=== PATIENT | male | born 1950 | race Caucasian/White ===

== ENCOUNTER → 2017-05-26 | Day surgery (SDC) | payer MEDICARE ==
[~2017-05-26] MED LIST: AMIO200T PO; AMIO200T2 PO; AMLO5TAB4 PO; ASPI325T8 PO; ATOR10TA PO; CLOP75TA57 PO; FENO54TA PO; FERR325T72 PO; GLIP10TA13 PO; GLIP5TAB10 PO; HYDR-2678 PO; HYDROmorphone 2 MG/ML VIAL IV PRN; INSU100I13 SQ; INSU100I17 SQ; INSU100I27 SQ; IV RINGERS,LACTATED 1000ML 1,000 ML IV SCH; LIDOCAINE 1% 1 ML SYRINGE. ID PRN; LIDOCAINE 2% PF Vial for OR 5 ML VIAL. ONE; LISI-334 PO; METF-620 PO; MORPHINE SULFATE 2 MG/ML DISP.SYRIN. IV PRN; Metoprolol Tartrate PO; ONDANSETRON PF 4 MG/2 ML VIAL. IV PRN; OXYC-323 PO; PANT40TA3 PO; PROCHLORPERAZINE 10 MG/2 ML VIAL. IV PRN; PROPOFOL 0 ML IV ONE; PROPOFOL 20 ML IV ONE; Sennosides/Docusate Sodium PO; TRAM50TA PO; fentaNYL PF VIAL 100 MCG/2 ML VIAL IV PRN
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
[2017-05-26 10:21] VITALS: BP 167/90
--- NOTE | 2017-05-27 13:14 | PATHOLOGY ---
PATHOLOGY REPORT * * * * * * * * FINAL DIAGNOSIS: Colon biopsy, sigmoid polyp: - Tubular adenoma. COMMENT: There is no high-grade dysplasia or evidence of malignancy. (JPM:pit; 05/27/2017) REPORT ELECTRONICALLY SIGNED BY: Robert Pascual M.D. DATE/TIME: 05/27/2017 13:13 * * * * * * * * GROSS PATHOLOGY: Received in formalin labeled "Lewis Justice, sigmoid polyp," is a segment of manzano soft tissue measuring 0.4 cm in maximum dimension. The specimen is submitted entirely in cassette A1. (JPM; 05/26/17) INITIAL CPT CODE(S): A; 00679 Professional services performed by [facility] [place] [address] Technical services performed by [facility] at [address] [place] [address], [facility] [address], [place] [address]. SPECIMEN(S) RECEIVED: A.Sigmoid polyp CLINICAL HISTORY: Screening PATIENT: LEWIS JUSTICE /AGE: 6 1950 (Age: 67) PATIENT #: [id number] ALT CASE #: SPECIMEN COLLECTION DATE: 05/26/2017 SPECIMEN RECEIVED DATE: 05/26/2017 [facility] - [address] [place] [address] - PHONE: [phone] * * * END OF REPORT * * *
== END | disposition home or self-care (01) ==
LOC: SURG 08:27
PROVIDERS: ATTEND Internal Medicine Gastroenterology
DX: Z12.11 Encounter for screening for malignant neoplasm of colon (principal); D12.5 Benign neoplasm of sigmoid colon; E78.00 Pure hypercholesterolemia, unspecified; I25.10 Atherosclerotic heart disease of native coronary artery without angina pectoris; I12.9 Hypertensive chronic kidney disease with stage 1 through stage 4 chronic kidney disease, or unspecified chronic kidney disease; E11.22 Type 2 diabetes mellitus with diabetic chronic kidney disease; N18.2 Chronic kidney disease, stage 2 (mild); D64.9 Anemia, unspecified; Z86.69 Personal history of other diseases of the nervous system and sense organs; Z90.49 Acquired absence of other specified parts of digestive tract; Z86.73 Personal history of transient ischemic attack (TIA), and cerebral infarction without residual deficits; Z88.0 Allergy status to penicillin
CPT/HCPCS: 45385; 82962; 88305; J2001; J2704

== ENCOUNTER 2018-05-24 16:11 | Inpatient (IN) | payer MEDICARE ==
[2018-05-24 17:51] LABS: ADD MAN DIFF? NO
[2018-05-24 17:53] LABS: BASO # 0.1 x10^3/uL (0.0-0.2); BASO % 1 % (0-3); EOS # 0.2 x10^3/uL (0.0-0.7); EOS % 2 % (0-3); HEMOGLOBIN 13.3 g/dL (13.0-17.5); LYMPH # 1.5 x10^3/uL (1.0-4.8); LYMPH % 14 % (24-48); MEAN CORPUSCULAR HEMOGLOBIN 29 pg (25-35); MEAN CORPUSCULAR HGB CONC 34 g/dL (31-37); MEAN CORPUSCULAR VOLUME 84 fL (79-100); MONO # 0.5 x10^3/uL (0.0-1.1); MONO % 5 % (0-9); NEUT # 8.1 x10^3uL (1.8-7.7); NEUT % 78 % (31-73); PLATELET COUNT 211 x10^3/uL (140-400); RED BLOOD COUNT 4.65 x10^6/uL (4.30-5.70); RED CELL DISTRIBUTION WIDTH 15.3 % (11.5-14.5); WHITE BLOOD COUNT 10.4 x10^3/uL (4.0-11.0)
[2018-05-24 18:03] LABS: ANION GAP 11 (6-14); BLOOD UREA NITROGEN 40 mg/dL (8-26); BUN/CREATININE RATIO 21 (6-20); CALCIUM 9.2 mg/dL (8.5-10.1); CARBON DIOXIDE 27 mmol/L (21-32); CHLORIDE 96 mmol/L (98-107); CREATININE 1.9 mg/dL (0.7-1.3); GFR 35.6; GLUCOSE 310 mg/dL (70-99); POTASSIUM 4.4 mmol/L (3.5-5.1); SODIUM 134 mmol/L (136-145)
[2018-05-24 18:09] LABS: ALBUMIN 3.8 g/dL (3.4-5.0); ALK PHOS 131 U/L (46-116); ALT (SGPT) 35 U/L (16-63); AST (SGOT) 30 U/L (15-37); TOTAL BILIRUBIN 0.4 mg/dL (0.2-1.0); TOTAL PROTEIN 7.6 g/dL (6.4-8.2)
[2018-05-24] MEDS: ONDANSETRON PF 4 MG/2 ML VIAL. IV (18:20)
[2018-05-24] MEDS ORDERED: fentaNYL PF VIAL 100 MCG/2 ML VIAL IV (19:45)
[2018-05-24] MEDS ORDERED: ONDANSETRON PF 4 MG/2 ML VIAL. IV (19:45)
[2018-05-24] MEDS ORDERED: ACETAMINOPHEN 325 MG TABLET. PO (19:45)
[2018-05-24] MEDS: IV NORMAL SALINE 1000ML BAG 1,000 ML IV (19:54)
[2018-05-25] MEDS: IV NORMAL SALINE 1000ML BAG 1,000 ML IV ×3 (03:32→12:10)
[2018-05-25 07:19] LABS: ADD MAN DIFF? NO
[2018-05-25 07:26] LABS: BASO # 0.1 x10^3/uL (0.0-0.2); BASO % 1 % (0-3); EOS # 0.2 x10^3/uL (0.0-0.7); EOS % 2 % (0-3); HEMATOCRIT 37.7 % (39.0-53.0); HEMOGLOBIN 13.1 g/dL (13.0-17.5); LYMPH # 1.6 x10^3/uL (1.0-4.8); LYMPH % 16 % (24-48); MEAN CORPUSCULAR HEMOGLOBIN 29 pg (25-35); MEAN CORPUSCULAR HGB CONC 35 g/dL (31-37); MEAN CORPUSCULAR VOLUME 84 fL (79-100); MONO # 0.6 x10^3/uL (0.0-1.1); MONO % 6 % (0-9); NEUT # 7.4 x10^3uL (1.8-7.7); NEUT % 76 % (31-73); PLATELET COUNT 167 x10^3/uL (140-400); RED BLOOD COUNT 4.49 x10^6/uL (4.30-5.70); RED CELL DISTRIBUTION WIDTH 15.1 % (11.5-14.5); WHITE BLOOD COUNT 9.8 x10^3/uL (4.0-11.0)
[2018-05-25 07:48] LABS: ANION GAP 13 (6-14); BLOOD UREA NITROGEN 37 mg/dL (8-26); CALCIUM 9.1 mg/dL (8.5-10.1); CARBON DIOXIDE 23 mmol/L (21-32); CHLORIDE 100 mmol/L (98-107); CREATININE 1.7 mg/dL (0.7-1.3); GFR 40.5; GLUCOSE 213 mg/dL (70-99); POTASSIUM 4.3 mmol/L (3.5-5.1); SODIUM 136 mmol/L (136-145)
[2018-05-25 08:04] LABS: POC GLUCOSE 224 mg/dL (70-99)
[2018-05-25] MEDS ORDERED: ACETAMINOPHEN 325 MG TABLET. PO (09:00)
[2018-05-25] MEDS ORDERED: ONDANSETRON PF 4 MG/2 ML VIAL. IV (09:00)
[2018-05-25] MEDS: MULTIVITAMIN I-VITE TABLET. PO ×3 (09:21→19:51)
[2018-05-25] MEDS: ASPIRIN 325 MG TABLET PO (09:21)
[2018-05-25] MEDS: CLOPIDOGREL BISULFATE 75 MG TABLET PO (09:22)
[2018-05-25] MEDS: FERROUS SULFATE 325 MG TABLET. PO ×3 (09:22→19:50)
[2018-05-25] MEDS: GABAPENTIN 300 MG CAPSULE. PO ×3 (09:22→21:29)
[2018-05-25] MEDS: PANTOPRAZOLE 40 MG TABLET.DR. PO (09:22)
[2018-05-25] MEDS: amLODIPine BESYLATE 5 MG TABLET PO (09:23)
[2018-05-25] MEDS: CARVEDILOL 6.25 MG TABLET. PO ×2 (09:23→17:38)
[2018-05-25] MEDS: LISINOPRIL 20 MG TABLET PO ×2 (09:23→21:29)
[2018-05-25] MEDS ORDERED: DEXTROSE 50% 25 GM / 50ML DISP.SYRIN. IV (09:45)
[2018-05-25] MEDS: INSULIN LISPRO 300 UNITS/3 ML INSULN.PEN. SQ ×3 (10:35→17:42)
[2018-05-25] MEDS: METOCLOPRAMIDE 5 MG TABLET. PO (11:30)
[2018-05-25 11:44] LABS: POC GLUCOSE 285 mg/dL (70-99)
[2018-05-25] MEDS: IV RINGERS,LACTATED 1000ML 1,000 ML IV (13:00)
[2018-05-25] MEDS ORDERED: PROPOFOL 20 ML IV (13:21)
[2018-05-25 17:02] LABS: POC GLUCOSE 233 mg/dL (70-99)
[2018-05-25 20:21] LABS: POC GLUCOSE 195 mg/dL (70-99)
[2018-05-25] MEDS: SERTRALINE 50 MG TABLET. PO (21:29)
[2018-05-25] MEDS: ATORVASTATIN CALCIUM 40 MG TABLET. PO (21:29)
[2018-05-25] MEDS: INSULIN GLARGINE 300 UNITS/3 ML INSULN.PEN. SQ (21:35)
[2018-05-26 04:39] LABS: ADD MAN DIFF? NO
[2018-05-26 04:55] LABS: BASO # 0.1 x10^3/uL (0.0-0.2); BASO % 1 % (0-3); EOS # 0.2 x10^3/uL (0.0-0.7); EOS % 3 % (0-3); HEMATOCRIT 34.9 % (39.0-53.0); HEMOGLOBIN 12.2 g/dL (13.0-17.5); LYMPH # 1.5 x10^3/uL (1.0-4.8); LYMPH % 21 % (24-48); MEAN CORPUSCULAR HEMOGLOBIN 29 pg (25-35); MEAN CORPUSCULAR HGB CONC 35 g/dL (31-37); MEAN CORPUSCULAR VOLUME 83 fL (79-100); MONO # 0.5 x10^3/uL (0.0-1.1); MONO % 7 % (0-9); NEUT # 4.8 x10^3uL (1.8-7.7); NEUT % 69 % (31-73); PLATELET COUNT 166 x10^3/uL (140-400); RED BLOOD COUNT 4.22 x10^6/uL (4.30-5.70); RED CELL DISTRIBUTION WIDTH 14.9 % (11.5-14.5)
[2018-05-26 05:12] LABS: ALBUMIN 3.1 g/dL (3.4-5.0); ALBUMIN/GLOBULIN RATIO 0.9 (1.0-1.7); ALK PHOS 118 U/L (46-116); ALT (SGPT) 31 U/L (16-63); ANION GAP 10 (6-14); AST (SGOT) 27 U/L (15-37); BLOOD UREA NITROGEN 22 mg/dL (8-26); BUN/CREATININE RATIO 17 (6-20); CALCIUM 8.6 mg/dL (8.5-10.1); CARBON DIOXIDE 27 mmol/L (21-32); CHLORIDE 102 mmol/L (98-107); CREATININE 1.3 mg/dL (0.7-1.3); GFR 55.2; GLUCOSE 238 mg/dL (70-99); MAGNESIUM 1.3 mg/dL (1.8-2.4); POTASSIUM 3.6 mmol/L (3.5-5.1); SODIUM 139 mmol/L (136-145); TOTAL BILIRUBIN 0.4 mg/dL (0.2-1.0); TOTAL PROTEIN 6.6 g/dL (6.4-8.2)
[2018-05-26] MEDS: PANTOPRAZOLE 40 MG TABLET.DR. PO (07:00)
[2018-05-26] MEDS: GABAPENTIN 300 MG CAPSULE. PO (07:30)
[2018-05-26] MEDS: CARVEDILOL 6.25 MG TABLET. PO (08:00)
[2018-05-26] MEDS: CLOPIDOGREL BISULFATE 75 MG TABLET PO (08:00)
[2018-05-26] MEDS: amLODIPine BESYLATE 5 MG TABLET PO (09:00)
[2018-05-26] MEDS: LISINOPRIL 20 MG TABLET PO (09:00)
[2018-05-26] MEDS: ASPIRIN 325 MG TABLET PO (09:00)
[2018-05-26 09:28] LABS: POC GLUCOSE 264 mg/dL (70-99)
[2018-05-26] MEDS: MAGNESIUM SULFATE 4GM 100 ML IV (10:09)
[2018-05-26] MEDS: INSULIN LISPRO 300 UNITS/3 ML INSULN.PEN. SQ ×2 (10:16→12:35)
[2018-05-26 12:29] LABS: POC GLUCOSE 235 mg/dL (70-99)
== END 2018-05-26 15:01 | disposition home or self-care (01) | DRG 391 ==
LOC: ER 16:11 → 5 SOUTH 18:59
PROC: 0DB68ZX Excision of Stomach, Via Natural or Artificial Opening Endoscopic, Diagnostic (ICD-10-PCS; principal; 2018-05-25 13:26)
DX: K29.70 Gastritis, unspecified, without bleeding (principal); N17.0 Acute kidney failure with tubular necrosis; E11.22 Type 2 diabetes mellitus with diabetic chronic kidney disease; K21.0 Gastro-esophageal reflux disease with esophagitis; E11.40 Type 2 diabetes mellitus with diabetic neuropathy, unspecified; E78.5 Hyperlipidemia, unspecified; F02.80 Dementia in other diseases classified elsewhere, unspecified severity, without behavioral disturbance, psychotic disturbance, mood disturbance, and anxiety; G30.9 Alzheimer's disease, unspecified; I12.9 Hypertensive chronic kidney disease with stage 1 through stage 4 chronic kidney disease, or unspecified chronic kidney disease; E83.42 Hypomagnesemia; D64.9 Anemia, unspecified; I25.10 Atherosclerotic heart disease of native coronary artery without angina pectoris; E86.0 Dehydration; I16.0 Hypertensive urgency; M19.90 Unspecified osteoarthritis, unspecified site; N18.2 Chronic kidney disease, stage 2 (mild); Z82.3 Family history of stroke; Z82.49 Family history of ischemic heart disease and other diseases of the circulatory system; Z91.14 Patient's other noncompliance with medication regimen; Z95.1 Presence of aortocoronary bypass graft; Z83.3 Family history of diabetes mellitus; I69.393 Ataxia following cerebral infarction; Z79.4 Long term (current) use of insulin; Z88.0 Allergy status to penicillin
CPT/HCPCS: 36415; 74022; 78264; 80048; 80053; 82962; 83735; 85025; 93005; 96374; 97110-GP; 97116-GP; 97162-GP; 97166-GO; 97530-GP; 99285-25; A9541; J1815; J2405; J2704; J3475; J7030; J7120

== ENCOUNTER 2018-07-12 12:50 | Inpatient (IN) | payer MEDICARE ==
[~2018-07-12] VITALS: Ht 180.3 cm; Wt 113.4 kg
[~2018-07-12 12:50] MED LIST changes: -AMIO200T2 PO; +AMIO200T4 PO; +ATOR40TA PO; +CARV6.25 PO; +CLOP75TA PO; +GABA-586 PO; +HYDR12.58 PO; -HYDROmorphone 2 MG/ML VIAL IV PRN; -IV RINGERS,LACTATED 1000ML 1,000 ML IV SCH; -LIDOCAINE 1% 1 ML SYRINGE. ID PRN; -LIDOCAINE 2% PF Vial for OR 5 ML VIAL. ONE; -METF-620 PO; +METF10007 PO; +METF500T16 PO; -MORPHINE SULFATE 2 MG/ML DISP.SYRIN. IV PRN; +MULT-690 PO; -ONDANSETRON PF 4 MG/2 ML VIAL. IV PRN; -PROCHLORPERAZINE 10 MG/2 ML VIAL. IV PRN; -PROPOFOL 0 ML IV ONE; -PROPOFOL 20 ML IV ONE; +SERT100T PO; -fentaNYL PF VIAL 100 MCG/2 ML VIAL IV PRN
[2018-07-12] MEDS ORDERED: IV NORMAL SALINE 1000ML BAG 1,000 ML IV SCH (13:47)
[2018-07-12 13:59] LABS: BASO % 1 % (0-3); EOS # 0.1 x10^3/uL (0.0-0.7); EOS % 2 % (0-3); HEMATOCRIT 37.3 % (39.0-53.0); HEMOGLOBIN 12.8 g/dL (13.0-17.5); LYMPH # 1.1 x10^3/uL (1.0-4.8); LYMPH % 12 % (24-48); MEAN CORPUSCULAR HEMOGLOBIN 28 pg (25-35); MEAN CORPUSCULAR HGB CONC 34 g/dL (31-37); MEAN CORPUSCULAR VOLUME 82 fL (79-100); MONO # 0.5 x10^3/uL (0.0-1.1); MONO % 6 % (0-9); NEUT # 7.4 x10^3uL (1.8-7.7); NEUT % 80 % (31-73); PLATELET COUNT 212 x10^3/uL (140-400); RED BLOOD COUNT 4.56 x10^6/uL (4.30-5.70); RED CELL DISTRIBUTION WIDTH 15.3 % (11.5-14.5); WHITE BLOOD COUNT 9.2 x10^3/uL (4.0-11.0)
[2018-07-12 14:07] LABS: PROTHROMBIN TIME PATIENT 13.8 SEC (11.7-14.0)
[2018-07-12 14:36] LABS: CALCIUM 9.9 mg/dL (8.5-10.1); CREATININE 1.4 mg/dL (0.7-1.3); GFR 50.7; POTASSIUM 4.1 mmol/L (3.5-5.1)
[2018-07-12 14:43] LABS: ALBUMIN 3.6 g/dL (3.4-5.0); ALBUMIN/GLOBULIN RATIO 0.9 (1.0-1.7); MAGNESIUM 1.5 mg/dL (1.8-2.4); TOTAL BILIRUBIN 0.5 mg/dL (0.2-1.0); TOTAL PROTEIN 7.6 g/dL (6.4-8.2)
--- NOTE | 2018-07-12 15:17 | RAD ---
EXAM: Right elbow, 3 views; right shoulder, 3 views; chest and right ribs, 5 views. HISTORY: Fall. COMPARISON: None. FINDINGS: Right elbow: 3 views of the right elbow are obtained. There is no acute fracture. There is enthesopathy along the olecranon at the triceps insertion. There is a corticated ossicle adjacent to the medial epicondyle, likely due to the sequela of remote injury. There is no elbow effusion to suggest occult fracture. There is a 6 mm benign osseous excrescence along the distal humeral diaphysis, possibly a cortical desmoid. Right shoulder: 3 views of the right shoulder obtained. There is no fracture, dislocation or subluxation. There is mild acromioclavicular spurring, including a small infiltrate detected distal clavicular spur. There is also minimal glenohumeral spurring. Chest and right ribs: 5 views of the chest and ribs are obtained. There is no infiltrate, pleural effusion or pneumothorax. The heart is normal in size. There is evidence of prior CABG. There are few calcified granulomas. No displaced fracture is seen. IMPRESSION: 1. No acute pulmonary or osseous finding. 2. Mild right glenohumeral and acromioclavicular osteoarthritis and degenerative or remote posttraumatic changes involving the right elbow. Electronically signed by: Eve Hutson MD (07/12/2018 3:13 PM) [place] [id number]
--- NOTE | 2018-07-12 15:41 | RAD ---
CT head and cervical spine without contrast History: Syncope, fall, dizziness, neck pain Technique: Noncontrast CT imaging was performed of the head and cervical spine. Multiplanar reconstruction images are submitted. Exposure: One or more of the following individualized dose reduction techniques were utilized for this examination: 1. Automated exposure control 2. Adjustment of the mA and/or kV according to patient size 3. Use of iterative reconstruction technique. Head CT Comparison: None Findings: No acute extra-axial or parenchymal hemorrhage is identified. There is focus of encephalomalacia with cortical involvement of the left occipital lobe. There is no significant intra-axial mass effect, midline shift, or extra-axial fluid collection. The estrada-white differentiation of the major vascular territories is preserved. The ventricles, sulci, and cisterns are within normal limits in size and configuration. The mastoid air cells and the visualized paranasal sinuses are aerated. There is no significant focal calvarial abnormality. Impression: 1. No acute intracranial abnormality is identified. 2. There is focus of encephalomalacia with cortical involvement of the left occipital lobe likely due to sequela of old infarct. Cervical spine CT Comparison: None Findings: Vertebral body stature is maintained. There are larger anterolateral osteophytes C3-4 through the remainder of the inferior cervical spine with some degree of pseudoarticulation or effusion. AP alignment is within normal limits. There is narrowing of the C2-3 intervertebral disc space on a developmental basis. There is multilevel cervical facet degenerative change. There is spondylosis greatest C3-4, C5-6, C6-7. There is likely central canal stenosis C5-6-6 about 9 mm. Uncovertebral degenerative change contributes to mild neural foramina compromise bilaterally at C5-6 and on the left at C3-C4. There is mild degenerative disc disease C4-5 to C6-7. There is mild cervical dextroscoliosis. Impression: 1. No acute cervical spine fracture is identified. 2. There is mild spinal stenosis C5-6. There is mild neural foramina compromise as stated. There are large anterolateral osteophytes throughout the cervical spine, greatest degree of pseudoarticulation and fusion. Electronically signed by: Akash Knutson MD (07/12/2018 3:37 PM) [facility]
--- NOTE | 2018-07-12 16:09 | PHYS DOC ---
Past Medical History Past Medical History: CAD, Diabetes-Type II, High Cholesterol, Hypertension, MT Additional Past Medical Histor: EARLY ONSET OF ALZHEIMERS Past Surgical History: Cholecystectomy, Coronary Bypass Surgery, Other Additional Past Surgical Histo: LEFT SHOULDER SURGERY, CABG X 3 Alcohol Use: None Drug Use: None Adult General Chief Complaint Chief Complaint: NAUSEA/VOMITING/DIARRHA HPI HPI Patient is a 68 year old was sent here from his doctor office for evaluation due to nausea, vomiting, dizziness since yesterday. He says he felt dizzy, passed out, landed onto a hardwood floor on his right side, injuring his right elbow and right chest. She denies any headache, no neck pain. Patient denies any back pain, no abdominal pain, no diarrhea. Review of Systems Review of Systems Constitutional: Denies fever or chills [] Eyes: Denies change in visual acuity, redness, or eye pain [] HENT: Denies nasal congestion or sore throat [] Respiratory: Denies cough or shortness of breath [] Cardiovascular: No additional information not addressed in HPI [] GI: Denies abdominal pain, Positive for nausea, vomiting, NO bloody stools or diarrhea [] : Denies dysuria or hematuria [] Musculoskeletal: Denies back pain or joint pain [] Integument: Denies rash or skin lesions [] Neurologic: Denies headache, focal weakness or sensory changes [] Endocrine: Denies polyuria or polydipsia [] All other systems were reviewed and found to be within normal limits, except as documented in this note. Current Medications Current Medications Current Medications Medications (Trade) Dose Ordered Sig/Jed Start Time Stop Time Status Last Admin Dose Admin Ondansetron HCl (Zofran) 4 mg PRN Q8HRS PRN 07/12/18 16:45 07/13/18 16:44 Sodium Chloride 1,000 ml @ 1,000 mls/hr Q1H 07/12/18 13:47 07/12/18 14:46 DC 07/12/18 14:09 1,000 MLS/HR Allergies Allergies Allergies Coded Allergies Type Severity Reaction Last Updated Verified Penicillins Allergy Severe hives, itching, swelling 05/25/18 Yes Physical Exam Physical Exam Constitutional: Well developed, well nourished, no acute distress, non-toxic appearance. [] HENT: Normocephalic, atraumatic, bilateral external ears normal, oropharynx moist, no oral exudates, nose normal. [] Eyes: PERRLA, EOMI, conjunctiva normal, no discharge. [] Neck: Normal range of motion, no tenderness, supple, no stridor. [] Cardiovascular:Heart rate regular rhythm, no murmur [] Lungs & Thorax: Bilateral breath sounds clear to auscultation, RIGHT SIDE RIB CAUSE ANALYST TO PALPATION, NO CREPITUS. Abdomen: Bowel sounds normal, soft, no tenderness, no masses, no pulsatile masses. [] Skin: Warm, dry, no erythema, no rash. [] Back: No tenderness, no CVA tenderness. [] Extremities: RIGHT SIDE ELBOW AND RIGHT SHOULDER ARE TENDER TO PALPATION, NO SWELLING, NO DEFORMITY NOTED, Neurologic: Alert and oriented X 3, normal motor function, normal sensory function, no focal deficits noted. [] Psychologic: Affect normal, judgement normal, mood normal. [] Current Patient Data Vital Signs Vital Signs Date Time Temp Pulse Resp B/P (MAP) Pulse Ox O2 Delivery O2 Flow Rate FiO2 07/12/18 13:31 97.8 66 18 127/66 (86) 96 Room Air 97.8 Lab Values Laboratory Tests Test 07/12/18 13:35 White Blood Count 9.2 x10^3/uL (4.0-11.0) Red Blood Count 4.56 x10^6/uL (4.30-5.70) Hemoglobin 12.8 g/dL (13.0-17.5) L Hematocrit 37.3 % (39.0-53.0) L Mean Corpuscular Volume 82 fL (79-100) Mean Corpuscular Hemoglobin 28 pg (25-35) Mean Corpuscular Hemoglobin Concent 34 g/dL (31-37) Red Cell Distribution Width 15.3 % (11.5-14.5) H Platelet Count 212 x10^3/uL (140-400) Neutrophils (%) (Auto) 80 % (31-73) H Lymphocytes (%) (Auto) 12 % (24-48) L Monocytes (%) (Auto) 6 % (0-9) Eosinophils (%) (Auto) 2 % (0-3) Basophils (%) (Auto) 1 % (0-3) Neutrophils # (Auto) 7.4 x10^3uL (1.8-7.7) Lymphocytes # (Auto) 1.1 x10^3/uL (1.0-4.8) Monocytes # (Auto) 0.5 x10^3/uL (0.0-1.1) Eosinophils # (Auto) 0.1 x10^3/uL (0.0-0.7) Basophils # (Auto) 0.0 x10^3/uL (0.0-0.2) Prothrombin Time 13.8 SEC (11.7-14.0) Prothrombin Time INR 1.1 (0.8-1.1) PTT 29 SEC (24-38) Sodium Level 138 mmol/L (136-145) Potassium Level 4.1 mmol/L (3.5-5.1) Chloride Level 99 mmol/L (98-107) Carbon Dioxide Level 27 mmol/L (21-32) Anion Gap 12 (6-14) Blood Urea Nitrogen 24 mg/dL (8-26) Creatinine 1.4 mg/dL (0.7-1.3) H Estimated GFR (Cockcroft-Gault) 50.7 BUN/Creatinine Ratio 17 (6-20) Glucose Level 189 mg/dL (70-99) H Calcium Level 9.9 mg/dL (8.5-10.1) Magnesium Level 1.5 mg/dL (1.8-2.4) L Total Bilirubin 0.5 mg/dL (0.2-1.0) Aspartate Amino Transferase (AST) 28 U/L (15-37) Alanine Aminotransferase (ALT) 37 U/L (16-63) Alkaline Phosphatase 95 U/L (46-116) Creatine Kinase 30 U/L (39-308) L Troponin I Quantitative < 0.017 ng/mL (0.000-0.055) KC-Cka-Y-Type Natriuretic Peptide 248 pg/mL (0-124) H Total Protein 7.6 g/dL (6.4-8.2) Albumin 3.6 g/dL (3.4-5.0) Albumin/Globulin Ratio 0.9 (1.0-1.7) L Lipase 239 U/L (73-393) Laboratory Tests 07/12/18 13:35 Laboratory Tests 07/12/18 13:35 EKG EKG [] Radiology/Procedures Radiology/Procedures [][facility] [address] [place] [address] IMAGING REPORT Signed PATIENT: DUSTY JUSTICE ACCOUNT: [id number] : 1950 LOCATION: ER AGE: 68 SEX: M EXAM STATUS: REG ER ORD. PHYSICIAN: YRIS BOYD DO REASON: HAD A SYNCOPE, FELL DOWN, DIZZY, NECK PAIN, PROCEDURE: CT HEAD AND CERVICAL SPINE WO CT head and cervical spine without contrast History: Syncope, fall, dizziness, neck pain Technique: Noncontrast CT imaging was performed of the head and cervical spine. Multiplanar reconstruction images are submitted. Exposure: One or more of the following individualized dose reduction techniques were utilized for this examination: 1. Automated exposure control 2. Adjustment of the mA and/or kV according to patient size 3. Use of iterative reconstruction technique. Head CT Comparison: None Findings: No acute extra-axial or parenchymal hemorrhage is identified. There is focus of encephalomalacia with cortical involvement of the left occipital lobe. There is no significant intra-axial mass effect, midline shift, or extra-axial fluid collection. The estrada-white differentiation of the major vascular territories is preserved. The ventricles, sulci, and cisterns are within normal limits in size and configuration. The mastoid air cells and the visualized paranasal sinuses are aerated. There is no significant focal calvarial abnormality. Impression: 1. No acute intracranial abnormality is identified. 2. There is focus of encephalomalacia with cortical involvement of the left occipital lobe likely due to sequela of old infarct. Cervical spine CT Comparison: None Findings: Vertebral body stature is maintained. There are larger anterolateral osteophytes C3-4 through the remainder of the inferior cervical spine with some degree of pseudoarticulation or effusion. AP alignment is within normal limits. There is narrowing of the C2-3 intervertebral disc space on a developmental basis. There is multilevel cervical facet degenerative change. There is spondylosis greatest C3-4, C5-6, C6-7. There is likely central canal stenosis C5-6-6 about 9 mm. Uncovertebral degenerative change contributes to mild neural foramina compromise bilaterally at C5-6 and on the left at C3-C4. There is mild degenerative disc disease C4-5 to C6-7. There is mild cervical dextroscoliosis. Impression: 1. No acute cervical spine fracture is identified. 2. There is mild spinal stenosis C5-6. There is mild neural foramina compromise as stated. There are large anterolateral osteophytes throughout the cervical spine, greatest degree of pseudoarticulation and fusion. Electronically signed by: Dick Varela MD (07/12/2018 3:37 PM) [id number] DICTATED and SIGNED BY: DICK VARELA MD DATE: 07/12/18 1529 [facility] [address] [place] [address] IMAGING REPORT Signed PATIENT: DUSTY JUSTICE ACCOUNT: [id number] : 1950 LOCATION: ER AGE: 68 SEX: M EXAM STATUS: REG ER ORD. PHYSICIAN: YRIS BOYD DO REASON: FELL, RIGHT ELBOW PAIN, RIGHT SIDE RIBS PAIN PROCEDURE: ELBOW RIGHT 3V EXAM: Right elbow, 3 views; right shoulder, 3 views; chest and right ribs, 5 views. HISTORY: Fall. COMPARISON: None. FINDINGS: Right elbow: 3 views of the right elbow are obtained. There is no acute fracture. There is enthesopathy along the olecranon at the triceps insertion. There is a corticated ossicle adjacent to the medial epicondyle, likely due to the sequela of remote injury. There is no elbow effusion to suggest occult fracture. There is a 6 mm benign osseous excrescence along the distal humeral diaphysis, possibly a cortical desmoid. Right shoulder: 3 views of the right shoulder obtained. There is no fracture, dislocation or subluxation. There is mild acromioclavicular spurring, including a small infiltrate detected distal clavicular spur. There is also minimal glenohumeral spurring. Chest and right ribs: 5 views of the chest and ribs are obtained. There is no infiltrate, pleural effusion or pneumothorax. The heart is normal in size. There is evidence of prior CABG. There are few calcified granulomas. No displaced fracture is seen. IMPRESSION: 1. No acute pulmonary or osseous finding. 2. Mild right glenohumeral and acromioclavicular osteoarthritis and degenerative or remote posttraumatic changes involving the right elbow. Electronically signed by: Eve Summers MD (07/12/2018 3:13 PM) [place] [address] DICTATED and SIGNED BY: EVE SUMMERS MD DATE: 07/12/18 6290 Course & Med Decision Making Course & Med Decision Making Pertinent Labs and Imaging studies reviewed. (See chart for details) [] Dragon Disclaimer Dragon Disclaimer This electronic medical record was generated, in whole or in part, using a voice recognition dictation system. Departure Departure Impression: Primary Impression: Syncope and collapse Additional Impressions: Nausea & vomiting Contusion of rib on right side Contusion of right elbow Disposition: ADMITTED INPATIENT Admitting Physician: Mary Kate Blackburn Condition: STABLE Referrals: MARY KATE BLACKBURN MD (PCP) Problem Qualifiers YRIS BOYD DO Jul 12, 2018 16:09
[2018-07-12] MEDS ORDERED: ONDANSETRON PF 4 MG/2 ML VIAL. IV PRN (16:45)
[2018-07-12 17:46] LABS: BILIRUBIN,URINE NEGATIVE (NEG); CLARITY,URINE CLEAR; COLOR,URINE YELLOW; NITRITE,URINE NEGATIVE (NEG); PH,URINE 5.5; PROTEIN,URINE NEGATIVE (NEG-TRACE)
[2018-07-12 18:00] VITALS: BP 165/56
[2018-07-12 18:00] LABS: BACTERIA,URINE MODERATE /HPF (0-FEW); HYALINE CASTS, URINE MODERATE /HPF; RBC,URINE 0 /HPF (0-2); SQUAMOUS EPITHELIAL CELL,UR FEW /LPF
[2018-07-12] MEDS ORDERED: PANT20TA2 PO (18:15)
[2018-07-12] MEDS ORDERED: INSU100C4 SQ (18:15)
[2018-07-12] MEDS ORDERED: INSU100V13 SQ (18:15)
[2018-07-12 19:00] VITALS: BP 173/82
[2018-07-12] MEDS ORDERED: INFLUENZA VAX SCREEN BY RX. MC ONE (19:00)
[2018-07-12] MEDS ORDERED: PROC5TAB14 PO (19:05)
[2018-07-12] MEDS ORDERED: ACETAMINOPHEN 325 MG TABLET. PO PRN (19:30)
[2018-07-12] MEDS ORDERED: DEXTROSE 50% 25 GM / 50ML DISP.SYRIN. IV PRN (19:30)
[2018-07-12] MEDS ORDERED: PROCHLORPERAZINE 5 MG TABLET. PO PRN (20:30)
[2018-07-12] MEDS: INSULIN GLARGINE 300 UNITS/3 ML INSULN.PEN. SQ SCH (21:41)
[2018-07-12] MEDS: ATORVASTATIN CALCIUM 40 MG TABLET. PO SCH (21:49)
[2018-07-12] MEDS: GABAPENTIN 300 MG CAPSULE. PO SCH (21:49)
[2018-07-12] MEDS: SERTRALINE 50 MG TABLET. PO SCH (21:50)
[2018-07-12 23:00] VITALS: BP 188/99
[2018-07-13] VITALS (8 sets, daily range): BP systolic 115–192; BP diastolic 63–99
[2018-07-13 05:31] LABS: BASO % 1 % (0-3); EOS # 0.2 x10^3/uL (0.0-0.7); EOS % 3 % (0-3); HEMATOCRIT 35.5 % (39.0-53.0); HEMOGLOBIN 12.3 g/dL (13.0-17.5); LYMPH # 1.4 x10^3/uL (1.0-4.8); LYMPH % 18 % (24-48); MEAN CORPUSCULAR HEMOGLOBIN 28 pg (25-35); MEAN CORPUSCULAR HGB CONC 35 g/dL (31-37); MEAN CORPUSCULAR VOLUME 82 fL (79-100); MONO # 0.4 x10^3/uL (0.0-1.1); MONO % 5 % (0-9); NEUT # 5.7 x10^3uL (1.8-7.7); NEUT % 73 % (31-73); PLATELET COUNT 191 x10^3/uL (140-400); RED BLOOD COUNT 4.35 x10^6/uL (4.30-5.70); RED CELL DISTRIBUTION WIDTH 15.6 % (11.5-14.5); WHITE BLOOD COUNT 7.8 x10^3/uL (4.0-11.0)
[2018-07-13 05:58] LABS: ALBUMIN 3.3 g/dL (3.4-5.0); ALBUMIN/GLOBULIN RATIO 0.9 (1.0-1.7); CALCIUM 9.6 mg/dL (8.5-10.1); CREATININE 1.2 mg/dL (0.7-1.3); GFR 60.6; POTASSIUM 3.9 mmol/L (3.5-5.1); TOTAL BILIRUBIN 0.5 mg/dL (0.2-1.0)
--- NOTE | 2018-07-13 06:25 | EKG ---
[facility] [address] [place] [address] Test Date: 2018-07-12 Test Time: 14:21:42 Pat Name: DUSTY JUSTICE Department: Room: 422 1 Gender: M Medical Collections Representative: : 1950 Requested By: YRIS BOYD Order Number: [id number] Reading MD: Peter Grissom MD Measurements Intervals [place] Rate: 60 P: 40 FL: 152 QRS: 4 QRSD: 134 T: 28 QT: 432 QTc: 436 Interpretive Statements SINUS RHYTHM ATRIAL PREMATURE COMPLEX(ES) RIGHT BUNDLE BRANCH BLOCK Electronically Signed On 07-13-2018 12:46:12 CDT by Peter Grissom MD
[2018-07-13] MEDS ORDERED: CARVEDILOL 6.25 MG TABLET. PO SCH (08:00)
[2018-07-13] MEDS: ASPIRIN 325 MG TABLET PO SCH (08:44)
[2018-07-13] MEDS: PANTOPRAZOLE 40 MG TABLET.DR. PO SCH (08:44)
[2018-07-13] MEDS: hydroCHLOROthiazide 12.5 MG CAPSULE PO SCH (08:44)
[2018-07-13] MEDS: CLOPIDOGREL BISULFATE 75 MG TABLET PO SCH (08:45)
[2018-07-13] MEDS: INSULIN LISPRO 300 UNITS/3 ML INSULN.PEN. SQ SCH ×5 (08:59→17:25)
[2018-07-13] MEDS: INSULIN GLARGINE 300 UNITS/3 ML INSULN.PEN. SQ SCH ×2 (09:00→21:13)
[2018-07-13] MEDS ORDERED: LISINOPRIL 20 MG TABLET PO SCH (09:00)
--- NOTE | 2018-07-13 10:08 | PDOC ---
Provider Note Provider Note Patient seen. History and Physical dictated. See dictation#[id number] MARY KATE RYAN MD Jul 13, 2018 10:08
--- NOTE | 2018-07-13 10:59 | HP ---
ADMIT DATE: 07/12/2018 HISTORY OF PRESENT ILLNESS: This 68-year-old male who has a history of diabetes mellitus type 2 with neuropathy and has multiple chronic medical problems including history of recurrent vomiting in the past, started vomiting the day before yesterday and passed out. He fell and hurt his right elbow and right side of the chest. Yesterday morning, he vomited 3 times and then when he came to the office, he had a large vomitus with continuous copious vomiting. Because of his dizziness, syncope, likely dehydration and not able to eat with persistent vomiting, the patient was sent to the Emergency Room. In the Emergency Room, the patient had a CT scan of head that did not show any acute abnormalities. There is a focus of encephalomalacia with cortical involvement of the left occipital lobe, likely due to sequelae of old infarct. Cervical spine CT showed no fracture, mild spinal stenosis C5-C6, with large anterolateral osteophytes throughout the cervical spine, greatest degree of pseudoarticulation and fusion. Right elbow and the shoulder showed mild right glenohumeral and acromioclavicular osteoarthritis and degenerative changes involving the right elbow. Because of his multiple medical problems, the patient was admitted for further evaluation and management. The patient also has vascular dementia that is getting worse for last 2 days per . SYSTEM REVIEW: The patient denies any vomiting this morning. He denies any headaches. His elbow pain and right-sided pain is improving. He denies any fever or chills, GI bleeding, heartburn. He does admit to some weakness and difficulty walking. Other systems reviewed and are negative. PAST MEDICAL HISTORY: The patient was last admitted here in 04/2018. At that time, he was treated for acute renal failure with underlying CKD; vasomotor nephritis due to secondary nausea, vomiting, dehydration. He had intractable nausea, vomiting with food/medication without abdominal pain. He has a history of coronary artery disease, CABG and also he had hypertensive urgency; hypertension; diabetes mellitus type 2, not controlled due to noncompliance; CKD 2 and neuropathy. He has a history of CVA, left cerebellar, left parietal and left frontal estevez. He has dementia; bilateral carotid artery disease; hypertension; myocardial infarction; hyperlipidemia; osteoarthritis; chronic renal insufficiency; CKD 2; diabetes mellitus type 2 with neuropathy, insulin-dependent; recurrent vomiting, as per family previous gastric emptying test was negative. PAST SURGICAL HISTORY: The patient has cholecystectomy, CABG, left CEA done in 03/2018. FAMILY HISTORY: Positive for cancer, diabetes, hypertension, and stroke. SOCIAL HISTORY: Lives at home. . No history of smoking, alcoholism or drug abuse. MEDICATIONS: I reviewed the medications. Please review the orders. ALLERGIES: The patient IS ALLERGIC TO PENICILLIN. PHYSICAL EXAMINATION: GENERAL: The patient is an elderly male who is alert, oriented, forgetful and not in acute distress. VITAL SIGNS: Temperature 97.9, pulse 80 per minute, respirations 18 per minute. Blood pressure 188/99 on admission, then it went up to 192/99, now it is 154/73 mmHg. The patient is not in acute distress. EYES: Pupils reacting to light. Conjunctivae pale. Sclerae muddy. HEENT: Unremarkable. NECK: Supple. JVP normal. No thyromegaly. Trachea midline. LUNGS: Clear with decreased breath sounds at bases. CARDIOVASCULAR: S1, S2 regular. ABDOMEN: Soft, obese, nontender, no guarding, no rigidity. Bowel sounds present. No guarding, no tenderness. EXTREMITIES: No edema, no cyanosis, no calf tenderness. The patient has peripheral neuropathy. CENTRAL NERVOUS SYSTEM: The patient is alert and oriented, but forgetful. He is able to move all extremities. No focal neurovascular deficit noted at this time other than cognitive deficits. LABORATORY DATA: WBC count 9.2, hemoglobin 12.8. Sodium 138; potassium 3.9; BUN was 24 and creatinine 1.4 on admission, now BUN is 19 and creatinine 1.2 today; glucose 152, 203 and 240. Troponin is less than 0.017. BNP is 248, albumin 3.3, lipase 120. Magnesium is 1.5. Sodium 138, potassium 4.1, bicarbonate 27. Urinalysis, moderate bacteriuria, wbc's 11-20, nitrite negative. IMPRESSION: 1. Syncope, likely vasovagal due to persistent vomiting. 2. Fall with trauma to the right elbow and right side. X-rays are negative so far. 3. Recurrent vomiting, multifactorial. 4. 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 Also worse due to noncompliance. 5. Vascular dementia. 6. Hypertensive crisis. 7. Dehydration. 8. Acute metabolic encephalopathy, improving. 9. Coronary artery disease. 10. History of coronary artery bypass graft. 11. Gait disorder. 12. Moderate protein-calorie malnutrition. 13. History of depression. 14. Hyperlipidemia. 15. History of recurrent non-injury falls in the past. 16. Bilateral carotid artery stenosis. 17. History of cerebrovascular accidents, [id number], left estevez radiata infarct in 2016. 18. History of carotid artery stenosis with ICA and ECA status post left CEA in end of March of 2018. 19. History of vertebral artery occlusion. 20. History of severe stenosis proximal basilar artery. 21. Bradycardia. 22. History of cerebrovascular accident, left cerebellar and left parietal with ataxia in 2017. PLAN: Continue to advance diet. The patient's vomiting is improving. Consult Dr. Schumacher for GI evaluation and management. We will consult Dr. Freeman for gait disorder and multiple falls. We will consult Dr. Robison for syncope. The patient and family does not want to see Dr. Melo for his vascular dementia. Prognosis of this patient is very poor due to his noncompliance and multiple medical problems. I will use hydralazine 10 mg IV q.6 hours p.r.n. for blood pressure systolic more than 160. I have initially decreased the dose of his insulin, but now today I will increase it gradually as his oral intake improves. Advance diet as tolerated. For details, please refer to the orders. MARY KATE RYAN MD DR: REENA/andrae JOB#: [id number] / [id number]
[2018-07-13] MEDS ORDERED: MAGNESIUM SULFATE 2GM 50 ML IV ONE ×2 (11:00→13:30)
--- NOTE | 2018-07-13 11:55 | PDOC2 ---
GI CONSULT Reason For Consult: Vomiting HPI: HPI: 68 y/o male known to Dr. Schumacher. H/o n/v, bothersome since left carotid endarterectomy in 03/2018. Had EGD on 05/25/18 w/ Grade A reflux, retained food, antral erythema (no H. pylori, and normal duodenum). GES the following day was normal w/ T1/2 41 min. Was discharged. reports that vomiting recurred before they arrived home that day and has continued - not daily, but typically every 2-3 days. Occurs randomly - before eating or after eating - sometimes bilious, sometimes food. On the days he does not get sick, he eats and drinks normally. Has an anti-emetic at home (?maybe Zofran) that he takes about twice daily. Has also continued PPI QD. Sometimes feels dizzy and falls (which prompted eval w/ PCP yesterday - apparently some LOC, then was sent to ER) but falling/dizziness do not always correlate to vomiting. No dysphagia, abd pain, hematemesis, hematochezia, melena, diarrhea, constipation. Has lost ~10 pounds. H/o IDDM - indicates glucose generally high at home, thinks last A1c about 10 (was >13 in 09/2017). S/p cholecystectomy. On Plavix and ASA, no NSAIDs. frustrated w/ ongoing issues - says he does better here at the hospital when his diet is limited but then goes home and attempts his normal diet and does worse. Cardiology and neurology consults pending. PMH: PMH: CAD s/p CABG, HTN, HLD, [place], DM, CKD, CVA, OA, dementia, bilateral CEA, cholecystectomy FH: Family History: CAD Social History: ALCOHOL: none Drugs: None ROS: GEN: Denies fevers, chills, sweats HEENT: Denies blurred vision, sore throat CV: Denies chest pain RESP: Denies shortness of air, cough GI: Per HPI : Denies hematuria, dysuria ENDO: +weight loss NEURO: +dizziness MSK: Denies weakness, joint pain/swelling SKIN: Denies jaundice, pruritus Vitals: Vitals: Vital Signs Date Time Temp Pulse Resp B/P (MAP) Pulse Ox O2 Delivery O2 Flow Rate FiO2 07/13/18 11:08 64 134/74 (94) 9/18/18 07:00 97.9 18 98 Room Air 97.9 Labs: Labs: Laboratory Tests Test 07/12/18 13:35 07/12/18 17:30 07/12/18 20:56 07/13/18 04:10 White Blood Count 9.2 x10^3/uL (4.0-11.0) 7.8 x10^3/uL (4.0-11.0) Red Blood Count 4.56 x10^6/uL (4.30-5.70) 4.35 x10^6/uL (4.30-5.70) Hemoglobin 12.8 g/dL (13.0-17.5) 12.3 g/dL (13.0-17.5) Hematocrit 37.3 % (39.0-53.0) 35.5 % (39.0-53.0) Mean Corpuscular Volume 82 fL (79-100) 82 fL (79-100) Mean Corpuscular Hemoglobin 28 pg (25-35) 28 pg (25-35) Mean Corpuscular Hemoglobin Concent 34 g/dL (31-37) 35 g/dL (31-37) Red Cell Distribution Width 15.3 % (11.5-14.5) 15.6 % (11.5-14.5) Platelet Count 212 x10^3/uL (140-400) 191 x10^3/uL (140-400) Neutrophils (%) (Auto) 80 % (31-73) 73 % (31-73) Lymphocytes (%) (Auto) 12 % (24-48) 18 % (24-48) Monocytes (%) (Auto) 6 % (0-9) 5 % (0-9) Eosinophils (%) (Auto) 2 % (0-3) 3 % (0-3) Basophils (%) (Auto) 1 % (0-3) 1 % (0-3) Neutrophils # (Auto) 7.4 x10^3uL (1.8-7.7) 5.7 x10^3uL (1.8-7.7) Lymphocytes # (Auto) 1.1 x10^3/uL (1.0-4.8) 1.4 x10^3/uL (1.0-4.8) Monocytes # (Auto) 0.5 x10^3/uL (0.0-1.1) 0.4 x10^3/uL (0.0-1.1) Eosinophils # (Auto) 0.1 x10^3/uL (0.0-0.7) 0.2 x10^3/uL (0.0-0.7) Basophils # (Auto) 0.0 x10^3/uL (0.0-0.2) 0.0 x10^3/uL (0.0-0.2) Prothrombin Time 13.8 SEC (11.7-14.0) Prothromb Time International Ratio 1.1 (0.8-1.1) Activated Partial Thromboplast Time 29 SEC (24-38) Sodium Level 138 mmol/L (136-145) 138 mmol/L (136-145) Potassium Level 4.1 mmol/L (3.5-5.1) 3.9 mmol/L (3.5-5.1) Chloride Level 99 mmol/L (98-107) 101 mmol/L (98-107) Carbon Dioxide Level 27 mmol/L (21-32) 27 mmol/L (21-32) Anion Gap 12 (6-14) 10 (6-14) Blood Urea Nitrogen 24 mg/dL (8-26) 19 mg/dL (8-26) Creatinine 1.4 mg/dL (0.7-1.3) 1.2 mg/dL (0.7-1.3) Estimated GFR (Cockcroft-Gault) 50.7 60.6 BUN/Creatinine Ratio 17 (6-20) 16 (6-20) Glucose Level 189 mg/dL (70-99) 203 mg/dL (70-99) Calcium Level 9.9 mg/dL (8.5-10.1) 9.6 mg/dL (8.5-10.1) Magnesium Level 1.5 mg/dL (1.8-2.4) Total Bilirubin 0.5 mg/dL (0.2-1.0) 0.5 mg/dL (0.2-1.0) Aspartate Amino Transf (AST/SGOT) 28 U/L (15-37) 25 U/L (15-37) Alanine Aminotransferase (ALT/SGPT) 37 U/L (16-63) 33 U/L (16-63) Alkaline Phosphatase 95 U/L (46-116) 92 U/L (46-116) Creatine Kinase 30 U/L (39-308) Troponin I Quantitative < 0.017 ng/mL (0.000-0.055) KR-Fgf-D-Type Natriuretic Peptide 248 pg/mL (0-124) Total Protein 7.6 g/dL (6.4-8.2) 7.0 g/dL (6.4-8.2) Albumin 3.6 g/dL (3.4-5.0) 3.3 g/dL (3.4-5.0) Albumin/Globulin Ratio 0.9 (1.0-1.7) 0.9 (1.0-1.7) Lipase 239 U/L (73-393) 120 U/L (73-393) Urine Collection Type Void Urine Color Yellow Urine Clarity Clear Urine pH 5.5 Urine Specific [place] 1.020 Urine Protein Negative mg/dL (NEG-TRACE) Urine Glucose (UA) 100 mg/dL (NEG) Urine Ketones (Stick) Negative mg/dL (NEG) Urine Blood Negative (NEG) Urine Nitrite Negative (NEG) Urine Bilirubin Negative (NEG) Urine Urobilinogen Dipstick 1.0 mg/dL (0.2 mg/dL) Urine Leukocyte Esterase Negative (NEG) Urine RBC 0 /HPF (0-2) Urine WBC 11-20 /HPF (0-4) Urine Squamous Epithelial Cells Few /LPF Urine Bacteria Moderate /HPF (0-FEW) Urine Hyaline Casts Moderate /HPF Urine Mucus Mod /LPF Glucose (Fingerstick) 152 mg/dL (70-99) Vitamin B12 Level 332 pg/mL (247-911) Thyroid Stimulating Hormone (TSH) 2.062 uIU/mL (0.358-3.74) Test 07/13/18 07:59 Glucose (Fingerstick) 240 mg/dL (70-99) Allergies: Coded Allergies: Penicillins (Verified Allergy, Severe, hives, itching, swelling, 05/25/18) Medications: Current Medications Medications (Trade) Dose Ordered Sig/Jed Route PRN Reason Start Time Stop Time Status Last Admin Dose Admin Sodium Chloride 1,000 ml @ 1,000 mls/hr Q1H IV 07/12/18 13:47 07/12/18 14:46 DC 07/12/18 14:09 Potassium Chloride/Sodium Chloride 1,000 ml @ 80 mls/hr [id number] IV 07/12/18 20:00 07/13/18 09:04 Insulin Human Lispro (HumaLOG) 0-7 UNITS TIDWMEALS SQ 07/13/18 08:00 07/13/18 08:59 Insulin Glargine (Lantus) 20 units BID SQ 07/12/18 21:00 07/13/18 09:48 DC 07/13/18 09:00 Aspirin (Lorna Aspirin) 325 mg DAILY PO 07/13/18 09:00 07/13/18 08:44 Atorvastatin Calcium (Lipitor) 40 mg QHS PO 07/12/18 21:00 07/12/18 21:49 Carvedilol (Coreg) 6.25 mg BIDWMEALS PO 07/13/18 08:00 07/13/18 08:44 Clopidogrel Bisulfate (Plavix) 75 mg DAILYWBKFT PO 07/13/18 08:00 07/13/18 08:45 Lisinopril (Prinivil) 20 mg DAILY PO 07/13/18 09:00 07/13/18 08:45 Gabapentin (Neurontin) 300 mg QHS PO 07/12/18 21:00 07/12/18 21:49 Hydrochlorothiazide (Microzide) 12.5 mg DAILY PO 07/13/18 09:00 07/13/18 08:44 Pantoprazole Sodium (Protonix) 40 mg DAILYAC PO 07/13/18 07:30 07/13/18 08:44 Sertraline HCl (Zoloft) 100 mg QHS PO 07/12/18 21:00 07/12/18 21:50 Imaging: Imaging: Head and C-spine CT Impression: 1. No acute cervical spine fracture is identified. 2. There is mild spinal stenosis C5-6. There is mild neural foramina compromise as stated. There are large anterolateral osteophytes throughout the cervical spine, greatest degree of pseudoarticulation and fusion. Ribs, shoulder, CXR IMPRESSION: 1. No acute pulmonary or osseous finding. 2. Mild right glenohumeral and acromioclavicular osteoarthritis and degenerative or remote posttraumatic changes involving the right elbow. PE: GEN: NAD HEENT: Atraumatic, PERRL LUNGS: CTAB HEART: RRR ABD: NABS, S/ND/NT EXTREMITY: No edema SKIN: No rashes, no jaundice NEURO/PSYCH: A & O 3 A/P: A/P: Syncope Recurrent n/v -intermittently since 03/2018 -recent workup include EGD and GES per HPI -on PPI and anti-emetic CAD, DM, h/o CVA S/p cholecystectomy -- Unclear etiology - uncontrolled DM could contribute. Would continue PPI, await cardiology and neurology workup. Will review other GI recs w/ Dr. Schumacher. YADIEL PARKINSON Jul 13, 2018 11:55
--- NOTE | 2018-07-13 12:38 | CONS ---
DATE OF CONSULTATION: 07/13/2018 ATTENDING PHYSICIAN: Akhil Blackburn M.D. REASON FOR CONSULTATION: The patient was seen at the request of Dr. Blackburn for rehab evaluation. HISTORY OF PRESENT ILLNESS: This is a 68-year-old right-handed male with known coronary artery disease, diabetes mellitus type 2, hypercholesterolemia, hypertension, previous myocardial infarction, early onset Alzheimer dementia, cholecystectomy, left shoulder surgery, coronary artery bypass graft x 3 and KNOWN ALLERGIC TO PENICILLIN. The patient was admitted through the Emergency Room on 07/12/2018. He was seen at Dr. Blackburn's office for evaluation of nausea, vomiting and dizziness which started the day before yesterday. He felt dizzy and passed out and landed onto the hardwood floor on his right side, injuring his right elbow, shoulder and right side of the chest wall and also right knee. The patient complains of pain in his right shoulder and elbow area. He denies any neck or lower back pain. The patient had x-rays done, which failed to reveal any acute abnormality, except some arthritic changes in the AC joint and CT scan of the brain revealed focus of encephalomalacia, with cortical involvement of the left occipital lobe, likely due to sequelae of old infarct. CT scan of cervical spine revealed mild cervical spinal stenosis at C5-C6, mild neural foramina compromise also noted and large anterolateral osteophytes throughout the cervical spine, greatest degree of pseudoarticulation and fusion. The patient denies any neck pain with radiation to the extremities. He denies any trouble with his bowel or bladder control. PHYSICAL EXAMINATION: Today revealed a middle-aged male. He is alert; oriented to time, place, person and circumstance and follows commands appropriately. He is pleasant during the examination. He had no significant pain on range of motion of right shoulder or right elbow. He had tenderness to palpation over the right lateral humeral epicondylar area, just below abraded skin. The patient had also abraded skin over right knee. He had overall 5/5 grade muscle strength and deep tendon reflexes are decreased in the upper extremities and absent at both knees and ankles. No significant crepitus on range of motion of his knees or right shoulder and no pain on range of motion of his cervical spine. He seemed to have equal perception of touch and pinprick sensation bilaterally; and overall, he had 5/5 grade muscle strength in his upper and lower extremities and he is independent with bed mobility, transfers and walking with or without walker, without any loss of balance. His pulse rate is 62 per minute and regular. ASSESSMENT: A middle-aged male with diabetes mellitus and peripheral neuropathy with recent dizziness and fall and sprain of right elbow with skin abrasions, right elbow and right knee. The patient with known coronary artery disease, status post coronary artery bypass graft; hypertension; myocardial infarction and previous cerebrovascular accident without any residuals. RECOMMENDATIONS: To use physical modality to his right elbow area. Home with outpatient followup when no evidence of any significant bradyarrhythmia causing his dizzy episodes. Dr. Blackburn, I appreciate asking me to participate in the care of this interesting patient. I will be glad to follow him with you as needed for the rehabilitation. PARTHA PETTY MD DR: LORENA/andrae JOB#: [id number] / [id number]
--- NOTE | 2018-07-13 12:43 | PDOC2 ---
NEFTALY HOOD CLINICAL PROGRAM CONSULTANT 07/13/18 1243: CARDIAC CONSULT DATE OF CONSULT Date of Consult DATE: 07/13/18 TIME: 12:11 REASON FOR CONSULT Reason for Consult: 07/13/2018 REFERRING PHYSICIAN Referring Physician: [id number] SOURCE Source: Chart review, Patient HISTORY OF PRESENT ILLNESS HISTORY OF PRESENT ILLNESS This is a pleasant 68 yo male admitted for complains of passing out. He has long standing hx of dizzy spells but no outpt event monitor has been initiated. No known hx of arrhythmias. 2 weeks ago he felt some vertigo and was standing and was shuffling his legs unsteady and eventually fell on the bed but no passing out. He has been having dizzy spells and no associated palpitations. Last Thursday he had 2 episode where he felt warm and got lightheaded but no vertigo. Then the other day he was at the kitchen while his family members was at the basement. It was morning and he has not taken any of his medications. He bend over and trying to reach the dog food when he felt lightheaded, nauseated and warm and fell backwards but no apparent significant injury. He passed out at that time and fell on the floor and aacdg to his family he was probably unconscious for about 1 minute as they rushed upstairs since they heard a thump. He actually vomited when he woke up. No bowel or bladder incontinence and no noted symptoms of seizures. No confused state, vertigo, visual or auditory disturbances at that time. All this episode his checked his BP and it was ok and checked his BG and it was actually on the high side. Denies any chest pain, SOA. He has been complant with his medications. PAST MEDICAL HISTORY Cardiovascular: CAD, HTN, Syncope, Hyperlipidemia, Other (carotid artery disease) Pulmonary: No pertinent hx CENTRAL NERVOUS SYSTEM: CVA, Dementia GI: GERD Heme/Onc: No pertinent hx Hepatobiliary: Cholelithiasis Psych: Depression Musculoskeletal: Osteoarthritis Rheumatologic: No pertinent hx Infectious disease: No pertinent hx ENT: No pertinent hx Renal/: Chronic renal insuff Endocrine: Diabetes (2 insulin dependent) Dermatology: No pertinent hx PAST SURGICAL HISTORY Past Surgical History: Cholecystectomy, CABG (x3 with left internal mammary to the LAD, radial artery graft to OM, SVG to RCA), Other ([facility]; recent 05/2018 bilateral CEA) FAMILY HISTORY Family History: Heart Disease (father and mother) SOCIAL HISTORY Smoke: Quit ALCOHOL: none Drugs: None Lives: with Family CURRENT MEDICATIONS CURRENT MEDICATIONS Current Medications Medications (Trade) Dose Ordered Sig/Jed Route PRN Reason Start Time Stop Time Status Last Admin Dose Admin Sodium Chloride 1,000 ml @ 1,000 mls/hr Q1H IV 07/12/18 13:47 07/12/18 14:46 DC 07/12/18 14:09 Potassium Chloride/Sodium Chloride 1,000 ml @ 80 mls/hr [id number] IV 07/12/18 20:00 07/13/18 09:04 Insulin Human Lispro (HumaLOG) 0-7 UNITS TIDWMEALS SQ 07/13/18 08:00 07/13/18 08:59 Insulin Glargine (Lantus) 20 units BID SQ 07/12/18 21:00 07/13/18 09:48 DC 07/13/18 09:00 Aspirin (Lorna Aspirin) 325 mg DAILY PO 07/13/18 09:00 07/13/18 08:44 Atorvastatin Calcium (Lipitor) 40 mg QHS PO 07/12/18 21:00 07/12/18 21:49 Carvedilol (Coreg) 6.25 mg BIDWMEALS PO 07/13/18 08:00 07/13/18 08:44 Clopidogrel Bisulfate (Plavix) 75 mg DAILYWBKFT PO 07/13/18 08:00 07/13/18 08:45 Lisinopril (Prinivil) 20 mg DAILY PO 07/13/18 09:00 07/13/18 08:45 Gabapentin (Neurontin) 300 mg QHS PO 07/12/18 21:00 07/12/18 21:49 Hydrochlorothiazide (Microzide) 12.5 mg DAILY PO 07/13/18 09:00 07/13/18 08:44 Pantoprazole Sodium (Protonix) 40 mg DAILYAC PO 07/13/18 07:30 07/13/18 08:44 Sertraline HCl (Zoloft) 100 mg QHS PO 07/12/18 21:00 07/12/18 21:50 ALLERGIES ALLERGIES: Coded Allergies: Penicillins (Verified Allergy, Severe, hives, itching, swelling, 05/25/18) ROS Review of System 14 point ROS evaluated with pertinent positives noted per HPI PHYSICAL EXAM General: Alert, Oriented X3, Cooperative, No acute distress HEENT: Atraumatic, Mucous membr. moist/pink Lungs: Clear to auscultation, Normal air movement Heart: Regular rate (SB 50s), Normal S1, Normal S2, Other (2/6 systolic murmur to LLS border) Abdomen: Soft, No tenderness Extremities: No cyanosis Skin: No breakdown, No significant lesion Neuro: Normal speech, Sensation intact Psych/Mental Status: Mental status NL, Mood NL MUSCULOSKELETAL: Osteoarthritic changes both hands VITALS VITALS Vital Signs Date Time Temp Pulse Resp B/P (MAP) Pulse Ox O2 Delivery O2 Flow Rate FiO2 07/13/18 11:08 64 134/74 (94) 07/13/18 07:00 97.9 18 98 Room Air 97.9 LABS Lab: Laboratory Tests Test 07/12/18 13:35 07/12/18 17:30 07/12/18 20:56 07/13/18 04:10 White Blood Count 9.2 x10^3/uL (4.0-11.0) 7.8 x10^3/uL (4.0-11.0) Red Blood Count 4.56 x10^6/uL (4.30-5.70) 4.35 x10^6/uL (4.30-5.70) Hemoglobin 12.8 g/dL (13.0-17.5) 12.3 g/dL (13.0-17.5) Hematocrit 37.3 % (39.0-53.0) 35.5 % (39.0-53.0) Mean Corpuscular Volume 82 fL (79-100) 82 fL (79-100) Mean Corpuscular Hemoglobin 28 pg (25-35) 28 pg (25-35) Mean Corpuscular Hemoglobin Concent 34 g/dL (31-37) 35 g/dL (31-37) Red Cell Distribution Width 15.3 % (11.5-14.5) 15.6 % (11.5-14.5) Platelet Count 212 x10^3/uL (140-400) 191 x10^3/uL (140-400) Neutrophils (%) (Auto) 80 % (31-73) 73 % (31-73) Lymphocytes (%) (Auto) 12 % (24-48) 18 % (24-48) Monocytes (%) (Auto) 6 % (0-9) 5 % (0-9) Eosinophils (%) (Auto) 2 % (0-3) 3 % (0-3) Basophils (%) (Auto) 1 % (0-3) 1 % (0-3) Neutrophils # (Auto) 7.4 x10^3uL (1.8-7.7) 5.7 x10^3uL (1.8-7.7) Lymphocytes # (Auto) 1.1 x10^3/uL (1.0-4.8) 1.4 x10^3/uL (1.0-4.8) Monocytes # (Auto) 0.5 x10^3/uL (0.0-1.1) 0.4 x10^3/uL (0.0-1.1) Eosinophils # (Auto) 0.1 x10^3/uL (0.0-0.7) 0.2 x10^3/uL (0.0-0.7) Basophils # (Auto) 0.0 x10^3/uL (0.0-0.2) 0.0 x10^3/uL (0.0-0.2) Prothrombin Time 13.8 SEC (11.7-14.0) Prothromb Time International Ratio 1.1 (0.8-1.1) Activated Partial Thromboplast Time 29 SEC (24-38) Sodium Level 138 mmol/L (136-145) 138 mmol/L (136-145) Potassium Level 4.1 mmol/L (3.5-5.1) 3.9 mmol/L (3.5-5.1) Chloride Level 99 mmol/L (98-107) 101 mmol/L (98-107) Carbon Dioxide Level 27 mmol/L (21-32) 27 mmol/L (21-32) Anion Gap 12 (6-14) 10 (6-14) Blood Urea Nitrogen 24 mg/dL (8-26) 19 mg/dL (8-26) Creatinine 1.4 mg/dL (0.7-1.3) 1.2 mg/dL (0.7-1.3) Estimated GFR (Cockcroft-Gault) 50.7 60.6 BUN/Creatinine Ratio 17 (6-20) 16 (6-20) Glucose Level 189 mg/dL (70-99) 203 mg/dL (70-99) Calcium Level 9.9 mg/dL (8.5-10.1) 9.6 mg/dL (8.5-10.1) Magnesium Level 1.5 mg/dL (1.8-2.4) Total Bilirubin 0.5 mg/dL (0.2-1.0) 0.5 mg/dL (0.2-1.0) Aspartate Amino Transf (AST/SGOT) 28 U/L (15-37) 25 U/L (15-37) Alanine Aminotransferase (ALT/SGPT) 37 U/L (16-63) 33 U/L (16-63) Alkaline Phosphatase 95 U/L (46-116) 92 U/L (46-116) Creatine Kinase 30 U/L (39-308) Troponin I Quantitative < 0.017 ng/mL (0.000-0.055) ZB-Iir-S-Type Natriuretic Peptide 248 pg/mL (0-124) Total Protein 7.6 g/dL (6.4-8.2) 7.0 g/dL (6.4-8.2) Albumin 3.6 g/dL (3.4-5.0) 3.3 g/dL (3.4-5.0) Albumin/Globulin Ratio 0.9 (1.0-1.7) 0.9 (1.0-1.7) Lipase 239 U/L (73-393) 120 U/L (73-393) Urine Collection Type Void Urine Color Yellow Urine Clarity Clear Urine pH 5.5 Urine Specific [place] 1.020 Urine Protein Negative mg/dL (NEG-TRACE) Urine Glucose (UA) 100 mg/dL (NEG) Urine Ketones (Stick) Negative mg/dL (NEG) Urine Blood Negative (NEG) Urine Nitrite Negative (NEG) Urine Bilirubin Negative (NEG) Urine Urobilinogen Dipstick 1.0 mg/dL (0.2 mg/dL) Urine Leukocyte Esterase Negative (NEG) Urine RBC 0 /HPF (0-2) Urine WBC 11-20 /HPF (0-4) Urine Squamous Epithelial Cells Few /LPF Urine Bacteria Moderate /HPF (0-FEW) Urine Hyaline Casts Moderate /HPF Urine Mucus Mod /LPF Glucose (Fingerstick) 152 mg/dL (70-99) Vitamin B12 Level 332 pg/mL (247-911) Thyroid Stimulating Hormone (TSH) 2.062 uIU/mL (0.358-3.74) Test 07/13/18 07:59 Glucose (Fingerstick) 240 mg/dL (70-99) ECHOCARDIOGRAM ECHOCARDIOGRAM <Conclusion> Technically difficult study. The left ventricle is normal size. The left ventricular systolic function is normal and the ejection fraction is within normal range. LV ejection fraction is 55-60%. There is no significant aortic valvular stenosis. Doppler and Color Flow revealed no significant aortic regurgitation. Doppler and Color Flow revealed trace mitral valve regurgitation. Doppler and Color Flow revealed mild tricuspid regurgitation. There is no evidence of significant pericardial effusion. DATE: 10/01/17 1204 STRESS TEST STRESS TEST Conclusion 1. No evidence of EKG changes with stress testing. 2. Normal perfusion at stress/rest. 3. Low risk study. 4. EF > 60%. DATE: 10/01/17 1538 HEART CATH HEART CATH Conclusion 1. Severe three-vessel coronary artery disease 2. Normal left ventricle systolic function with ejection fraction estimated at 60% 3. No significant mitral regurgitation or aortic stenosis Recommendations Cardiothoracic surgery consult for possible coronary artery bypass surgery DATE: 02/16/15 1126 ASSESSMENT/PLAN ASSESSMENT/PLAN 1. Syncope with nontraumatic fall: negative for orthostasis. suspect reflex syncope with component of vasovagal and potentially CSH exacerbated with dehydration 2. Persistent multiple presyncopal episodes 3. Asymptomatic SB: no pauses, lowest upper 40s. EKG SB with chronic RBBB 4. Dehydration: better after IVF. 5. CAD: past CABG, clinically stable. 6. DM2: no noted hypoglycemic reaction. Insulin dependent 7. Hx of CVA/carotid artery disease with recent bilateral CEA 8. CKD2 9. Hypomagnesemia: replaced Recommendations 1. TTE, TSH, Mg 2. Neurology following. Will consider for tilt table and if inconclusive then outpt event monitor. 3. Continue with secondary prevention measures. Will lower coreg dose and increase ACEi 4. Will need better BG control, defer to PCP. GABBIE JONES MD 07/13/18 1720: CARDIAC CONSULT ASSESSMENT/PLAN ASSESSMENT/PLAN Patient seen and examined. 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 Recurrent syncope of uncertain etiology Telemetry did not show any significant arrhythmias 2-D echo showed normal LV function without any significant structural abnormalities Carotid massage did not elicit carotid hypersensitivity syndrome CAD status clinically stable Plan for event monitor as an outpatient Thank you for your consultation NEFTALY HOOD APRN Jul 13, 2018 12:43 GABBIE JONES MD Jul 13, 2018 17:20
[2018-07-13] MEDS ORDERED: PERFLUTREN PROTEIN-A MICROSPHR 0.22 MG/ML 3 ML VIAL. IV ONE (15:37)
[2018-07-13] MEDS ORDERED: PERFLUTREN PROTEIN-A MICROSPHR 0.22 MG/ML 3 ML VIAL. IV PRN (15:45)
--- NOTE | 2018-07-13 16:19 | CARD ---
MR#: [id number] Date of Study: 07/13/2018 Ordering Physician: NEFTALY HOOD, Referring Physician: MARY KATE RYAN Tech: Claire Ocampo RDCS APPROVED REPORT EXAM: Two-dimensional and M-mode echocardiogram with Doppler and color Doppler. Other Information Quality : Technically LimitedHR: 55bpm Rhythm : NSR INDICATION Syncope Echo Enhancing Agent Indication: Endocardial border delineation Agent/Amount Used: Optison 2mL Surgery/Intervention CABG: RISK FACTORS Hypertension Obesity 2D DIMENSIONS IVSd1.1 (0.7-1.1cm)LVDd6.3 (3.9-5.9cm) LVOT Diameter2.1 (1.8-2.4cm)PWd1.1 (0.7-1.1cm) LVDs4.4 (2.5-4.0cm)FS (%) 29.4 % SV109.5 mlLVEF(%)55.3 (>50%) M-Mode DIMENSIONS Left Atrium(MM)3.91 (2.5-4.0cm)IVSd0.90 (0.7-1.1cm) Aortic Root3.17 (2.2-3.7cm)LVDd6.08 (4.0-5.6cm) PWd0.87 (0.7-1.1cm)IVSs1.25 cm FS (%) 27 %LVDs4.41 (2.0-3.8cm) ESV(Teich)88.1 mlPWs1.46 cm LVEF(%)52 (>50%) Aortic Valve AoV Peak Grzegorz.147.4cm/sAoV VTI32.4cm AO Peak GR.8.7mmHgLVOT Peak Grzegorz.89.8cm/s AO Mean GR.5mmHgAVA (VMAX)2.12cm2 FABIAN (VTI)2.30cm2 Mitral Valve MV E Mzgjwvlo72.0cm/sMV E Peak Gr.2mmHg MV DECEL [id number] A Bflrfqni80.7cm/s MV E Mean Gr.1mmHgE/A Ratio1.3 MV A [id number] Pulmonary Valve PV Peak Fugigsuw327.4cm/s Tricuspid Valve TR P. Wtcmetjm168xm/sRAP [id number] TR Peak Gr.32xfRvRNDW93npVq Pulmonary Vein S1 Kydkweel76.2cm/sD2 Ysyizljj59.4cm/s PVa [id number] LEFT VENTRICLE The Left Ventricle is mildly dilated. There is mild concentric left ventricular hypertrophy. The left ventricular systolic function is normal The Ejection Fraction is 55-60%. There is normal LV segmenta l wall motion. The left ventricular diastolic function and filling is normal for age. RIGHT VENTRICLE The right ventricle is not well visualized. Cannot assess right ventricular systolic function. ATRIA The left atrium size is normal. The right atrium is not well visualized. The interatrial septum is in tact with no evidence for an atrial septal defect or patent foramen ovale as noted on 2-D or Doppler imaging. AORTIC VALVE The left coronary cusp is calcified but Aortic valve opens well. Doppler and Color Flow revealed no s ignificant aortic regurgitation. There is no significant aortic valvular stenosis. MITRAL VALVE The mitral valve is normal in structure and function. There is no evidence of mitral valve prolapse. There is no mitral valve stenosis. Doppler and Color Flow revealed no mitral valve regurgitation note d. TRICUSPID VALVE The tricuspid valve is normal in structure and function. Doppler and Color Flow revealed mild tricusp id regurgitation. The PA pressure was estimated at 18 mmHg. There is no tricuspid valve prolapse or v egetation. There is no tricuspid valve stenosis. PULMONIC VALVE The pulmonary valve is normal in structure and function. Doppler and Color Flow revealed no pulmonic valvular regurgitation. There is no pulmonic valvular stenosis. GREAT VESSELS The aortic root is normal in size. The ascending aorta is Mildly dilated. PERICARDIAL EFFUSION There is no evidence of significant pericardial effusion. Critical Notification Critical Value: No <Conclusion> The left ventricular systolic function is normal The Ejection Fraction is 55-60%. There is normal LV segmental wall motion. Doppler and Color Flow revealed mild tricuspid regurgitation. The PA pressure was estimated at 18 mmHg. There is no evidence of significant pericardial effusion. Signed by : Lefty Robison, Electronically Approved : 07/13/2018 16:18:06
[2018-07-13] MEDS: CARVEDILOL 3.125 MG TABLET. PO SCH (17:22)
--- NOTE | 2018-07-13 17:36 | PDOC2 ---
NEUROLOGY CONSULT Date of Admission Date of Admission DATE: 07/13/18 TIME: 17:24 Reason for Consult Reason for Consult: Chronic intermittent dizziness, multifactorial, including vascular etiology. Syncopal spells. Falls. UTI. Nausea, vomiting and diarrhea. 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 Carotid A stenosis s/p endarterectomy. 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 Hyperglycemia. DM CAD [place] HTN CKD Degenerative spine and joint diseases. Obesity. RECOMMENDATIONS/PLAN: Continue Plavix 75 mg daily. Continue ASA 325 mg daily. Continue Lipitor 40 mg HS. FU with Vascular Surgery. Treat medical diseases. Discussed with his family at bedside. HISTORY OF THE PRESENT ILLNESS: This is a 68-y-old male patient with above medical diseases and chronic intermittent symptoms of dizziness and syncopal like episodes. He was admitted thsi time due to nausea, vomiting and diarrhea and he fell on the floor on his right side and injured his right shoulder and elbow to come to the ER of [facility]. Past Medical History Cardiovascular: CAD, HTN, [place], Hyperlipidemia CENTRAL NERVOUS SYSTEM: CVA, Dementia GI: Other (umbilical hernia) Heme/Onc: Anemia NOS Renal/: Chronic renal insuff (CKD 2) Endocrine: Diabetes Past Surgical History Cholecystectomy, CABG, Other (cardiac catheterization) Family History CAD Social History , quit smoking 16 years ago, rare alcohol, retired ALLERGY: Reviewed. MEDICATIONS: Refer to [facility] REVIEW OF SYSTEMS: Constitutional: obese. Head: No traumatic brain or head injury. Skin: No edema, or rash. Ear: No infection. Eyes: No vision loss, or diplopia. Nose: No bleeding or purulent discharges. Hearing: No hearing decrease. Neck: No injury. Cardiac: KS, CAD, HTN, HLD Pulmonary: No COPD.. GI: No GI Ulcer, GI bleeding Urinary/genital:UTI. Endocrine: Diabetes Mellitus. Skeletomuscular: No muscular atrophy, deformity. Neurological: see HP. Psychiatric: Denies drug use/abuse. Otherwise, not [id number] review of systems. PHYSICAL EXAMINATION: General appearance in subacute distress. HEENT: Normocephalic and nontraumatic. Eyes, nose, ears, and throat are unremarkable. Neck is supple. No lymphadenopathy. No Crepitus. Cardiovascular: S1, S2, regular rate and rhythm. Pulmonary: Clear to auscultation bilaterally. Abdomen: Bowel sounds are positive. Abdomen is soft, nontender, and nondistended. Extremities: No rash, lesions, or edema. No restriction of range of motion NEUROLOGICAL EXAMINATION: Alert. Oriented to time, place and person. PERRL. EOMI. CN: no focal findings. Muscle tone: within normal. Muscle strength: 5 DTR: 1-2 Plantar reflex: Neutral response bilaterally Gait: not examined in bed. Sensory exam: no abnormal findings. No obvious cerebellar signs elicited. F-T-N test fine. Current Medications Current Medications Current Medications Sodium Chloride 1,000 ml @ 1,000 mls/hr Q1H IV Last administered on 07/12/18at 14:09; Start 07/12/18 at 13:47; Stop 07/12/18 at 14:46; Status DC Ondansetron HCl (Zofran) 4 mg PRN Q8HRS PRN IV NAUSEA/VOMITING; Start 07/12/18 at 16:45; Stop 07/13/18 at 16:44; Status DC Info (Do NOT chart on this placeholder) 0.5 each 1X ONCE MC ; Start 07/12/18 at 19:00; Stop 07/12/18 at 19:01; Status UNV Influenza Virus Vaccine (Afluria Trivalent [id number] Syringe) 0.5 ml ONCE ONCE VAX IM ; Start 07/12/18 at 21:00; Stop 07/12/18 at 21:01; Status DC Potassium Chloride/Sodium Chloride 1,000 ml @ 80 mls/hr [id number] IV Last administered on 07/13/18at 09:04; Start 07/12/18 at 20:00 Insulin Human Lispro (HumaLOG) 0-7 UNITS TIDWMEALS SQ Last administered on 07/13at 12:22; Start 07/13/18 at 08:00 Dextrose (Dextrose 50%-Water Syringe) 12.5 gm PRN Q15MIN PRN IV SEE COMMENTS; Start 07/12/18 at 19:30 Acetaminophen (Tylenol) 650 mg PRN Q6HRS PRN PO MILD PAIN / TEMP; Start at 19:30 Insulin Glargine (Lantus) 20 units BID SQ Last administered on 07/13/18at 09:00 ; Start 07/12/18 at 21:00; Stop 07/13/18 at 09:48; Status DC Aspirin (Lorna Aspirin) 325 mg DAILY PO Last administered on 07/13/18 08:44; Start 07/13/18 at 09:00 Atorvastatin Calcium (Lipitor) 40 mg QHS PO Last administered on 07/12/18at 21: 49; Start 07/12/18 at 21:00 Carvedilol (Coreg) 6.25 mg BIDWMEALS PO Last administered on 07/13/18at 08:44; Start 07/13/18 at 08:00; Stop 07/13/18 at 13:22; Status DC Clopidogrel Bisulfate (Plavix) 75 mg DAILYWBKFT PO Last administered on 08:45; Start 07/13/18 at 08:00 Lisinopril (Prinivil) 20 mg DAILY PO Last administered on 07/13/18 08:45; Start 07/13/18 at 09:00; Stop 07/13/18 at 13:22; Status DC Prochlorperazine Maleate (Compazine) 10 mg PRN QID PRN PO NAUSEA/VOMITING 1ST CHOICE; Start 07/12/18 at 20:30 Gabapentin (Neurontin) 300 mg QHS PO Last administered on 07/12/18 21:49; Start 07/12/18 at 21:00 Hydrochlorothiazide (Microzide) 12.5 mg DAILY PO Last administered on 08:44; Start 07/13/18 at 09:00 Pantoprazole Sodium (Protonix) 40 mg DAILYAC PO Last administered on 07/13/18at 08:44; Start 07/13/18 at 07:30 Sertraline HCl (Zoloft) 100 mg QHS PO Last administered on 07/12/18at 21:50; Start 07/12/18 at 21:00 Insulin Glargine (Lantus) 60 units BID SQ ; Start 07/13/18 at 21:00 Insulin Human Lispro (HumaLOG) 10 units TIDWMEALS SQ Last administered on at 12:23; Start 07/13/18 at 12:00 Magnesium Sulfate 50 ml @ 25 mls/hr 1X ONCE IV Last administered on 07/13/18at 11:23; Start 07/13/18 at 11:00; Stop 07/13/18 at 12:59; Status DC Magnesium Sulfate 50 ml @ 25 mls/hr 1X ONCE IV ; Start 07/13/18 at 13:30; Stop 07/13/18 at 14:41; Status DC Carvedilol (Coreg) 3.125 mg BIDWMEALS PO ; Start 07/13/18 at 17:00 Lisinopril (Prinivil) 40 mg DAILY PO ; Start 07/14/18 at 09:00 Perflutren Protein Type A Microsphe (Optison) 0.66 mg STK-MED ONCE IV ; Start at 15:37; Stop 07/13/18 at 15:38; Status DC Perflutren Protein Type A Microsphe (Optison) 0.66 mg PRN 1X PRN IV SEE COMMENTS Last administered on 07/13/18at 15:42; Start 07/13/18 at 15:45; Stop at 15:44 Active Scripts Active Plavix (Clopidogrel Bisulfate) 75 Mg Tablet 75 Mg PO DAILYWBKFT Reported Prochlorperazine Maleate 10 Mg Tablet 1 Tab PO PRN QID PRN Protonix (Pantoprazole Sodium) 20 Mg Tablet.dr 40 Mg PO DAILY Novolog (Insulin Aspart) 100 Unit/1 Ml Cartridge 25 Unit SQ TID Levemir (Insulin Detemir) 100 Unit/1 Ml Vial 45 Unit SQ BID Zoloft (Sertraline Hcl) 100 Mg Tablet 1 Tab PO HS Hydrochlorothiazide Tablet (Hydrochlorothiazide) 12.5 Mg Tablet 1 Tab PO DAILY Gabapentin 300 Mg Capsule 300 Mg PO HS Coreg (Carvedilol) 6.25 Mg Tablet 1 Tab PO BID Lipitor (Atorvastatin Calcium) 40 Mg Tablet 1 Tab PO QHS Lisinopril 20 Mg Tablet 20 Mg PO DAILY Aspirin 325 Mg Tablet 1 Tab PO DAILY Allergies Allergies: Allergies Coded Allergies Type Severity Reaction Last Updated Verified Penicillins Allergy Severe hives, itching, swelling 05/25/18 Yes ROS Review of System The patient denies any associated fevers, chills, headache, ear pain, rhinorrhea , sore throat, stiff neck, productive cough, chest pain, shortness of breath, back or flank pain, abdominal pain, nausea, vomiting, diarrhea, constipation, dysuria, rash, numbness, weakness, tingling, incontinence, difficulty ambulating, or diaphoresis. Physical Exam Physical Exam General: Well developed, well nourished, no acute distress, well appearing HEENT: Pupils equally round and reactive to light, EOMI, no discharge, normal conjunctiva Neck: Supple, no nuchal rigidity, no JVD, trachea midline, no tenderness Cardiac: RRR, no murmurs, no gallops, no rubs Chest/Lungs: CTAB, no wheeze, no rhonchi, no crackles Abdomen: soft, non-distended, no guarding, no peritoneal signs, non-tender Back: No tenderness Extremities: no edema, pulses intact, non-tender,capillary refill <3 sec bilateral upper and lower extremities, Neuro: Alert and oriented x 4, no focal deficits, normal speech Vitals Vitals: Vital Signs Date Time Temp Pulse Resp B/P (MAP) Pulse Ox O2 Delivery O2 Flow Rate FiO2 07/13/18 15:00 98.1 53 18 156/72 (100) 98 Room Air 98.1 Labs Labs Laboratory Tests Test 07/12/18 13:35 07/12/18 17:30 07/12/18 20:56 07/13/18 04:10 White Blood Count 9.2 x10^3/uL (4.0-11.0) 7.8 x10^3/uL (4.0-11.0) Red Blood Count 4.56 x10^6/uL (4.30-5.70) 4.35 x10^6/uL (4.30-5.70) Hemoglobin 12.8 g/dL (13.0-17.5) 12.3 g/dL (13.0-17.5) Hematocrit 37.3 % (39.0-53.0) 35.5 % (39.0-53.0) Mean Corpuscular Volume 82 fL (79-100) 82 fL (79-100) Mean Corpuscular Hemoglobin 28 pg (25-35) 28 pg (25-35) Mean Corpuscular Hemoglobin Concent 34 g/dL (31-37) 35 g/dL (31-37) Red Cell Distribution Width 15.3 % (11.5-14.5) 15.6 % (11.5-14.5) Platelet Count 212 x10^3/uL (140-400) 191 x10^3/uL (140-400) Neutrophils (%) (Auto) 80 % (31-73) 73 % (31-73) Lymphocytes (%) (Auto) 12 % (24-48) 18 % (24-48) Monocytes (%) (Auto) 6 % (0-9) 5 % (0-9) Eosinophils (%) (Auto) 2 % (0-3) 3 % (0-3) Basophils (%) (Auto) 1 % (0-3) 1 % (0-3) Neutrophils # (Auto) 7.4 x10^3uL (1.8-7.7) 5.7 x10^3uL (1.8-7.7) Lymphocytes # (Auto) 1.1 x10^3/uL (1.0-4.8) 1.4 x10^3/uL (1.0-4.8) Monocytes # (Auto) 0.5 x10^3/uL (0.0-1.1) 0.4 x10^3/uL (0.0-1.1) Eosinophils # (Auto) 0.1 x10^3/uL (0.0-0.7) 0.2 x10^3/uL (0.0-0.7) Basophils # (Auto) 0.0 x10^3/uL (0.0-0.2) 0.0 x10^3/uL (0.0-0.2) Prothrombin Time 13.8 SEC (11.7-14.0) Prothromb Time International Ratio 1.1 (0.8-1.1) Activated Partial Thromboplast Time 29 SEC (24-38) Sodium Level 138 mmol/L (136-145) 138 mmol/L (136-145) Potassium Level 4.1 mmol/L (3.5-5.1) 3.9 mmol/L (3.5-5.1) Chloride Level 99 mmol/L (98-107) 101 mmol/L (98-107) Carbon Dioxide Level 27 mmol/L (21-32) 27 mmol/L (21-32) Anion Gap 12 (6-14) 10 (6-14) Blood Urea Nitrogen 24 mg/dL (8-26) 19 mg/dL (8-26) Creatinine 1.4 mg/dL (0.7-1.3) 1.2 mg/dL (0.7-1.3) Estimated GFR (Cockcroft-Gault) 50.7 60.6 BUN/Creatinine Ratio 17 (6-20) 16 (6-20) Glucose Level 189 mg/dL (70-99) 203 mg/dL (70-99) Calcium Level 9.9 mg/dL (8.5-10.1) 9.6 mg/dL (8.5-10.1) Magnesium Level 1.5 mg/dL (1.8-2.4) 1.5 mg/dL (1.8-2.4) Total Bilirubin 0.5 mg/dL (0.2-1.0) 0.5 mg/dL (0.2-1.0) Aspartate Amino Transf (AST/SGOT) 28 U/L (15-37) 25 U/L (15-37) Alanine Aminotransferase (ALT/SGPT) 37 U/L (16-63) 33 U/L (16-63) Alkaline Phosphatase 95 U/L (46-116) 92 U/L (46-116) Creatine Kinase 30 U/L (39-308) Troponin I Quantitative < 0.017 ng/mL (0.000-0.055) [id number]-Type Natriuretic Peptide 248 pg/mL (0-124) Total Protein 7.6 g/dL (6.4-8.2) 7.0 g/dL (6.4-8.2) Albumin 3.6 g/dL (3.4-5.0) 3.3 g/dL (3.4-5.0) Albumin/Globulin Ratio 0.9 (1.0-1.7) 0.9 (1.0-1.7) Lipase 239 U/L (73-393) 120 U/L (73-393) Urine Collection Type Void Urine Color Yellow Urine Clarity Clear Urine pH 5.5 Urine Specific [place] 1.020 Urine Protein Negative mg/dL (NEG-TRACE) Urine Glucose (UA) 100 mg/dL (NEG) Urine Ketones (Stick) Negative mg/dL (NEG) Urine Blood Negative (NEG) Urine Nitrite Negative (NEG) Urine Bilirubin Negative (NEG) Urine Urobilinogen Dipstick 1.0 mg/dL (0.2 mg/dL) Urine Leukocyte Esterase Negative (NEG) Urine RBC 0 /HPF (0-2) Urine WBC 11-20 /HPF (0-4) Urine Squamous Epithelial Cells Few /LPF Urine Bacteria Moderate /HPF (0-FEW) Urine Hyaline Casts Moderate /HPF Urine Mucus Mod /LPF Glucose (Fingerstick) 152 mg/dL (70-99) Vitamin B12 Level 332 pg/mL (247-911) Thyroid Stimulating Hormone (TSH) 2.062 uIU/mL (0.358-3.74) Test 07/13/18 07:59 07/13/18 12:09 07/13/18 13:15 07/13/18 16:59 Glucose (Fingerstick) 240 mg/dL (70-99) 187 mg/dL (70-99) 173 mg/dL (70-99) 153 mg/dL (70-99) Laboratory Tests Test 07/12/18 17:30 07/12/18 20:56 07/13/18 04:10 07/13/18 07:59 Urine Collection Type Void Urine Color Yellow Urine Clarity Clear Urine pH 5.5 Urine Specific [place] 1.020 Urine Protein Negative mg/dL (NEG-TRACE) Urine Glucose (UA) 100 mg/dL (NEG) Urine Ketones (Stick) Negative mg/dL (NEG) Urine Blood Negative (NEG) Urine Nitrite Negative (NEG) Urine Bilirubin Negative (NEG) Urine Urobilinogen Dipstick 1.0 mg/dL (0.2 mg/dL) Urine Leukocyte Esterase Negative (NEG) Urine RBC 0 /HPF (0-2) Urine WBC 11-20 /HPF (0-4) Urine Squamous Epithelial Cells Few /LPF Urine Bacteria Moderate /HPF (0-FEW) Urine Hyaline Casts Moderate /HPF Urine Mucus Mod /LPF Glucose (Fingerstick) 152 mg/dL (70-99) 240 mg/dL (70-99) White Blood Count 7.8 x10^3/uL (4.0-11.0) Red Blood Count 4.35 x10^6/uL (4.30-5.70) Hemoglobin 12.3 g/dL (13.0-17.5) Hematocrit 35.5 % (39.0-53.0) Mean Corpuscular Volume 82 fL (79-100) Mean Corpuscular Hemoglobin 28 pg (25-35) Mean Corpuscular Hemoglobin Concent 35 g/dL (31-37) Red Cell Distribution Width 15.6 % (11.5-14.5) Platelet Count 191 x10^3/uL (140-400) Neutrophils (%) (Auto) 73 % (31-73) Lymphocytes (%) (Auto) 18 % (24-48) Monocytes (%) (Auto) 5 % (0-9) Eosinophils (%) (Auto) 3 % (0-3) Basophils (%) (Auto) 1 % (0-3) Neutrophils # (Auto) 5.7 x10^3uL (1.8-7.7) Lymphocytes # (Auto) 1.4 x10^3/uL (1.0-4.8) Monocytes # (Auto) 0.4 x10^3/uL (0.0-1.1) Eosinophils # (Auto) 0.2 x10^3/uL (0.0-0.7) Basophils # (Auto) 0.0 x10^3/uL (0.0-0.2) Sodium Level 138 mmol/L (136-145) Potassium Level 3.9 mmol/L (3.5-5.1) Chloride Level 101 mmol/L (98-107) Carbon Dioxide Level 27 mmol/L (21-32) Anion Gap 10 (6-14) Blood Urea Nitrogen 19 mg/dL (8-26) Creatinine 1.2 mg/dL (0.7-1.3) Estimated GFR (Cockcroft-Gault) 60.6 BUN/Creatinine Ratio 16 (6-20) Glucose Level 203 mg/dL (70-99) Calcium Level 9.6 mg/dL (8.5-10.1) Magnesium Level 1.5 mg/dL (1.8-2.4) Total Bilirubin 0.5 mg/dL (0.2-1.0) Aspartate Amino Transf (AST/SGOT) 25 U/L (15-37) Alanine Aminotransferase (ALT/SGPT) 33 U/L (16-63) Alkaline Phosphatase 92 U/L (46-116) Total Protein 7.0 g/dL (6.4-8.2) Albumin 3.3 g/dL (3.4-5.0) Albumin/Globulin Ratio 0.9 (1.0-1.7) Lipase 120 U/L (73-393) Vitamin B12 Level 332 pg/mL (247-911) Thyroid Stimulating Hormone (TSH) 2.062 uIU/mL (0.358-3.74) Test 07/13/18 12:09 07/13/18 13:15 07/13/18 16:59 Glucose (Fingerstick) 187 mg/dL (70-99) 173 mg/dL (70-99) 153 mg/dL (70-99) TRUONG MORGAN MD Jul 13, 2018 17:36
[2018-07-13] MEDS: SERTRALINE 50 MG TABLET. PO SCH (20:28)
[2018-07-13] MEDS: ATORVASTATIN CALCIUM 40 MG TABLET. PO SCH (20:28)
[2018-07-13] MEDS: GABAPENTIN 300 MG CAPSULE. PO SCH (20:28)
[2018-07-13] MEDS ORDERED: INSULIN LISPRO 300 UNITS/3 ML INSULN.PEN. SQ ONE (21:00)
[2018-07-14] VITALS (7 sets, daily range): BP systolic 125–180; BP diastolic 55–91
[2018-07-14 06:54] LABS: BASO # 0.1 x10^3/uL (0.0-0.2); BASO % 1 % (0-3); EOS # 0.2 x10^3/uL (0.0-0.7); EOS % 3 % (0-3); HEMATOCRIT 35.4 % (39.0-53.0); HEMOGLOBIN 12.2 g/dL (13.0-17.5); LYMPH % 14 % (24-48); MEAN CORPUSCULAR HEMOGLOBIN 28 pg (25-35); MEAN CORPUSCULAR HGB CONC 35 g/dL (31-37); MEAN CORPUSCULAR VOLUME 82 fL (79-100); MONO # 0.3 x10^3/uL (0.0-1.1); MONO % 5 % (0-9); NEUT # 5.5 x10^3uL (1.8-7.7); NEUT % 77 % (31-73); PLATELET COUNT 190 x10^3/uL (140-400); RED BLOOD COUNT 4.31 x10^6/uL (4.30-5.70); RED CELL DISTRIBUTION WIDTH 15.7 % (11.5-14.5); WHITE BLOOD COUNT 7.1 x10^3/uL (4.0-11.0)
[2018-07-14 07:23] LABS: ALBUMIN 3.2 g/dL (3.4-5.0); ALBUMIN/GLOBULIN RATIO 0.9 (1.0-1.7); CALCIUM 9.3 mg/dL (8.5-10.1); CREATININE 1.1 mg/dL (0.7-1.3); MAGNESIUM 1.8 mg/dL (1.8-2.4); POTASSIUM 3.8 mmol/L (3.5-5.1); TOTAL BILIRUBIN 0.4 mg/dL (0.2-1.0); TOTAL PROTEIN 6.9 g/dL (6.4-8.2)
[2018-07-14] MEDS ORDERED: LISINOPRIL 20 MG TABLET PO SCH (09:00)
[2018-07-14] MEDS: CARVEDILOL 3.125 MG TABLET. PO SCH ×2 (09:18→17:50)
[2018-07-14] MEDS: CLOPIDOGREL BISULFATE 75 MG TABLET PO SCH (09:18)
[2018-07-14] MEDS: ASPIRIN 325 MG TABLET PO SCH (09:19)
[2018-07-14] MEDS: PANTOPRAZOLE 40 MG TABLET.DR. PO SCH (09:19)
[2018-07-14] MEDS: hydroCHLOROthiazide 12.5 MG CAPSULE PO SCH (09:19)
[2018-07-14] MEDS: INSULIN LISPRO 300 UNITS/3 ML INSULN.PEN. SQ SCH ×6 (09:26→17:00)
[2018-07-14] MEDS: INSULIN GLARGINE 300 UNITS/3 ML INSULN.PEN. SQ SCH (09:27)
--- NOTE | 2018-07-14 10:00 | PDOC ---
PROGRESS NOTES Subjective Subjective No new complaints. Objective Objective Vital Signs Date Time Temp Pulse Resp B/P (MAP) Pulse Ox O2 Delivery O2 Flow Rate FiO2 07/14/18 09:19 61 177/88 07/14/18 07:00 98.3 18 97 Room Air 98.3 Physical Exam Physical Exam He continues with tenderness to palpation over right lateral humeral epicondylar area and remains independent with his mobility and self care. Assessment Assessment Problems Medical Problems: (1) Contusion of rib on right side Status: Acute (2) Contusion of right elbow Status: Acute (3) Nausea & vomiting Status: Acute (4) Syncope and collapse Status: Acute Plan Plan of Care Agree with plans for home when medically stable. Comment Review of Relevant I have reviewed the following items daniel (where applicable) has been applied. Labs Laboratory Tests Test 07/12/18 13:35 07/12/18 17:30 07/12/18 20:56 07/13/18 04:10 White Blood Count 9.2 x10^3/uL (4.0-11.0) 7.8 x10^3/uL (4.0-11.0) Red Blood Count 4.56 x10^6/uL (4.30-5.70) 4.35 x10^6/uL (4.30-5.70) Hemoglobin 12.8 g/dL (13.0-17.5) 12.3 g/dL (13.0-17.5) Hematocrit 37.3 % (39.0-53.0) 35.5 % (39.0-53.0) Mean Corpuscular Volume 82 fL (79-100) 82 fL (79-100) Mean Corpuscular Hemoglobin 28 pg (25-35) 28 pg (25-35) Mean Corpuscular Hemoglobin Concent 34 g/dL (31-37) 35 g/dL (31-37) Red Cell Distribution Width 15.3 % (11.5-14.5) 15.6 % (11.5-14.5) Platelet Count 212 x10^3/uL (140-400) 191 x10^3/uL (140-400) Neutrophils (%) (Auto) 80 % (31-73) 73 % (31-73) Lymphocytes (%) (Auto) 12 % (24-48) 18 % (24-48) Monocytes (%) (Auto) 6 % (0-9) 5 % (0-9) Eosinophils (%) (Auto) 2 % (0-3) 3 % (0-3) Basophils (%) (Auto) 1 % (0-3) 1 % (0-3) Neutrophils # (Auto) 7.4 x10^3uL (1.8-7.7) 5.7 x10^3uL (1.8-7.7) Lymphocytes # (Auto) 1.1 x10^3/uL (1.0-4.8) 1.4 x10^3/uL (1.0-4.8) Monocytes # (Auto) 0.5 x10^3/uL (0.0-1.1) 0.4 x10^3/uL (0.0-1.1) Eosinophils # (Auto) 0.1 x10^3/uL (0.0-0.7) 0.2 x10^3/uL (0.0-0.7) Basophils # (Auto) 0.0 x10^3/uL (0.0-0.2) 0.0 x10^3/uL (0.0-0.2) Prothrombin Time 13.8 SEC (11.7-14.0) Prothromb Time International Ratio 1.1 (0.8-1.1) Activated Partial Thromboplast Time 29 SEC (24-38) Sodium Level 138 mmol/L (136-145) 138 mmol/L (136-145) Potassium Level 4.1 mmol/L (3.5-5.1) 3.9 mmol/L (3.5-5.1) Chloride Level 99 mmol/L (98-107) 101 mmol/L (98-107) Carbon Dioxide Level 27 mmol/L (21-32) 27 mmol/L (21-32) Anion Gap 12 (6-14) 10 (6-14) Blood Urea Nitrogen 24 mg/dL (8-26) 19 mg/dL (8-26) Creatinine 1.4 mg/dL (0.7-1.3) 1.2 mg/dL (0.7-1.3) Estimated GFR (Cockcroft-Gault) 50.7 60.6 BUN/Creatinine Ratio 17 (6-20) 16 (6-20) Glucose Level 189 mg/dL (70-99) 203 mg/dL (70-99) Calcium Level 9.9 mg/dL (8.5-10.1) 9.6 mg/dL (8.5-10.1) Magnesium Level 1.5 mg/dL (1.8-2.4) 1.5 mg/dL (1.8-2.4) Total Bilirubin 0.5 mg/dL (0.2-1.0) 0.5 mg/dL (0.2-1.0) Aspartate Amino Transf (AST/SGOT) 28 U/L (15-37) 25 U/L (15-37) Alanine Aminotransferase (ALT/SGPT) 37 U/L (16-63) 33 U/L (16-63) Alkaline Phosphatase 95 U/L (46-116) 92 U/L (46-116) Creatine Kinase 30 U/L (39-308) Troponin I Quantitative < 0.017 ng/mL (0.000-0.055) DO-Ndw-R-Type Natriuretic Peptide 248 pg/mL (0-124) Total Protein 7.6 g/dL (6.4-8.2) 7.0 g/dL (6.4-8.2) Albumin 3.6 g/dL (3.4-5.0) 3.3 g/dL (3.4-5.0) Albumin/Globulin Ratio 0.9 (1.0-1.7) 0.9 (1.0-1.7) Lipase 239 U/L (73-393) 120 U/L (73-393) Urine Collection Type Void Urine Color Yellow Urine Clarity Clear Urine pH 5.5 Urine Specific [place] 1.020 Urine Protein Negative mg/dL (NEG-TRACE) Urine Glucose (UA) 100 mg/dL (NEG) Urine Ketones (Stick) Negative mg/dL (NEG) Urine Blood Negative (NEG) Urine Nitrite Negative (NEG) Urine Bilirubin Negative (NEG) Urine Urobilinogen Dipstick 1.0 mg/dL (0.2 mg/dL) Urine Leukocyte Esterase Negative (NEG) Urine RBC 0 /HPF (0-2) Urine WBC 11-20 /HPF (0-4) Urine Squamous Epithelial Cells Few /LPF Urine Bacteria Moderate /HPF (0-FEW) Urine Hyaline Casts Moderate /HPF Urine Mucus Mod /LPF Glucose (Fingerstick) 152 mg/dL (70-99) Vitamin B12 Level 332 pg/mL (247-911) Thyroid Stimulating Hormone (TSH) 2.062 uIU/mL (0.358-3.74) Test 07/13/18 07:59 07/13/18 12:09 07/13/18 13:15 07/13/18 16:59 Glucose (Fingerstick) 240 mg/dL (70-99) 187 mg/dL (70-99) 173 mg/dL (70-99) 153 mg/dL (70-99) Test 07/13/18 20:29 07/14/18 06:30 07/14/18 07:49 Glucose (Fingerstick) 214 mg/dL (70-99) 168 mg/dL (70-99) White Blood Count 7.1 x10^3/uL (4.0-11.0) Red Blood Count 4.31 x10^6/uL (4.30-5.70) Hemoglobin 12.2 g/dL (13.0-17.5) Hematocrit 35.4 % (39.0-53.0) Mean Corpuscular Volume 82 fL (79-100) Mean Corpuscular Hemoglobin 28 pg (25-35) Mean Corpuscular Hemoglobin Concent 35 g/dL (31-37) Red Cell Distribution Width 15.7 % (11.5-14.5) Platelet Count 190 x10^3/uL (140-400) Neutrophils (%) (Auto) 77 % (31-73) Lymphocytes (%) (Auto) 14 % (24-48) Monocytes (%) (Auto) 5 % (0-9) Eosinophils (%) (Auto) 3 % (0-3) Basophils (%) (Auto) 1 % (0-3) Neutrophils # (Auto) 5.5 x10^3uL (1.8-7.7) Lymphocytes # (Auto) 1.0 x10^3/uL (1.0-4.8) Monocytes # (Auto) 0.3 x10^3/uL (0.0-1.1) Eosinophils # (Auto) 0.2 x10^3/uL (0.0-0.7) Basophils # (Auto) 0.1 x10^3/uL (0.0-0.2) Sodium Level 138 mmol/L (136-145) Potassium Level 3.8 mmol/L (3.5-5.1) Chloride Level 103 mmol/L (98-107) Carbon Dioxide Level 25 mmol/L (21-32) Anion Gap 10 (6-14) Blood Urea Nitrogen 13 mg/dL (8-26) Creatinine 1.1 mg/dL (0.7-1.3) Estimated GFR (Cockcroft-Gault) 67.0 BUN/Creatinine Ratio 12 (6-20) Glucose Level 190 mg/dL (70-99) Calcium Level 9.3 mg/dL (8.5-10.1) Magnesium Level 1.8 mg/dL (1.8-2.4) Total Bilirubin 0.4 mg/dL (0.2-1.0) Aspartate Amino Transf (AST/SGOT) 26 U/L (15-37) Alanine Aminotransferase (ALT/SGPT) 32 U/L (16-63) Alkaline Phosphatase 93 U/L (46-116) Total Protein 6.9 g/dL (6.4-8.2) Albumin 3.2 g/dL (3.4-5.0) Albumin/Globulin Ratio 0.9 (1.0-1.7) Laboratory Tests Test 07/13/18 12:09 07/13/18 13:15 07/13/18 16:59 07/13/18 20:29 Glucose (Fingerstick) 187 mg/dL (70-99) 173 mg/dL (70-99) 153 mg/dL (70-99) 214 mg/dL (70-99) Test 07/14/18 06:30 07/14/18 07:49 White Blood Count 7.1 x10^3/uL (4.0-11.0) Red Blood Count 4.31 x10^6/uL (4.30-5.70) Hemoglobin 12.2 g/dL (13.0-17.5) Hematocrit 35.4 % (39.0-53.0) Mean Corpuscular Volume 82 fL (79-100) Mean Corpuscular Hemoglobin 28 pg (25-35) Mean Corpuscular Hemoglobin Concent 35 g/dL (31-37) Red Cell Distribution Width 15.7 % (11.5-14.5) Platelet Count 190 x10^3/uL (140-400) Neutrophils (%) (Auto) 77 % (31-73) Lymphocytes (%) (Auto) 14 % (24-48) Monocytes (%) (Auto) 5 % (0-9) Eosinophils (%) (Auto) 3 % (0-3) Basophils (%) (Auto) 1 % (0-3) Neutrophils # (Auto) 5.5 x10^3uL (1.8-7.7) Lymphocytes # (Auto) 1.0 x10^3/uL (1.0-4.8) Monocytes # (Auto) 0.3 x10^3/uL (0.0-1.1) Eosinophils # (Auto) 0.2 x10^3/uL (0.0-0.7) Basophils # (Auto) 0.1 x10^3/uL (0.0-0.2) Sodium Level 138 mmol/L (136-145) Potassium Level 3.8 mmol/L (3.5-5.1) Chloride Level 103 mmol/L (98-107) Carbon Dioxide Level 25 mmol/L (21-32) Anion Gap 10 (6-14) Blood Urea Nitrogen 13 mg/dL (8-26) Creatinine 1.1 mg/dL (0.7-1.3) Estimated GFR (Cockcroft-Gault) 67.0 BUN/Creatinine Ratio 12 (6-20) Glucose Level 190 mg/dL (70-99) Calcium Level 9.3 mg/dL (8.5-10.1) Magnesium Level 1.8 mg/dL (1.8-2.4) Total Bilirubin 0.4 mg/dL (0.2-1.0) Aspartate Amino Transf (AST/SGOT) 26 U/L (15-37) Alanine Aminotransferase (ALT/SGPT) 32 U/L (16-63) Alkaline Phosphatase 93 U/L (46-116) Total Protein 6.9 g/dL (6.4-8.2) Albumin 3.2 g/dL (3.4-5.0) Albumin/Globulin Ratio 0.9 (1.0-1.7) Glucose (Fingerstick) 168 mg/dL (70-99) Medications Current Medications Sodium Chloride 1,000 ml @ 1,000 mls/hr Q1H IV Last administered on 07/12/18at 14:09; Start 07/12/18 at 13:47; Stop 07/12/18 at 14:46; Status DC Ondansetron HCl (Zofran) 4 mg PRN Q8HRS PRN IV NAUSEA/VOMITING; Start 07/12/18 at 16:45; Stop 07/13/18 at 16:44; Status DC Info (Do NOT chart on this placeholder) 0.5 each 1X ONCE MC ; Start 07/12/18 at 19:00; Stop 07/12/18 at 19:01; Status UNV Influenza Virus Vaccine (Afluria Trivalent 0418-9018 Syringe) 0.5 ml ONCE ONCE VAX IM Last administered on 07/13/18at 21:10; Start 07/12/18 at 21:00; Stop at 21:01; Status DC Potassium Chloride/Sodium Chloride 1,000 ml @ 80 mls/hr [id number] IV Last administered on 07/13/18at 20:29; Start 07/12/18 at 20:00 Insulin Human Lispro (HumaLOG) 0-7 UNITS TIDWMEALS SQ Last administered on 07/14at 09:26; Start 07/13/18 at 08:00 Dextrose (Dextrose 50%-Water Syringe) 12.5 gm PRN Q15MIN PRN IV SEE COMMENTS; Start 07/12/18 at 19:30 Acetaminophen (Tylenol) 650 mg PRN Q6HRS PRN PO MILD PAIN / TEMP Last administered on 07/13/18at 20:28; Start 07/12/18 at 19:30 Insulin Glargine (Lantus) 20 units BID SQ Last administered on 07/13/18at 09:00 ; Start 07/12/18 at 21:00; Stop 07/13/18 at 09:48; Status DC Aspirin (Lorna Aspirin) 325 mg DAILY PO Last administered on 07/14/18at 09:19; Start 07/13/18 at 09:00 Atorvastatin Calcium (Lipitor) 40 mg QHS PO Last administered on 07/13/18at 20: 28; Start 07/12/18 at 21:00 Carvedilol (Coreg) 6.25 mg BIDWMEALS PO Last administered on 07/13/18at 08:44; Start 07/13/18 at 08:00; Stop 07/13/18 at 13:22; Status DC Clopidogrel Bisulfate (Plavix) 75 mg DAILYWBKFT PO Last administered on at 09:18; Start 07/13/18 at 08:00 Lisinopril (Prinivil) 20 mg DAILY PO Last administered on 07/13/18at 08:45; Start 07/13/18 at 09:00; Stop 07/13/18 at 13:22; Status DC Prochlorperazine Maleate (Compazine) 10 mg PRN QID PRN PO NAUSEA/VOMITING 1ST CHOICE; Start 07/12/18 at 20:30 Gabapentin (Neurontin) 300 mg QHS PO Last administered on 07/13/18at 20:28; Start 07/12/18 at 21:00 Hydrochlorothiazide (Microzide) 12.5 mg DAILY PO Last administered on 09:19; Start 07/13/18 at 09:00 Pantoprazole Sodium (Protonix) 40 mg DAILYAC PO Last administered on 07/14/18 09:19; Start 07/13/18 at 07:30 Sertraline HCl (Zoloft) 100 mg QHS PO Last administered on 07/13/18at 20:28; Start 07/12/18 at 21:00 Insulin Glargine (Lantus) 60 units BID SQ Last administered on 07/14/18at 09:27 ; Start 07/13/18 at 21:00 Insulin Human Lispro (HumaLOG) 10 units TIDWMEALS SQ Last administered on at 09:26; Start 07/13/18 at 12:00 Magnesium Sulfate 50 ml @ 25 mls/hr 1X ONCE IV Last administered on 07/13/18at 11:23; Start 07/13/18 at 11:00; Stop 07/13/18 at 12:59; Status DC Magnesium Sulfate 50 ml @ 25 mls/hr 1X ONCE IV ; Start 07/13/18 at 13:30; Stop 07/13/18 at 14:41; Status DC Carvedilol (Coreg) 3.125 mg BIDWMEALS PO Last administered on 07/14/18at 09:18; Start 07/13/18 at 17:00 Lisinopril (Prinivil) 40 mg DAILY PO Last administered on 07/14/18at 09:19; Start 07/14/18 at 09:00 Perflutren Protein Type A Microsphe (Optison) 0.66 mg STK-MED ONCE IV ; Start at 15:37; Stop 07/13/18 at 15:38; Status DC Perflutren Protein Type A Microsphe (Optison) 0.66 mg PRN 1X PRN IV SEE COMMENTS Last administered on 07/13/18at 15:42; Start 07/13/18 at 15:45; Stop at 15:44 Insulin Human Lispro (HumaLOG) 2 units 1X ONCE SQ Last administered on at 21:13; Start 07/13/18 at 21:00; Stop 07/13/18 at 21:01; Status DC Active Scripts Active Plavix (Clopidogrel Bisulfate) 75 Mg Tablet 75 Mg PO DAILYWBKFT Reported Prochlorperazine Maleate 10 Mg Tablet 1 Tab PO PRN QID PRN Protonix (Pantoprazole Sodium) 20 Mg Tablet.dr 40 Mg PO DAILY Novolog (Insulin Aspart) 100 Unit/1 Ml Cartridge 25 Unit SQ TID Levemir (Insulin Detemir) 100 Unit/1 Ml Vial 45 Unit SQ BID Zoloft (Sertraline Hcl) 100 Mg Tablet 1 Tab PO HS Hydrochlorothiazide Tablet (Hydrochlorothiazide) 12.5 Mg Tablet 1 Tab PO DAILY Gabapentin 300 Mg Capsule 300 Mg PO HS Coreg (Carvedilol) 6.25 Mg Tablet 1 Tab PO BID Lipitor (Atorvastatin Calcium) 40 Mg Tablet 1 Tab PO QHS Lisinopril 20 Mg Tablet 20 Mg PO DAILY Aspirin 325 Mg Tablet 1 Tab PO DAILY Vitals/I & O Vital Sign - Last 24 Hours 07/13/18 07/13/18 07/13/18 07/13/18 11:00 11:07 11:08 11:08 Temp 98.1 98.1 Pulse 65 51 67 64 Resp 18 B/P (MAP) 146/89 (108) 132/72 (92) 115/63 (80) 134/74 (94) Pulse Ox 97 O2 Delivery Room Air 07/13/18 07/13/18 07/13/18 07/13/18 15:00 17:22 19:00 20:00 Temp 98.1 97.4 98.1 97.4 Pulse 53 53 52 Resp 18 18 B/P (MAP) 156/72 (100) 156/72 178/79 (112) Pulse Ox 98 94 O2 Delivery Room Air Room Air Room Air 07/13/18 07/14/18 07/14/18 07/14/18 23:00 03:00 07:00 09:18 Temp 98.4 98.0 98.3 98.4 98.0 98.3 Pulse 57 58 61 61 Resp 18 18 18 B/P (MAP) 145/70 (95) 130/61 (84) 177/88 (117) 177/88 Pulse Ox 95 93 97 O2 Delivery Room Air Room Air Room Air 07/14/18 09:19 Pulse 61 B/P (MAP) 177/88 PARTHA PETTY MD Jul 14, 2018 10:00
--- NOTE | 2018-07-14 10:15 | DISCH ---
DISCHARGE INSTRUCTIONS Condition on Discharge Condition on Discharge: Stable Activity After Discharge Activity Instructions for Disc: Activity as tolerated Exercise Instruction after Dis: Progress as tolerated Weight Bearing Status after Di: As tolerated Diet after Discharge Diet after Discharge: Cardiac, Diabetic No Calorie Level Additional Diet Restrictions: 1800 Magdi ADA Diet Texture: Regular Liquid Texture: Thin Liquid Swallowing Supervision: None needed Wound Incision Care Wound/Incision Care: May get incision wet Checks after Discharge Checks after discharge: Check blood sugar, ac/hs Contacting the [facility] after DC Call your doctor for: Concerns you may have Follow-Up Follow up with: Dr.Pratip Ryan on 07/19/18 Treatment/Equipment after DC Adaptive Equipment Issued: None MARY KATE RYAN MD Jul 14, 2018 10:15
--- NOTE | 2018-07-14 10:25 | PDOC3 ---
IM DISCHARGE SUMMARY Date of Admission Date of Admission Date of Admission: Jul 12, 2018 at 16:30 Date of Discharge Date of Discharge 07/14/18 Consults Consults Robert Melo MD Labs Labs Laboratory Tests Test 07/12/18 13:35 07/12/18 17:30 07/12/18 20:56 07/13/18 04:10 White Blood Count 9.2 x10^3/uL (4.0-11.0) 7.8 x10^3/uL (4.0-11.0) Red Blood Count 4.56 x10^6/uL (4.30-5.70) 4.35 x10^6/uL (4.30-5.70) Hemoglobin 12.8 g/dL (13.0-17.5) 12.3 g/dL (13.0-17.5) Hematocrit 37.3 % (39.0-53.0) 35.5 % (39.0-53.0) Mean Corpuscular Volume 82 fL (79-100) 82 fL (79-100) Mean Corpuscular Hemoglobin 28 pg (25-35) 28 pg (25-35) Mean Corpuscular Hemoglobin Concent 34 g/dL (31-37) 35 g/dL (31-37) Red Cell Distribution Width 15.3 % (11.5-14.5) 15.6 % (11.5-14.5) Platelet Count 212 x10^3/uL (140-400) 191 x10^3/uL (140-400) Neutrophils (%) (Auto) 80 % (31-73) 73 % (31-73) Lymphocytes (%) (Auto) 12 % (24-48) 18 % (24-48) Monocytes (%) (Auto) 6 % (0-9) 5 % (0-9) Eosinophils (%) (Auto) 2 % (0-3) 3 % (0-3) Basophils (%) (Auto) 1 % (0-3) 1 % (0-3) Neutrophils # (Auto) 7.4 x10^3uL (1.8-7.7) 5.7 x10^3uL (1.8-7.7) Lymphocytes # (Auto) 1.1 x10^3/uL (1.0-4.8) 1.4 x10^3/uL (1.0-4.8) Monocytes # (Auto) 0.5 x10^3/uL (0.0-1.1) 0.4 x10^3/uL (0.0-1.1) Eosinophils # (Auto) 0.1 x10^3/uL (0.0-0.7) 0.2 x10^3/uL (0.0-0.7) Basophils # (Auto) 0.0 x10^3/uL (0.0-0.2) 0.0 x10^3/uL (0.0-0.2) Prothrombin Time 13.8 SEC (11.7-14.0) Prothromb Time International Ratio 1.1 (0.8-1.1) Activated Partial Thromboplast Time 29 SEC (24-38) Sodium Level 138 mmol/L (136-145) 138 mmol/L (136-145) Potassium Level 4.1 mmol/L (3.5-5.1) 3.9 mmol/L (3.5-5.1) Chloride Level 99 mmol/L (98-107) 101 mmol/L (98-107) Carbon Dioxide Level 27 mmol/L (21-32) 27 mmol/L (21-32) Anion Gap 12 (6-14) 10 (6-14) Blood Urea Nitrogen 24 mg/dL (8-26) 19 mg/dL (8-26) Creatinine 1.4 mg/dL (0.7-1.3) 1.2 mg/dL (0.7-1.3) Estimated GFR (Cockcroft-Gault) 50.7 60.6 BUN/Creatinine Ratio 17 (6-20) 16 (6-20) Glucose Level 189 mg/dL (70-99) 203 mg/dL (70-99) Calcium Level 9.9 mg/dL (8.5-10.1) 9.6 mg/dL (8.5-10.1) Magnesium Level 1.5 mg/dL (1.8-2.4) 1.5 mg/dL (1.8-2.4) Total Bilirubin 0.5 mg/dL (0.2-1.0) 0.5 mg/dL (0.2-1.0) Aspartate Amino Transf (AST/SGOT) 28 U/L (15-37) 25 U/L (15-37) Alanine Aminotransferase (ALT/SGPT) 37 U/L (16-63) 33 U/L (16-63) Alkaline Phosphatase 95 U/L (46-116) 92 U/L (46-116) Creatine Kinase 30 U/L (39-308) Troponin I Quantitative < 0.017 ng/mL (0.000-0.055) PV-Hxa-B-Type Natriuretic Peptide 248 pg/mL (0-124) Total Protein 7.6 g/dL (6.4-8.2) 7.0 g/dL (6.4-8.2) Albumin 3.6 g/dL (3.4-5.0) 3.3 g/dL (3.4-5.0) Albumin/Globulin Ratio 0.9 (1.0-1.7) 0.9 (1.0-1.7) Lipase 239 U/L (73-393) 120 U/L (73-393) Urine Collection Type Void Urine Color Yellow Urine Clarity Clear Urine pH 5.5 Urine Specific [place] 1.020 Urine Protein Negative mg/dL (NEG-TRACE) Urine Glucose (UA) 100 mg/dL (NEG) Urine Ketones (Stick) Negative mg/dL (NEG) Urine Blood Negative (NEG) Urine Nitrite Negative (NEG) Urine Bilirubin Negative (NEG) Urine Urobilinogen Dipstick 1.0 mg/dL (0.2 mg/dL) Urine Leukocyte Esterase Negative (NEG) Urine RBC 0 /HPF (0-2) Urine WBC 11-20 /HPF (0-4) Urine Squamous Epithelial Cells Few /LPF Urine Bacteria Moderate /HPF (0-FEW) Urine Hyaline Casts Moderate /HPF Urine Mucus Mod /LPF Glucose (Fingerstick) 152 mg/dL (70-99) Vitamin B12 Level 332 pg/mL (247-911) Thyroid Stimulating Hormone (TSH) 2.062 uIU/mL (0.358-3.74) Test 07/13/18 07:59 07/13/18 12:09 07/13/18 13:15 07/13/18 16:59 Glucose (Fingerstick) 240 mg/dL (70-99) 187 mg/dL (70-99) 173 mg/dL (70-99) 153 mg/dL (70-99) Test 07/13/18 20:29 07/14/18 06:30 07/14/18 07:49 Glucose (Fingerstick) 214 mg/dL (70-99) 168 mg/dL (70-99) White Blood Count 7.1 x10^3/uL (4.0-11.0) Red Blood Count 4.31 x10^6/uL (4.30-5.70) Hemoglobin 12.2 g/dL (13.0-17.5) Hematocrit 35.4 % (39.0-53.0) Mean Corpuscular Volume 82 fL (79-100) Mean Corpuscular Hemoglobin 28 pg (25-35) Mean Corpuscular Hemoglobin Concent 35 g/dL (31-37) Red Cell Distribution Width 15.7 % (11.5-14.5) Platelet Count 190 x10^3/uL (140-400) Neutrophils (%) (Auto) 77 % (31-73) Lymphocytes (%) (Auto) 14 % (24-48) Monocytes (%) (Auto) 5 % (0-9) Eosinophils (%) (Auto) 3 % (0-3) Basophils (%) (Auto) 1 % (0-3) Neutrophils # (Auto) 5.5 x10^3uL (1.8-7.7) Lymphocytes # (Auto) 1.0 x10^3/uL (1.0-4.8) Monocytes # (Auto) 0.3 x10^3/uL (0.0-1.1) Eosinophils # (Auto) 0.2 x10^3/uL (0.0-0.7) Basophils # (Auto) 0.1 x10^3/uL (0.0-0.2) Sodium Level 138 mmol/L (136-145) Potassium Level 3.8 mmol/L (3.5-5.1) Chloride Level 103 mmol/L (98-107) Carbon Dioxide Level 25 mmol/L (21-32) Anion Gap 10 (6-14) Blood Urea Nitrogen 13 mg/dL (8-26) Creatinine 1.1 mg/dL (0.7-1.3) Estimated GFR (Cockcroft-Gault) 67.0 BUN/Creatinine Ratio 12 (6-20) Glucose Level 190 mg/dL (70-99) Calcium Level 9.3 mg/dL (8.5-10.1) Magnesium Level 1.8 mg/dL (1.8-2.4) Total Bilirubin 0.4 mg/dL (0.2-1.0) Aspartate Amino Transf (AST/SGOT) 26 U/L (15-37) Alanine Aminotransferase (ALT/SGPT) 32 U/L (16-63) Alkaline Phosphatase 93 U/L (46-116) Total Protein 6.9 g/dL (6.4-8.2) Albumin 3.2 g/dL (3.4-5.0) Albumin/Globulin Ratio 0.9 (1.0-1.7) Brief hospital course Brief hospital course This 68 year old male who presented with recurrent nausea vomiting weakness and dizziness. He was not able to eat. He was dehydrated. He was noted to be in acute renal failure. Patient had a syncopal episode after vomiting and he had hurt his right side. For more details regarding the past history, family history, social history, surgical history and other details, please refer to History and Physical. 1. Syncope, likely vasovagal due to persistent vomiting. 2. Fall with trauma to the right elbow and right side. X-rays are negative so far. 3. Recurrent vomiting, multifactorial. 4. 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 Also worse due to noncompliance. 5. Vascular dementia. 6. Hypertensive crisis. 7. Dehydration. 8. Acute metabolic encephalopathy, improving. 9. Coronary artery disease. 10. History of coronary artery bypass graft. 11. Gait disorder. 12. Moderate protein-calorie malnutrition. 13. History of depression. 14. Hyperlipidemia. 15. History of recurrent non-injury falls in the past. 16. Bilateral carotid artery stenosis. 17. History of cerebrovascular accidents, [id number], left estevez radiata infarct in 2016. 18. History of carotid artery stenosis with ICA and ECA status post left CEA in end of March 2018. 19. History of vertebral artery occlusion. 20. History of severe stenosis proximal basilar artery. 21. Bradycardia. 22. History of cerebrovascular accident, left cerebellar and left parietal with ataxia in 2017. PLAN: Continue to advance diet. The patient's vomiting is improving. Consult Dr. Schumacher for GI evaluation and management. We will consult Dr. Freeman for gait disorder and multiple falls. We will consult Dr. Robison for syncope. The patient and family does not want to see Dr. Melo for his vascular dementia. Prognosis of this patient is very poor due to his noncompliance and multiple medical problems. I will use hydralazine 10 mg IV q.6 hours p.r.n. for blood pressure systolic more than 160. I have initially decreased the dose of his insulin, but now today I will increase it gradually as his oral intake improves. Advance diet as tolerated. For details, please refer to the orders. Acute renal failure -resolved with IV fluids. Recurrent nausea and vomitingconsultation was obtained with Dr. Schumacher. He is feeling better now and tolerating diet. Continue oral Zofran as needed as outpatient. Syncope. Cardiac workup is negative so far. We will await to see if the senior java developer wants to put an event monitor. Hypertension- improving control. Weakness- Yesterday physical therapy could not do therapy because of orthostasis. Fall- x-rays and CT scans did not show any acute changes. 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 His condition is improved and he is eating better and walking better. We'll discharge home and follow-up in the office in 5 days. For other details please refer the discharge orders. Medications Medications reviewed and reconciled for discharge. Allergy Allergies Coded Allergies Type Severity Reaction Last Updated Verified Penicillins Allergy Severe hives, itching, swelling 05/25/18 Yes Follow up in 5 days. Comments Discharge Management - 35 minutes. For other details please refer to discharge instructions MARY KATE RYAN MD Jul 14, 2018 10:25
--- NOTE | 2018-07-14 10:34 | PDOC ---
Subjective: Subjective: Still some nausea but no vomiting. Feels the room is moving even when he's still. Objective: Objective: Has DC orders. Vital Signs: Vital Signs Date Time Temp Pulse Resp B/P (MAP) Pulse Ox O2 Delivery O2 Flow Rate FiO2 07/14/18 09:19 61 177/88 07/14/18 07:00 98.3 18 97 Room Air 98.3 Labs: Laboratory Tests Test 07/13/18 12:09 07/13/18 13:15 07/13/18 16:59 07/13/18 20:29 Glucose (Fingerstick) 187 mg/dL 173 mg/dL 153 mg/dL 214 mg/dL Test 07/14/18 06:30 07/14/18 07:49 White Blood Count 7.1 x10^3/uL Red Blood Count 4.31 x10^6/uL Hemoglobin 12.2 g/dL Hematocrit 35.4 % Mean Corpuscular Volume 82 fL Mean Corpuscular Hemoglobin 28 pg Mean Corpuscular Hemoglobin Concent 35 g/dL Red Cell Distribution Width 15.7 % Platelet Count 190 x10^3/uL Neutrophils (%) (Auto) 77 % Lymphocytes (%) (Auto) 14 % Monocytes (%) (Auto) 5 % Eosinophils (%) (Auto) 3 % Basophils (%) (Auto) 1 % Neutrophils # (Auto) 5.5 x10^3uL Lymphocytes # (Auto) 1.0 x10^3/uL Monocytes # (Auto) 0.3 x10^3/uL Eosinophils # (Auto) 0.2 x10^3/uL Basophils # (Auto) 0.1 x10^3/uL Sodium Level 138 mmol/L Potassium Level 3.8 mmol/L Chloride Level 103 mmol/L Carbon Dioxide Level 25 mmol/L Anion Gap 10 Blood Urea Nitrogen 13 mg/dL Creatinine 1.1 mg/dL Estimated GFR (Cockcroft-Gault) 67.0 BUN/Creatinine Ratio 12 Glucose Level 190 mg/dL Calcium Level 9.3 mg/dL Magnesium Level 1.8 mg/dL Total Bilirubin 0.4 mg/dL Aspartate Amino Transf (AST/SGOT) 26 U/L Alanine Aminotransferase (ALT/SGPT) 32 U/L Alkaline Phosphatase 93 U/L Total Protein 6.9 g/dL Albumin 3.2 g/dL Albumin/Globulin Ratio 0.9 Glucose (Fingerstick) 168 mg/dL Imaging: Echo <Conclusion> The left ventricular systolic function is normal The Ejection Fraction is 55-60%. There is normal LV segmental wall motion. Doppler and Color Flow revealed mild tricuspid regurgitation. The PA pressure was estimated at 18 mmHg. There is no evidence of significant pericardial effusion. PE: GEN: NAD LUNGS: CTAB HEART: RRR ABD: S/ND/NT NEURO/PSYCH: A & O 3 A/P: Syncope, falls, n/v -- ?vertigo - try meclizine Continue PPI. YADIEL PARKINSON Jul 14, 2018 10:34
[2018-07-14] MEDS ORDERED: MECLIZINE HCL 12.5 MG TABLET. PO PRN (10:45)
--- NOTE | 2018-07-14 11:17 | PDOC ---
NEFTALY HOOD SHUTTLE FINAL INSPECTOR 07/14/18 1117: CARDIO Progress Notes Date and Time Date of Service 07/14/2018 Time of Evaluation 1110 Subjective Subjective: No Chest Pain, No shortness of breath, No Palpitations, Other ( slept well overnight. ) Vitals Vitals Vital Signs Date Time Temp Pulse Resp B/P (MAP) Pulse Ox O2 Delivery O2 Flow Rate FiO2 07/14/18 09:19 61 177/88 07/14/18 08:00 Room Air 07/14/18 07:00 98.3 18 97 98.3 Weight Weight [ ] Laboratory Labs Laboratory Tests Test 07/13/18 12:09 07/13/18 13:15 07/13/18 16:59 07/13/18 20:29 Glucose (Fingerstick) 187 mg/dL (70-99) 173 mg/dL (70-99) 153 mg/dL (70-99) 214 mg/dL (70-99) Test 07/14/18 06:30 07/14/18 07:49 White Blood Count 7.1 x10^3/uL (4.0-11.0) Red Blood Count 4.31 x10^6/uL (4.30-5.70) Hemoglobin 12.2 g/dL (13.0-17.5) Hematocrit 35.4 % (39.0-53.0) Mean Corpuscular Volume 82 fL (79-100) Mean Corpuscular Hemoglobin 28 pg (25-35) Mean Corpuscular Hemoglobin Concent 35 g/dL (31-37) Red Cell Distribution Width 15.7 % (11.5-14.5) Platelet Count 190 x10^3/uL (140-400) Neutrophils (%) (Auto) 77 % (31-73) Lymphocytes (%) (Auto) 14 % (24-48) Monocytes (%) (Auto) 5 % (0-9) Eosinophils (%) (Auto) 3 % (0-3) Basophils (%) (Auto) 1 % (0-3) Neutrophils # (Auto) 5.5 x10^3uL (1.8-7.7) Lymphocytes # (Auto) 1.0 x10^3/uL (1.0-4.8) Monocytes # (Auto) 0.3 x10^3/uL (0.0-1.1) Eosinophils # (Auto) 0.2 x10^3/uL (0.0-0.7) Basophils # (Auto) 0.1 x10^3/uL (0.0-0.2) Sodium Level 138 mmol/L (136-145) Potassium Level 3.8 mmol/L (3.5-5.1) Chloride Level 103 mmol/L (98-107) Carbon Dioxide Level 25 mmol/L (21-32) Anion Gap 10 (6-14) Blood Urea Nitrogen 13 mg/dL (8-26) Creatinine 1.1 mg/dL (0.7-1.3) Estimated GFR (Cockcroft-Gault) 67.0 BUN/Creatinine Ratio 12 (6-20) Glucose Level 190 mg/dL (70-99) Calcium Level 9.3 mg/dL (8.5-10.1) Magnesium Level 1.8 mg/dL (1.8-2.4) Total Bilirubin 0.4 mg/dL (0.2-1.0) Aspartate Amino Transf (AST/SGOT) 26 U/L (15-37) Alanine Aminotransferase (ALT/SGPT) 32 U/L (16-63) Alkaline Phosphatase 93 U/L (46-116) Total Protein 6.9 g/dL (6.4-8.2) Albumin 3.2 g/dL (3.4-5.0) Albumin/Globulin Ratio 0.9 (1.0-1.7) Glucose (Fingerstick) 168 mg/dL (70-99) Physical Exam HEENT: Neck Supple W Full Motion Chest: Symmetric LUNGS: Clear to Auscultation Heart: S1S2, RRR (SR) Abdomen: Soft N/T Extremities: No Calf Tenderness Neurology: alert, oriented, follow commands Assessment Assessment 1. Syncope with nontraumatic fall: EF and WM nml. 2. Persistent multiple presyncopal episodes 3. Asymptomatic SB: None further after coreg was decreased 4. CAD: past CABG, clinically stable. 5. DM2: no noted hypoglycemic reaction. Insulin dependent 6. Hx of CVA/carotid artery disease with recent bilateral CEA 7. CKD2 8. HTN: mild labile episodes 9. Suspecting SH-OH syndrome with autonomic dysfunction: significant orthostasis with rehab yesterday afternoon with dizziness. Recommendations 1. Suspect reflex syncope with component of vasovagal exacerbated with dehydration. Also episodic orthostasis. Neg for CSH. Plan for outpt event monitor to rule out any underlying arrhythmias. 2. Continue with secondary prevention measures. Continue lower dose coreg, lisinopril, HCTZ. 3. Will do orthostatic measurements with and and without abdominal binder and compression stockings and will also note chronotropic response to exertion with rehab If definitely SH-OH syndrome is confirmed the. would need to be partially sitting up to maintain good BP reading and with slow positional changes. would suggest to limite laying supine as this will promote labile BP. Midodrine could not be utilize as this will promote further BP elevation. Clos supervision at home during ambulation. 4. Discussed with pt to maintain BG control and hydration adequacy. GABBIE JONES MD 07/14/18 9481: CARDIO Progress Notes Assessment Assessment Patient seen and examined. Agree with QUALITY IMPROVEMENT COORDINATOR (RN)'s assessment and plan. 2-D echo showed normal LV function without any significant structural abnormalities Plan for event monitor as an outpatient, to rule out any significant arrhythmias NEFTALY HOOD APRN Jul 14, 2018 11:17 GABBIE JONES MD Jul 14, 2018 16:29
--- NOTE | 2018-07-14 16:30 | PDOC ---
PROGRESS NOTES Assessment Assessment Chronic intermittent dizziness, multifactorial, including vascular etiology. Syncopal spells. Falls. UTI. Nausea, vomiting and diarrhea. 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 Carotid A stenosis s/p endarterectomy. 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 Moderate to severe stenosis in proximal basilar artery. Hyperglycemia. DM CAD NE HTN CKD Degenerative spine and joint diseases. Obesity. RECOMMENDATIONS/PLAN: Continue Plavix 75 mg daily. Continue ASA 325 mg daily. Continue Lipitor 40 mg HS. FU with Vascular Surgery. Treat medical diseases. Weight reduction. Exercise. Discussed with his again at bedside on 07/14/18. HISTORY OF THE PRESENT ILLNESS: This is a 68-y-old male patient with above medical diseases and chronic intermittent symptoms of dizziness and syncopal like episodes. He was admitted thsi time due to nausea, vomiting and diarrhea and he fell on the floor on his right side and injured his right shoulder and elbow to come to the ER of [facility]. Past Medical History Cardiovascular: CAD, HTN, NE, Hyperlipidemia CENTRAL NERVOUS SYSTEM: CVA, Dementia GI: Other (umbilical hernia) Heme/Onc: Anemia NOS Renal/: Chronic renal insuff (CKD 2) Endocrine: Diabetes Past Surgical History Cholecystectomy, CABG, Other (cardiac catheterization) Family History CAD Social History , quit smoking 16 years ago, rare alcohol, retired ALLERGY: Reviewed. MEDICATIONS: Refer to MAR REVIEW OF SYSTEMS: Constitutional: obese. Head: No traumatic brain or head injury. Skin: No edema, or rash. Ear: No infection. Eyes: No vision loss, or diplopia. Nose: No bleeding or purulent discharges. Hearing: No hearing decrease. Neck: No injury. Cardiac: NE, CAD, HTN, HLD Pulmonary: No COPD.. GI: No GI Ulcer, GI bleeding Urinary/genital:UTI. Endocrine: Diabetes Mellitus. Skeletomuscular: No muscular atrophy, deformity. Neurological: see HP. Psychiatric: Denies drug use/abuse. Otherwise, not [id number] review of systems. PHYSICAL EXAMINATION: General appearance in subacute distress. HEENT: Normocephalic and nontraumatic. Eyes, nose, ears, and throat are unremarkable. Neck is supple. No lymphadenopathy. No Crepitus. Cardiovascular: S1, S2, regular rate and rhythm. Pulmonary: Clear to auscultation bilaterally. Abdomen: Bowel sounds are positive. Abdomen is soft, nontender, and nondistended. Extremities: No rash, lesions, or edema. No restriction of range of motion NEUROLOGICAL EXAMINATION: Alert. Oriented to time, place and person. PERRL. EOMI. CN: no focal findings. Muscle tone: within normal. Muscle strength: 5 DTR: 1-2 Plantar reflex: Neutral response bilaterally Gait: not examined in bed. Sensory exam: no abnormal findings. No obvious cerebellar signs elicited. F-T-N test fine. Objective Objective Vital Signs Date Time Temp Pulse Resp B/P (MAP) Pulse Ox O2 Delivery O2 Flow Rate FiO2 07/14/18 11:10 62 125/55 (78) 07/14/18 11:00 98.1 18 93 Room Air 98.1 Vitals Signs Vitals VS - Last 72 Hours, by Label Date Time Temp Pulse Resp B/P (MAP) Pulse Ox O2 Delivery O2 Flow Rate FiO2 07/14/18 11:10 62 125/55 (78) 07/14/18 11:05 56 180/85 (116) 07/14/18 11:00 98.1 58 18 177/88 (117) 93 Room Air 98.1 07/14/18 09:19 61 177/88 07/14/18 09:18 61 177/88 07/14/18 08:00 Room Air 07/14/18 07:00 98.3 61 18 177/88 (117) 97 Room Air 98.3 07/14/18 03:00 98.0 58 18 130/61 (84) 93 Room Air 98.0 07/13/18 23:00 98.4 57 18 145/70 (95) 95 Room Air 98.4 07/13/18 20:00 Room Air 07/13/18 19:00 97.4 52 18 178/79 (112) 94 Room Air 97.4 07/13/18 17:22 53 156/72 07/13/18 15:00 98.1 53 18 156/72 (100) 98 Room Air 98.1 07/13/18 11:08 64 134/74 (94) 07/13/18 11:08 67 115/63 (80) 07/13/18 11:07 51 132/72 (92) 07/13/18 11:00 98.1 65 18 146/89 (108) 97 Room Air 98.1 07/13/18 08:45 60 154/73 07/13/18 08:44 60 154/73 07/13/18 08:00 Room Air 07/13/18 07:00 97.9 58 18 192/99 (130) 98 Room Air 97.9 Laboratory Laboratory Laboratory Tests Test 07/13/18 16:59 07/13/18 20:29 07/14/18 06:30 07/14/18 07:49 Glucose (Fingerstick) 153 mg/dL (70-99) 214 mg/dL (70-99) 168 mg/dL (70-99) White Blood Count 7.1 x10^3/uL (4.0-11.0) Red Blood Count 4.31 x10^6/uL (4.30-5.70) Hemoglobin 12.2 g/dL (13.0-17.5) Hematocrit 35.4 % (39.0-53.0) Mean Corpuscular Volume 82 fL (79-100) Mean Corpuscular Hemoglobin 28 pg (25-35) Mean Corpuscular Hemoglobin Concent 35 g/dL (31-37) Red Cell Distribution Width 15.7 % (11.5-14.5) Platelet Count 190 x10^3/uL (140-400) Neutrophils (%) (Auto) 77 % (31-73) Lymphocytes (%) (Auto) 14 % (24-48) Monocytes (%) (Auto) 5 % (0-9) Eosinophils (%) (Auto) 3 % (0-3) Basophils (%) (Auto) 1 % (0-3) Neutrophils # (Auto) 5.5 x10^3uL (1.8-7.7) Lymphocytes # (Auto) 1.0 x10^3/uL (1.0-4.8) Monocytes # (Auto) 0.3 x10^3/uL (0.0-1.1) Eosinophils # (Auto) 0.2 x10^3/uL (0.0-0.7) Basophils # (Auto) 0.1 x10^3/uL (0.0-0.2) Sodium Level 138 mmol/L (136-145) Potassium Level 3.8 mmol/L (3.5-5.1) Chloride Level 103 mmol/L (98-107) Carbon Dioxide Level 25 mmol/L (21-32) Anion Gap 10 (6-14) Blood Urea Nitrogen 13 mg/dL (8-26) Creatinine 1.1 mg/dL (0.7-1.3) Estimated GFR (Cockcroft-Gault) 67.0 BUN/Creatinine Ratio 12 (6-20) Glucose Level 190 mg/dL (70-99) Calcium Level 9.3 mg/dL (8.5-10.1) Magnesium Level 1.8 mg/dL (1.8-2.4) Total Bilirubin 0.4 mg/dL (0.2-1.0) Aspartate Amino Transf (AST/SGOT) 26 U/L (15-37) Alanine Aminotransferase (ALT/SGPT) 32 U/L (16-63) Alkaline Phosphatase 93 U/L (46-116) Total Protein 6.9 g/dL (6.4-8.2) Albumin 3.2 g/dL (3.4-5.0) Albumin/Globulin Ratio 0.9 (1.0-1.7) Test 07/14/18 11:51 Glucose (Fingerstick) 139 mg/dL (70-99) Medication Medications Current Medications Carvedilol (Coreg) 3.125 mg BIDWMEALS PO Last administered on 07/14/18at 09:18; Start 07/13/18 at 17:00 Insulin Glargine (Lantus) 60 units BID SQ Last administered on 07/14/18at 09:27 ; Start 07/13/18 at 21:00 Insulin Human Lispro (HumaLOG) 2 units 1X ONCE SQ Last administered on at 21:13; Start 07/13/18 at 21:00; Stop 07/13/18 at 21:01; Status DC Lisinopril (Prinivil) 40 mg DAILY PO Last administered on 07/14/18at 09:19; Start 07/14/18 at 09:00 Meclizine HCl (Antivert) 25 mg PRN TID PRN PO dizziness, nausea; Start at 10:45 Comment Review of Relevant I have reviewed the following items daniel (where applicable) has been applied. TRUONG MORGAN MD Jul 14, 2018 16:30
== END 2018-07-14 17:45 | disposition home or self-care (01) | DRG 682 ==
LOC: ER 12:50 → 4 NORTH 16:30
PROVIDERS: ADMIT Internal Medicine; ATTEND Internal Medicine
DX: N17.9 Acute kidney failure, unspecified (principal); G93.41 Metabolic encephalopathy; E44.0 Moderate protein-calorie malnutrition; I16.9 Hypertensive crisis, unspecified; N39.0 Urinary tract infection, site not specified; S50.01XA Contusion of right elbow, initial encounter; W18.30XA Fall on same level, unspecified, initial encounter; E86.0 Dehydration; R00.1 Bradycardia, unspecified; I65.23 Occlusion and stenosis of bilateral carotid arteries; F32.9 Major depressive disorder, single episode, unspecified; E11.65 Type 2 diabetes mellitus with hyperglycemia; E11.22 Type 2 diabetes mellitus with diabetic chronic kidney disease; E11.42 Type 2 diabetes mellitus with diabetic polyneuropathy; N18.2 Chronic kidney disease, stage 2 (mild); I12.9 Hypertensive chronic kidney disease with stage 1 through stage 4 chronic kidney disease, or unspecified chronic kidney disease; M48.02 Spinal stenosis, cervical region; F01.50 Vascular dementia, unspecified severity, without behavioral disturbance, psychotic disturbance, mood disturbance, and anxiety; I25.10 Atherosclerotic heart disease of native coronary artery without angina pectoris; E78.5 Hyperlipidemia, unspecified; M19.019 Primary osteoarthritis, unspecified shoulder; E66.9 Obesity, unspecified; E78.00 Pure hypercholesterolemia, unspecified; E83.42 Hypomagnesemia; G30.0 Alzheimer's disease with early onset; F02.80 Dementia in other diseases classified elsewhere, unspecified severity, without behavioral disturbance, psychotic disturbance, mood disturbance, and anxiety; I65.1 Occlusion and stenosis of basilar artery; G93.89 Other specified disorders of brain; I45.10 Unspecified right bundle-branch block; D64.9 Anemia, unspecified; M19.011 Primary osteoarthritis, right shoulder; R26.2 Difficulty in walking, not elsewhere classified; R26.0 Ataxic gait; S20.211A Contusion of right front wall of thorax, initial encounter; K21.9 Gastro-esophageal reflux disease without esophagitis; Z86.73 Personal history of transient ischemic attack (TIA), and cerebral infarction without residual deficits; Y93.89 Activity, other specified; Y92.89 Other specified places as the place of occurrence of the external cause; Y99.8 Other external cause status; I25.2 Old myocardial infarction; Z79.4 Long term (current) use of insulin; Z83.3 Family history of diabetes mellitus; Z95.1 Presence of aortocoronary bypass graft; Z91.19 Patient's noncompliance with other medical treatment and regimen; Z90.49 Acquired absence of other specified parts of digestive tract; Z82.49 Family history of ischemic heart disease and other diseases of the circulatory system; Z82.3 Family history of stroke; Z87.891 Personal history of nicotine dependence; Z79.82 Long term (current) use of aspirin; Z79.02 Long term (current) use of antithrombotics/antiplatelets; Z80.9 Family history of malignant neoplasm, unspecified; Z88.0 Allergy status to penicillin; Z68.34 Body mass index [BMI] 34.0-34.9, adult
CPT/HCPCS: 99285; C8929; 36415; 70450; 71101; 72125; 73030; 73080; 80053; 81001; 82550; 82607; 82962; 83690; 83735; 83880; 84443; 84484; 85025; 85610; 85730; 87086; 90471; 90756; 93005; 96374; J1815; J3475; J7030; Q9956; 97530; Q2035

== ENCOUNTER → 2018-09-10 | Outpatient (CLI) | payer MEDICARE ==
[2018-07-14 17:50] VITALS: BP 144/91
[~2018-09-10] MED LIST changes: +INSU100C4 SQ; +INSU100V13 SQ; +PANT20TA2 PO; +PROC5TAB14 PO
--- NOTE | 2018-09-13 09:06 | RAD ---
MR#: [id number] Date of Study: 09/10/2018 Ordering Physician: GABBIE JONES, Referring Physician: GABBIE JONES, Tech: Liz Patel, PAUL, RVT, RTR APPROVED REPORT Patient Location: OUT-PATIENT Indications Uncontrolled HTN Renal Artery Doppler Right Renal Artery Left Renal Arter y Proximal 130.0/46.4 cm/secProximal 113.6/36.4 cm/sec Mid 104.5/34.5 cm/secMid 73.6/22.7 cm/sec Distal 75.4/32.7 cm/secDistal 93.6/29.1 cm/sec Renal/Aorta Ratio 0.00Renal/Aorta Ratio 0.00 Prox. Resistive Index 0.64Prox. Resistive Index 0.68 Mid Resistive Index 0.67Mid Resistive Index 0.69 Distal Resistive Index 0.57Distal Resistive Index 0.69 Rt. Segmental A. 20.5/7.7 cm/secLt. Segmental A. Renal Measurements RightLeft Kidney Spvwdi46.36 cm 5.81 cmKidney Opmxsm96 cm 5.81 cm Right Additional FindingsLeft Additional Findings Aortic Doppler VelocityWaveform Proximal Aorta 99.1 cm/sec Findings Grayscale images of the bilateral kidneys reveal mild to moderate hypertrophy. The right kidney measu res 14.4 cm in length and the left kidney measures 12.9 cm. There is bilateral renal cortical hypertr ophy. Spectral waveforms in the aorta reveal normal velocities. There are normal renal to aortic ratios. In cidental finding is made of a infrarenal abdominal aortic aneurysm measuring approximately 4.3 to 4.4 cm in greatest diameter. The proximal, mid and distal renal arteries bilaterally demonstrate normal velocity patterns. The stefany ateral renal veins were not well visualized. Critical Notification Critical Value: No <Conclusion> 1. No significant renal artery stenosis. 2. Incidental finding of a abdominal aortic aneurysm (presumed infrarenal) measuring a proximally 4.4 cm in greatest diameter, recommend dedicated CT abdomen and pelvis to evaluate for exact size of ane urysm. Signed by : Peter Grissom, Electronically Approved : 09/13/2018 09:04:59
== END | disposition home or self-care (01) ==
LOC: US 11:23
PROVIDERS: ATTEND Internal Medicine Cardiovascular Disease
DX: I12.9 Hypertensive chronic kidney disease with stage 1 through stage 4 chronic kidney disease, or unspecified chronic kidney disease (principal); E11.22 Type 2 diabetes mellitus with diabetic chronic kidney disease; N18.2 Chronic kidney disease, stage 2 (mild)
CPT/HCPCS: 76770

== ENCOUNTER → 2018-09-24 | Outpatient (CLI) | payer MEDICARE ==
[2018-07-14 17:50] VITALS: BP 144/91
[~2018-09-24] MED LIST changes: -OXYC-323 PO; +OXYC1TAB15 PO
--- NOTE | 2018-09-24 14:22 | CARD ---
MR#: [id number] Date of Study: 09/24/2018 Ordering Physician: GABBIE ROBISON, Referring Physician: GABBIE ROBISON, Tech: APPROVED REPORT PROCEDURE: Successful implantation of [employer] Confirm loop recorder INDICATIONS: Syncope of uncertain etiology PROCEDURE DETAILS: An informed consent was obtained from patient. Patient was brought to the procedure suite and her le ft chest and shoulder were prepped and draped in the usual fashion. 20 mL of 2% lidocaine was infilt rated into the skin and subcutaneous tissues for local anesthesia. An incision was made in the left third intercostal space 1 inch from midsternal line and using the introducer provided with the kit a track was created in subcutaneous tissue. Subsequently,a [employer] Confirm loop recorder serial num [id number] was placed in the subcutaneous tissue. Hemostasis was secured. Patient tolerated the p rocedure well. There were no immediate complications. CONCLUSION: Successful implantation of [employer] Confirm loop recorder for syncope of uncertain etiology Signed by : Gabbie Robison, Electronically Approved : 09/24/2018 14:22:03
== END | disposition home or self-care (01) ==
LOC: LINQ 12:57
PROVIDERS: ATTEND Internal Medicine Cardiovascular Disease
DX: R55 Syncope and collapse (principal); Z88.0 Allergy status to penicillin; Z79.82 Long term (current) use of aspirin; Z79.899 Other long term (current) drug therapy
CPT/HCPCS: 33282; C1764

== ENCOUNTER → 2018-10-01 | Outpatient (CLI) | payer MEDICARE ==
[2018-07-14 17:50] VITALS: BP 144/91
[~2018-10-01] MED LIST changes: +CONTRAST GIVEN. MC PRN; -GABA-586 PO; +GABA300C18 PO; +IOHEXOL 300 MG/ML 100ML VIAL. IV ONE
[2018-10-01 09:25] LABS: CREATININE 1.3 mg/dL (0.7-1.3); GFR 55.2
--- NOTE | 2018-10-01 14:19 | RAD ---
CTA abdomen and pelvis without with contrast 10/01/2018 Clinical indications: Abdominal aortic aneurysm evaluation. COMPARISON: Ultrasound 09/10/2018. TECHNIQUE: Multiple CTA images of the abdomen and pelvis were obtained without and following the intravenous administration of 80 mL Omnipaque 300. MIPS were obtained of the abdomen and pelvis. *One or more of the following individualized dose reduction techniques were utilized for this examination: 1. Automated exposure control. 2. Adjustment of the mA and/or kV according to patient size. 3. Use of iterative reconstruction technique. FINDINGS: Vascular: Heart size is normal. Coronary artery calcifications are noted. Fusiform infrarenal abdominal aortic aneurysm measuring 4.5 x 4.1 cm. Moderate mixed aorta atheromatous plaque. Mixed plaque at the origin of celiac resulting in estimated 50% stenosis. Incidental note is made of an accessory left hepatic from the left gastric. Superior mesenteric artery origin stent. There is moderate soft plaque distal to the stent over a 2.5 cm segment resulting in 50% stenosis. Soft plaque at the origin of the main right renal artery resulting in short segment 70% stenosis. There is a prominent accessory right renal artery supplying the inferior pole which is widely patent. Soft plaque at the origin of the main left renal artery resulting in estimated 50% stenosis. Mixed plaque at the origin of the inferior mesenteric artery with distal patency. Normal caliber right common iliac artery with moderate mixed plaque and no significant high-grade narrowing. Scattered predominantly soft plaque of the right internal iliac artery without high-grade narrowing. Scattered mixed plaque of the right external iliac artery without high-grade narrowing. Moderate soft plaque at the origin of the right superficial femoral artery resulting in estimated 50% stenosis. Normal caliber left common iliac artery with moderate mixed plaque resulting in a short segment of less than 50% stenosis. Soft plaque at the origin of the left internal iliac artery resulting in 70% ostial stenosis with distal patency. Mild mixed plaque of the left external iliac artery and origin of the superficial femoral artery without high-grade narrowing. Nonvascular: Examination limited due to phase of contrast timing. Liver contour or unremarkable. Cholecystectomy. Spleen, adrenal glands, pancreas and kidneys are unremarkable. 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 No retroperitoneal lymphadenopathy. Small and large bowel loops are normal in caliber without obstruction. Mild distal colonic diverticulosis without diverticulitis. Appendix is normal in appearance. No abdominal free fluid. No pneumoperitoneum. Urinary bladder, prostate seminal vesicles are unremarkable. No iliac or inguinal lymphadenopathy. There are no destructive osseous lesions. IMPRESSION: Vascular: 1. Infrarenal abdominal aortic aneurysm measuring up to 4.5 cm. 2. Superior mesenteric origin stent with distal soft plaque resulting in 50% stenosis. 3. Soft plaque resulting in estimated 70% stenosis of the origin main right renal artery. Electronically signed by: Abdiel Méndez MD (10/01/2018 2:15 PM) [id number]
== END | disposition home or self-care (01) ==
LOC: CT 08:37
PROVIDERS: ATTEND Internal Medicine Cardiovascular Disease
DX: I71.4 Abdominal aortic aneurysm, without rupture (principal); I70.1 Atherosclerosis of renal artery; K57.30 Diverticulosis of large intestine without perforation or abscess without bleeding; I25.10 Atherosclerotic heart disease of native coronary artery without angina pectoris; Z90.49 Acquired absence of other specified parts of digestive tract
CPT/HCPCS: 36415; 74174; 82565; Q9967

== ENCOUNTER 2018-11-05 09:09 | Observation (INO) | payer MEDICARE ==
[~2018-11-05] VITALS: Ht 177.8 cm; Wt 117.0 kg
[2018-11-05] VITALS (20 sets, daily range): BP systolic 111–226; BP diastolic 61–106
[~2018-11-05 09:09] MED LIST changes: -CONTRAST GIVEN. MC PRN; +IODIXANOL 320 MG/ML 100 ML VIAL. ONE; -IOHEXOL 300 MG/ML 100ML VIAL. IV ONE; +LIDOCAINE 1% PF 30 ML VIAL. ONE
[2018-11-05 09:35] LABS: HEMATOCRIT 37.9 % (39.0-53.0); HEMOGLOBIN 13.5 g/dL (13.0-17.5); RED BLOOD COUNT 4.7 x10^6/uL (4.30-5.70); RED CELL DISTRIBUTION WIDTH 16.4 % (11.5-14.5); WHITE BLOOD COUNT 7.3 x10^3/uL (4.0-11.0)
[2018-11-05 09:45] LABS: CALCIUM 9.5 mg/dL (8.5-10.1); CREATININE 1.4 mg/dL (0.7-1.3); GFR 50.7; POTASSIUM 4.6 mmol/L (3.5-5.1)
[2018-11-05 09:46] LABS: PROTHROMBIN TIME PATIENT 13.6 SEC (11.7-14.0)
[2018-11-05] MEDS ORDERED: INSULIN LISPRO 100 UNIT/ML 3ML VIAL. SQ ONE (10:30)
[2018-11-05] MEDS ORDERED: MIDAZOLAM HCL/PF 2 MG/2 ML VIAL. ONE (10:35)
[2018-11-05] MEDS ORDERED: fentaNYL PF VIAL 100 MCG/2 ML VIAL ONE (10:35)
[2018-11-05] MEDS ORDERED: IODIXANOL 320 MG/ML 100 ML VIAL. IART ONE (11:00)
[2018-11-05] MEDS ORDERED: MIDAZOLAM HCL/PF 2 MG/2 ML VIAL. IV ONE ×2 (11:00→12:45)
[2018-11-05] MEDS ORDERED: fentaNYL PF VIAL 100 MCG/2 ML VIAL IV ONE ×2 (11:00→12:45)
[2018-11-05] MEDS ORDERED: LIDOCAINE 1% PF 30 ML VIAL. INJ ONE (11:00)
[2018-11-05] MEDS ORDERED: IODIXANOL 320 MG/ML 100 ML VIAL. ONE ×2 (11:07→11:57)
[2018-11-05] MEDS ORDERED: CONTRAST GIVEN. MC PRN (11:15)
[2018-11-05] MEDS ORDERED: HEPARIN for IV BOLUS 10,000 UNIT/10 ML VIAL. ONE (11:46)
[2018-11-05] MEDS ORDERED: HEPARIN for IV BOLUS 10,000 UNIT/10 ML VIAL. IV ONE (12:00)
[2018-11-05] MEDS: IV NORMAL SALINE 1000ML BAG 1,000 ML IV SCH ×2 (12:00→20:48)
[2018-11-05] MEDS ORDERED: CLOPIDOGREL BISULFATE 75 MG TABLET PO ONE (12:15)
[2018-11-05] MEDS: IV 1/2 NORMAL SALINE 1,000 ML IV SCH ×2 (12:44→22:44)
--- NOTE | 2018-11-05 12:44 | PDOC ---
MODERATE SEDATION ASSESSMENT RISKS/ALTERNATIVES Risks/Alternatives Risks and alternatives of this type of sedation and procedure discussed with: RISK/ALTERNATIVES: Patient H & P ON CHART H & P H & P on chart and reviewed for co-morbid conditions and appropriate labs. H&P ON CHART: Yes STATUS PREG STATUS ASSESSED: N/A MEDS/ALLERGIES REVIEWED Meds/Allergies Reviewed Medications and Allergies including time and route of recently administered narcotics and sedatives. MEDS/ALLERGIES REVIEWED: Yes ASA RATING ASA RATING: II AIRWAY ASSESSMENT Airway Assessment Airway patency, oral function limitations, presence of caps, crowns, dentures, partials, and ability to extend neck assessed. AIRWAY ASSESSMENT: Yes MALLAMPATI SCORE MALLAMPATI SCORE: II PRE-SEDATION ASSESSMENT PRE-SEDATION ASSESSMENT: Yes GABBIE JONES MD Nov 05, 2018 12:44
[2018-11-05] MEDS ORDERED: NITROGLYCERIN SUBLINGUAL 0.4 MG BOTTLE OF 25. SL PRN (12:45)
[2018-11-05] MEDS ORDERED: ACETAMINOPHEN 325 MG TABLET. PO PRN (12:45)
--- NOTE | 2018-11-05 12:59 | CARD ---
MR#: [id number] Date of Study: 11/05/2018 Ordering Physician: GABBIE ROBISON, Referring Physician: GABBIE ROBISON, Tech: APPROVED REPORT Procedure(s) performed: 1. Aortogram, bilateral selective renal angiography 2. Successful LAW OFFICE ASSISTANT/stents placement to right main renal artery, right accessory renal artery and also the left renal artery. 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 PROCEDURE NARRATIVE After explaining the risks, benefits and alternative options, informed consent was obtained from babs ent. Patient was brought to the cardiac Pilot Instructor and his right groin was prepped and draped in the us ual fashion. 20 mL of 2% lidocaine was infiltrated into the skin and subcutaneous tissues for local a nesthesia. Arterial access was obtained in the right common femoral artery and a 6 Ghanaian sheath was inserted. 6 Ghanaian pigtail catheter was positioned in the descending aorta and an aortogram was perfo rmed to identify the takeoff of renal arteries. Subsequently, a 6 Ghanaian JR4 catheter was used to sunshine ectively engage the right main and accessory renal arteries and left main renal artery and selective angiography was performed. The following findings were noted. FINDINGS 1. Infrarenal abdominal aortic aneurysm that was measured at 4.[address] angiography 2. The right kidney is supplied by one main renal artery and an accessory renal artery, both of whic h were large caliber vessels. Both these vessels showed 90% proximal segment stenoses. 3. The left kidney is supplied by one left main renal artery that showed 90% stenosis involving the ostial/proximal segment. INTERVENTION The right main renal artery was engaged with a 6 Ghanaian JR4 guide catheter and the stenosis in the pr oximal segment was crossed with a 0.014 inch [employer] water guidewire. This was predilated with a 4. 0 x 12 mm trek balloon following which this was successfully treated with a 5.0 x 15 mm Palmaz Blue c obalt-chromium stent. Subsequently, the left main renal artery was engaged with the same guide keyur ter, the lesion in the proximal segment crossed with the same guidewire, predilated with a 4.0 x 12 m m trek balloon and successfully treated with a 5.0 x 18 mm Palmaz Blue stent. Finally, the right acce ssory renal artery was engaged with the same guide catheter, the lesion in the proximal segment cross ed with the same guidewire, predilated with the 4.0 x 12 mm trek balloon and successfully treated wit h 5.0 x 15 mm Herculink elite cobalt-chromium stent. This was postdilated with a 5.0 x 12 mm noncompl iant [place] trek balloon. Final angiography of all the vessels showed resolution of the stenoses with goo d distal flow. Patient tolerated the procedure well. Hemostasis in the right groin was achieved using mynx closure device. There were no immediate complications. Conclusion 1. Significant stenoses involving the right main and accessory renal arteries both of which are larg e caliber vessels and also the left main renal artery. 2. Successful LAW OFFICE ASSISTANT/stents placement to the right main and accessory renal arteries and the left renal artery. Signed by : Gabbie Robison, Electronically Approved : 11/05/2018 12:57:31
[2018-11-05] MEDS ORDERED: PROCHLORPERAZINE 5 MG TABLET. PO PRN (18:00)
[2018-11-05] MEDS: LISINOPRIL 20 MG TABLET PO SCH (20:47)
[2018-11-05] MEDS: CARVEDILOL 6.25 MG TABLET. PO SCH (20:47)
[2018-11-05] MEDS: INSULIN GLARGINE 300 UNITS/3 ML INSULN.PEN. SQ SCH (20:57)
[2018-11-05] MEDS ORDERED: GABAPENTIN 300 MG CAPSULE. PO SCH (21:00)
[2018-11-05] MEDS ORDERED: ATORVASTATIN CALCIUM 40 MG TABLET. PO SCH (21:00)
[2018-11-05] MEDS ORDERED: SERTRALINE 50 MG TABLET. PO SCH (21:00)
[2018-11-05] MEDS ORDERED: LABETALOL 20 MG/4 ML DISP.SYRIN. IVP PRN (23:15)
--- NOTE | 2018-11-06 00:18 | NUR ---
EMAR cleanup. Fentanyl and Versed charted as "non administered" at this time to clean up the MAR to avoid confusion. These were meds ordered by mason tender restoration labor that were not charted on. I did not give these medications.
[2018-11-06 03:36] VITALS: BP 140/58
[2018-11-06 07:00] VITALS: BP 169/64
[2018-11-06 07:01] LABS: BASO # 0.1 x10^3/uL (0.0-0.2); BASO % 1 % (0-3); EOS # 0.3 x10^3/uL (0.0-0.7); EOS % 4 % (0-3); HEMATOCRIT 34.8 % (39.0-53.0); HEMOGLOBIN 12.2 g/dL (13.0-17.5); LYMPH % 13 % (24-48); MEAN CORPUSCULAR HEMOGLOBIN 28 pg (25-35); MEAN CORPUSCULAR HGB CONC 35 g/dL (31-37); MEAN CORPUSCULAR VOLUME 80 fL (79-100); MONO # 0.3 x10^3/uL (0.0-1.1); MONO % 4 % (0-9); NEUT % 77 % (31-73); PLATELET COUNT 171 x10^3/uL (140-400); RED BLOOD COUNT 4.37 x10^6/uL (4.30-5.70); RED CELL DISTRIBUTION WIDTH 16.2 % (11.5-14.5); WHITE BLOOD COUNT 7.8 x10^3/uL (4.0-11.0)
[2018-11-06 07:14] LABS: CALCIUM 8.9 mg/dL (8.5-10.1); CREATININE 1.2 mg/dL (0.7-1.3); GFR 60.6; POTASSIUM 3.8 mmol/L (3.5-5.1)
[2018-11-06] MEDS ORDERED: PANTOPRAZOLE 40 MG TABLET.DR. PO SCH (07:30)
[2018-11-06] MEDS ORDERED: CLOPIDOGREL BISULFATE 75 MG TABLET PO SCH (08:00)
[2018-11-06] MEDS: IV NORMAL SALINE 1000ML BAG 1,000 ML IV SCH (08:16)
[2018-11-06] MEDS: IV 1/2 NORMAL SALINE 1,000 ML IV SCH (08:17)
[2018-11-06] MEDS: LISINOPRIL 20 MG TABLET PO SCH (08:21)
[2018-11-06] MEDS: CARVEDILOL 6.25 MG TABLET. PO SCH (08:22)
[2018-11-06] MEDS: INSULIN GLARGINE 300 UNITS/3 ML INSULN.PEN. SQ SCH (08:26)
[2018-11-06] MEDS: INSULIN LISPRO 300 UNITS/3 ML INSULN.PEN. SQ SCH ×2 (08:26→12:38)
[2018-11-06] MEDS ORDERED: hydroCHLOROthiazide 12.5 MG CAPSULE PO SCH (09:00)
[2018-11-06] MEDS ORDERED: ASPIRIN 325 MG TABLET PO SCH (09:00)
[2018-11-06] MEDS ORDERED: LISINOPRIL 20 MG TABLET PO SCH (09:00)
[2018-11-06 11:14] VITALS: BP 105/58
--- NOTE | 2018-11-06 12:31 | PDOC3 ---
Discharge Summary Visit Information Date of Admission: Nov 05, 2018 Date of Discharge: Nov 06, 2018 Admitting Diagnosis: Renovascular hypertension and renal artery senosis Final Diagnosis Renal artery stenosis Hypertension Coronary artery disease Diabetes mellitus type 2 Chronic kidney disease Brief Hospital Course Allergies Allergies Coded Allergies Type Severity Reaction Last Updated Verified Penicillins Allergy Severe hives, itching, swelling 05/25/18 Yes Vital Signs Vital Signs Date Time Temp Pulse Resp B/P (MAP) Pulse Ox O2 Delivery O2 Flow Rate FiO2 11/06/18 11:14 98.2 63 18 105/58 (74) 97 Room Air 98.2 11/05/18 12:26 2.0 Lab Results Laboratory Tests Test 11/05/18 09:20 11/05/18 17:39 11/05/18 20:50 11/06/18 06:15 White Blood Count 7.3 x10^3/uL (4.0-11.0) 7.8 x10^3/uL (4.0-11.0) Red Blood Count 4.70 x10^6/uL (4.30-5.70) 4.37 x10^6/uL (4.30-5.70) Hemoglobin 13.5 g/dL (13.0-17.5) 12.2 g/dL (13.0-17.5) Hematocrit 37.9 % (39.0-53.0) 34.8 % (39.0-53.0) Mean Corpuscular Volume 81 fL (79-100) 80 fL (79-100) Mean Corpuscular Hemoglobin 29 pg (25-35) 28 pg (25-35) Mean Corpuscular Hemoglobin Concent 36 g/dL (31-37) 35 g/dL (31-37) Red Cell Distribution Width 16.4 % (11.5-14.5) 16.2 % (11.5-14.5) Platelet Count 201 x10^3/uL (140-400) 171 x10^3/uL (140-400) Prothrombin Time 13.6 SEC (11.7-14.0) Prothromb Time International Ratio 1.1 (0.8-1.1) Sodium Level 135 mmol/L (136-145) 134 mmol/L (136-145) Potassium Level 4.6 mmol/L (3.5-5.1) 3.8 mmol/L (3.5-5.1) Chloride Level 98 mmol/L (98-107) 100 mmol/L (98-107) Carbon Dioxide Level 27 mmol/L (21-32) 25 mmol/L (21-32) Anion Gap 10 (6-14) 9 (6-14) Blood Urea Nitrogen 26 mg/dL (8-26) 17 mg/dL (8-26) Creatinine 1.4 mg/dL (0.7-1.3) 1.2 mg/dL (0.7-1.3) Estimated GFR (Cockcroft-Gault) 50.7 60.6 Glucose Level 343 mg/dL (70-99) 223 mg/dL (70-99) Calcium Level 9.5 mg/dL (8.5-10.1) 8.9 mg/dL (8.5-10.1) Glucose (Fingerstick) 219 mg/dL (70-99) 204 mg/dL (70-99) Neutrophils (%) (Auto) 77 % (31-73) Lymphocytes (%) (Auto) 13 % (24-48) Monocytes (%) (Auto) 4 % (0-9) Eosinophils (%) (Auto) 4 % (0-3) Basophils (%) (Auto) 1 % (0-3) Neutrophils # (Auto) 6.0 x10^3uL (1.8-7.7) Lymphocytes # (Auto) 1.0 x10^3/uL (1.0-4.8) Monocytes # (Auto) 0.3 x10^3/uL (0.0-1.1) Eosinophils # (Auto) 0.3 x10^3/uL (0.0-0.7) Basophils # (Auto) 0.1 x10^3/uL (0.0-0.2) Test 11/06/18 07:39 11/06/18 12:08 Glucose (Fingerstick) 198 mg/dL (70-99) 148 mg/dL (70-99) Laboratory Tests Test 11/05/18 17:39 11/05/18 20:50 11/06/18 06:15 11/06/18 07:39 Glucose (Fingerstick) 219 mg/dL (70-99) 204 mg/dL (70-99) 198 mg/dL (70-99) White Blood Count 7.8 x10^3/uL (4.0-11.0) Red Blood Count 4.37 x10^6/uL (4.30-5.70) Hemoglobin 12.2 g/dL (13.0-17.5) Hematocrit 34.8 % (39.0-53.0) Mean Corpuscular Volume 80 fL (79-100) Mean Corpuscular Hemoglobin 28 pg (25-35) Mean Corpuscular Hemoglobin Concent 35 g/dL (31-37) Red Cell Distribution Width 16.2 % (11.5-14.5) Platelet Count 171 x10^3/uL (140-400) Neutrophils (%) (Auto) 77 % (31-73) Lymphocytes (%) (Auto) 13 % (24-48) Monocytes (%) (Auto) 4 % (0-9) Eosinophils (%) (Auto) 4 % (0-3) Basophils (%) (Auto) 1 % (0-3) Neutrophils # (Auto) 6.0 x10^3uL (1.8-7.7) Lymphocytes # (Auto) 1.0 x10^3/uL (1.0-4.8) Monocytes # (Auto) 0.3 x10^3/uL (0.0-1.1) Eosinophils # (Auto) 0.3 x10^3/uL (0.0-0.7) Basophils # (Auto) 0.1 x10^3/uL (0.0-0.2) Sodium Level 134 mmol/L (136-145) Potassium Level 3.8 mmol/L (3.5-5.1) Chloride Level 100 mmol/L (98-107) Carbon Dioxide Level 25 mmol/L (21-32) Anion Gap 9 (6-14) Blood Urea Nitrogen 17 mg/dL (8-26) Creatinine 1.2 mg/dL (0.7-1.3) Estimated GFR (Cockcroft-Gault) 60.6 Glucose Level 223 mg/dL (70-99) Calcium Level 8.9 mg/dL (8.5-10.1) Test 11/06/18 12:08 Glucose (Fingerstick) 148 mg/dL (70-99) Brief Hospital Course Mr. Benson is a 68 old male with resistant hypertension and renal artery stenosis presented for selective bilateral renal angiography. He was found to have 90% stenoses involving right main and accessory renal arteries and left main renal artery. He underwent successful ASSISTANT PROGRAM MANAGER/stent placement with excellent results. He was hemodynamically stable and his right groin looked good at the time of discharge. He will follow-up with our office in 1 month. Discharge Information Condition at Discharge: Stable Follow Up: Months (one) Disposition/Orders: D/C to Home Scheduled Aspirin (Aspirin) 325 Mg Tablet, 1 TAB PO DAILY, #90 Ref 3 (Reported) Entered as Reported by: VERENA CAMPBELL on 02/15/15 1426 Last Taken: Unknown Dose on 11/04/18 Last Action: Continued on 11/05/181754 by MICHAEL LUND Atorvastatin Calcium (Lipitor) 40 Mg Tablet, 1 TAB PO QHS, #90 Ref 1 (Reported) Entered as Reported by: MENDEZ HILL on 10/01/17 1000 Last Taken: Unknown Dose on 11/04/18 Last Action: Continued on 11/05/181754 by MICHAEL LUND Carvedilol (Coreg ) 6.25 Mg Tablet, 1 TAB PO BID, #180 Ref 1 (Reported) Entered as Reported by: MENDEZ HILL on 10/01/17 1000 Last Taken: Unknown Dose on 11/05/18 0700 Last Action: Continued on 1754 by MICHAEL LUND Clopidogrel Bisulfate (Plavix) 75 Mg Tablet, 75 MG PO DAILYWBKFT, #30 Prescribed by: MARCIAL THOMASON on 02/24/15 0813 Last Taken: Unknown Dose on 11/04/18 Last Action: Continued on 11/05/181754 by MICHAEL LUND Gabapentin (Gabapentin ) 300 Mg Capsule, 300 MG PO HS, (Reported) Entered as Reported by: MENDEZ HILL on 10/01/17 1000 Last Taken: Unknown Dose on 11/04/18 Last Action: Continued on 11/05/181754 by MICHAEL LUND Hydrochlorothiazide (Hydrochlorothiazide Tablet) 12.5 Mg Tablet, 1 TAB PO DAILY , #30 Ref 5 (Reported) Entered as Reported by: MENDEZ HILL on 10/01/17 1000 Last Taken: Unknown Dose on 11/04/18 Last Action: Converted on 11/05/181754 by MICHAEL LUND Insulin Aspart (Novolog) 100 Unit/1 Ml Cartridge, 25 UNIT SQ TID, (Reported) Entered as Reported by: VANDANA SHAH on 07/12/181814 Last Taken: Unknown Dose on 11/04/18 Last Action: Converted on 11/05/181754 by MICHAEL LUND Insulin Detemir (Levemir) 100 Unit/1 Ml Vial, 45 UNIT SQ BID, (Reported) Entered as Reported by: VANDANA SHAH on 07/12/181814 Last Taken: 25 units on 11/04/18 Last Action: Converted on 11/05/181754 by MICHAEL LUND Lisinopril (Lisinopril) 20 Mg Tablet, 20 MG PO DAILY for FOR HYPERTENSION, #30 Ref 0 (Reported) Entered as Reported by: VERENA CAMPBELL on 02/15/15 142 Last Taken: Unknown Dose on 11/04/18 Last Action: Continued on 11/05/181754 by MICHAEL LUND Pantoprazole Sodium (Protonix) 20 Mg Tablet.dr, 40 MG PO DAILY, (Reported) Entered as Reported by: VANDANA SHAH on 07/12/181814 Last Taken: Unknown Dose on 11/04/18 Last Action: Converted on 11/05/181754 by MICHAEL LUND Sertraline Hcl (Zoloft) 100 Mg Tablet, 1 TAB PO HS, #30 Ref 5 (Reported) Entered as Reported by: SIVA GREEN on 05/25/18 0147 Last Taken: Unknown Dose on 11/04/18 Last Action: Converted on 11/05/181754 by MICHAEL LUND Scheduled PRN Prochlorperazine Maleate (Prochlorperazine Maleate) 10 Mg Tablet, 1 TAB PO PRN QID PRN for NAUSEA/VOMITING, #30 Ref 3 (Reported) Entered as Reported by: VANDANA SHAH on 07/12/181904 Last Taken: UNKNOWN on Unknown Date & Time Last Action: Continued on 11/05 by GABBIE YAÑEZ MD Nov 06, 2018 12:31
== END 2018-11-06 14:02 | disposition home or self-care (01) ==
LOC: CCL 09:09 → 2 SOUTH 11:40
PROVIDERS: ADMIT Internal Medicine Cardiovascular Disease; ATTEND Internal Medicine Cardiovascular Disease
DX: I15.0 Renovascular hypertension (principal); I70.1 Atherosclerosis of renal artery; I25.10 Atherosclerotic heart disease of native coronary artery without angina pectoris; R55 Syncope and collapse; I65.29 Occlusion and stenosis of unspecified carotid artery; E11.22 Type 2 diabetes mellitus with diabetic chronic kidney disease; I12.9 Hypertensive chronic kidney disease with stage 1 through stage 4 chronic kidney disease, or unspecified chronic kidney disease; N18.9 Chronic kidney disease, unspecified; E78.5 Hyperlipidemia, unspecified; K21.9 Gastro-esophageal reflux disease without esophagitis; Z95.1 Presence of aortocoronary bypass graft; Z98.890 Other specified postprocedural states; F17.200 Nicotine dependence, unspecified, uncomplicated; Q27.2 Other congenital malformations of renal artery
CPT/HCPCS: 36252; 36415; 37236; 37237; 80048; 82962; 85025; 85027; 85610; 96372; 96374; 96375; C1713; C1725; C1769; C1876; C1887; C1892; G0269; G0378; G0379; J1644; J1815; J2250; J3010; J3490; J7030; 99152; 99153

== ENCOUNTER → 2019-02-11 | Outpatient (CLI) | payer MEDICARE ==
[~2019-02-11] MED LIST changes: -IODIXANOL 320 MG/ML 100 ML VIAL. ONE; +IOHEXOL 350 MG/ML 100 ML VIAL. IV ONE; -LIDOCAINE 1% PF 30 ML VIAL. ONE
--- NOTE | 2019-02-11 11:49 | RAD ---
CTA of the abdomen and pelvis with and without contrast Clinical indications: Abdominal aortic aneurysm. Follow-up study. COMPARISON: October 01, 2018. TECHNIQUE: Noncontrast helical CT scanning of the abdomen and pelvis was performed. After IV infusion of 90 cc of Omnipaque 350, repeat helical CT scanning of the abdomen and pelvis was performed. Multiplanar 2-D reconstructions were generated. Using a MIP algorithm, a 3-D reconstructed CT angiogram of the abdominal aorta was performed. PQRS compliance Statement One or more of the following individualized dose reduction techniques were utilized for this study: 1. Automated exposure control 2. Adjustment of the mA and/or kV according to patient size 3. Use of iterative reconstruction technique FINDINGS: Again seen is an infrarenal abdominal aortic aneurysm. The aneurysm measures 4.7 cm in greatest AP dimension and 4.5 cm in greatest transverse dimension. The aneurysm measures 8.5 cm in greatest vertical dimension. Aneurysm has not changed in size. No intimal flap or displacement of calcified plaque is evident. Therefore no dissection is seen. No occlusive disease is evident. Again seen is superior mesenteric arterial stent with soft plaque formation distal to the stent resulting in at least a 50% segmental stenosis.Since the previous study, bilateral main renal arterial stents have been placed. An accessory inferior right renal artery is seen which has also been stented in the interim. 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 The inferior mesenteric artery is patent. Again seen is calcified and soft plaque formation involving the iliac arteries as previously discussed on October 01, 2018 and is unchanged. No hepatic mass is seen. The spleen measures 14 cm in length which is mildly enlarged but stable. The pancreas is normal. The gallbladder is surgically absent. No extra hepatic biliary ductal dilatation is seen. No adrenal mass is evident. No renal mass is evident. No hydronephrosis or hydroureter is evident. Urinary bladder wall is smooth. No enlarged abdominal or pelvic lymphadenopathy is evident. Terminal ileum is unremarkable. The appendix is normal. No obstructive bowel pattern is evident. No free air or free fluid or mesenteric edema is seen. Calcified granuloma of the right lung base is seen. No lytic process is evident. IMPRESSION: No change in size of infrarenal abdominal aortic aneurysm from the previous study. Since the previous study, there has been placement of bilateral renal arterial stents including the accessory inferior right renal artery. Again seen is a superior mesenteric arterial stent with a segmental (at least 50%) stenosis of the SMA distal to the stent. This is unchanged. 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 Calcified and soft plaque formation and stenosis of the iliac arteries previously discussed is unchanged. Stable mild splenomegaly. Electronically signed by: Haroon Mejia MD (02/11/2019 11:46 AM) [id number]
== END | disposition home or self-care (01) ==
LOC: CT 08:04
PROVIDERS: ATTEND Internal Medicine Cardiovascular Disease
DX: I77.4 Celiac artery compression syndrome (principal); I70.8 Atherosclerosis of other arteries; R16.1 Splenomegaly, not elsewhere classified; I25.10 Atherosclerotic heart disease of native coronary artery without angina pectoris; I71.4 Abdominal aortic aneurysm, without rupture; Z95.828 Presence of other vascular implants and grafts; Z87.891 Personal history of nicotine dependence
CPT/HCPCS: 74174; Q9967

== ENCOUNTER → 2019-07-15 | Outpatient (CLI) | payer MEDICARE ==
[2019-07-08 09:31] VITALS: BP 119/71
[~2019-07-15] MED LIST changes: +ACET325T9 PO; +Fluconazole PO; +HYDR-2765 PO; +HYDR-2868 PO; +INSU100V SQ; -IOHEXOL 350 MG/ML 100 ML VIAL. IV ONE; +LACT1CAP19 PO; +LINE600T37 PO; +MERO500V15 IV; -PANT40TA3 PO; +PANT40TA77 PO
--- NOTE | 2019-07-15 14:32 | CARD ---
MR#: [id number] Date of Study: 07/15/2019 Ordering Physician: GABBIE JONES, Referring Physician: GABBIE JONES Tech: Christy Viramontes RDCS APPROVED REPORT EXAM: Two-dimensional and M-mode echocardiogram with Doppler and color Doppler. Other Information Quality : Technically Limited Technically limited study due to body habitus. INDICATION Cardiac Disease: CAD Surgery/Intervention CABG: Date: 2013 2D DIMENSIONS RVDd3.2 (2.9-3.5cm)Left Atrium(2D)3.9 (1.6-4.0cm) IVSd0.9 (0.7-1.1cm)Aortic Root(2D)3.2 (2.0-3.7cm) LVDd5.3 (3.9-5.9cm)LVOT Diameter2.2 (1.8-2.4cm) PWd1.0 (0.7-1.1cm)LVDs3.9 (2.5-4.0cm) FS (%) 27.3 %SV71.4 ml LVEF(%)52.6 (>50%) Aortic Valve AoV Peak Grzegorz.102.5cm/sAoV VTI21.6cm AO Peak GR.4.2mmHgLVOT Peak Grzegorz.111.2cm/s AO Mean GR.2mmHgAVA (VMAX)4.05cm2 FABIAN (VTI)4.00cm2 Mitral Valve MV E Ozekkyho148.5cm/sMV DECEL YJDJ357ji MV A Jbancmmt06.8cm/sE/A Ratio1.8 Tricuspid Valve TR P. Gbndhiuc150ki/sRAP JGBOPCLC1swYr TR Peak Gr.47mgAlNEEC45tlTd Pulmonary Vein S1 Mynrthcq76.9cm/sD2 Dzdnwzlw41.3cm/s LEFT VENTRICLE The left ventricle is normal size. There is normal left ventricular wall thickness. Left ventricle sy stolic function is low normal. The Ejection Fraction is 50-55%. There is normal LV segmental wall mot ion. Septal motion suggestive of prior CABG Transmitral Doppler flow pattern is Grade II-pseudonormal filling dynamics. RIGHT VENTRICLE The right ventricle is normal size. The right ventricular systolic function is normal. ATRIA The left atrium size is normal. The right atrium size is normal. The interatrial septum is intact wit h no evidence for an atrial septal defect or patent foramen ovale as noted on 2-D or Doppler imaging. AORTIC VALVE The aortic valve is calcified but opens well. Doppler and Color Flow revealed no significant aortic r egurgitation. There is no significant aortic valvular stenosis. MITRAL VALVE The mitral valve is calcified but opens well. There is no evidence of mitral valve prolapse. There is no mitral valve stenosis. Doppler and Color Flow revealed no mitral valve regurgitation noted. TRICUSPID VALVE The tricuspid valve is normal in structure and function. Doppler and Color Flow revealed trace tricus pid regurgitation. There is mild pulmonary hypertension. The PA pressure was estimated at 31 mmHg. Th ere is no tricuspid valve stenosis. PULMONIC VALVE The pulmonic valve is not well visualized. Doppler and Color Flow revealed no significant pulmonic va lvular regurgitation. There is no pulmonic valvular stenosis. GREAT VESSELS The aortic root is normal in size. The ascending aorta is normal in size. The IVC is normal in size a nd collapses >50% with inspiration. PERICARDIAL EFFUSION There is no evidence of significant pericardial effusion. Critical Notification Critical Value: No <Conclusion> Left ventricle systolic function is low normal. The Ejection Fraction is 50-55%. There is normal LV segmental wall motion. Septal motion suggestive of prior CABG Signed by : Peter Grissom, Electronically Approved : 07/15/2019 14:31:41
== END | disposition home or self-care (01) ==
LOC: ECHO 12:50
PROVIDERS: ATTEND Internal Medicine Cardiovascular Disease
DX: I08.0 Rheumatic disorders of both mitral and aortic valves (principal); I27.20 Pulmonary hypertension, unspecified; I25.10 Atherosclerotic heart disease of native coronary artery without angina pectoris
CPT/HCPCS: 93306

== ENCOUNTER → 2019-08-19 | Outpatient (CLI) | payer MEDICARE ==
[2019-07-08 09:31] VITALS: BP 119/71
[~2019-08-19] MED LIST changes: +GADOTERATE 7.5 MMOL/15ML VIAL. IVP ONE; -INSU100V SQ; +INSU100V6 SQ; +LINE600T12 PO; -LINE600T37 PO
--- NOTE | 2019-08-19 13:36 | RAD ---
MR of the left foot HISTORY: Nonhealing diabetic foot ulcer at the ball of the foot beneath the first digit for 3 months. TECHNIQUE: Routine multiplanar sequences are obtained. COMPARISON: June 12, 2019 FINDINGS: Soft tissue defect at the plantar foot between the first and second proximal phalanges compatible with ulcer and/or surgical defect. Adjacent soft tissue induration and enhancement. No organized fluid collection or drainable abscess. Mild localized soft tissue edema and enhancement in this area suggesting cellulitis. No evidence of acute fracture. No aggressive bone destruction. No acute sesamoiditis. No significant joint effusion. DJD particularly at the first MTP joint and sesamoids. Visualized tendons demonstrate no significant tendon sheath fluid or enhancement. Lisfranc ligament complex is intact as is tarsometatarsal joint alignment. IMPRESSION: 1. Soft tissue ulcer or surgical defect plantar to the first and second toes with adjacent mild cellulitis. 2. No evidence of acute osteomyelitis or drainable abscess. Electronically signed by: Cal Murguia MD (08/19/2019 1:34 PM) [facility]
== END | disposition home or self-care (01) ==
LOC: MRI 13:06
PROVIDERS: ATTEND Emergency Medicine Undersea and Hyperbaric Medicine
DX: E11.621 Type 2 diabetes mellitus with foot ulcer (principal); M19.072 Primary osteoarthritis, left ankle and foot
CPT/HCPCS: 73720; A9575

== ENCOUNTER 2019-09-07 10:57 | Day surgery (SDC) | payer MEDICARE ==
[~2019-09-07] VITALS: Ht 180.3 cm; Wt 113.4 kg
[~2019-09-07 10:57] MED LIST changes: -GADOTERATE 7.5 MMOL/15ML VIAL. IVP ONE; +HYDROmorphone 2 MG/ML VIAL IV PRN; +IV NORMAL SALINE 1000ML BAG 1,000 ML IV SCH; +IV RINGERS,LACTATED 1000ML 1,000 ML IV SCH; +MORPHINE SULFATE 2 MG/ML VIAL. IV PRN; +ONDANSETRON PF 4 MG/2 ML VIAL. IV PRN; +PROCHLORPERAZINE 10 MG/2 ML VIAL. IV PRN; +fentaNYL PF VIAL 100 MCG/2 ML VIAL IV PRN
[2019-09-07] MEDS ORDERED: INSU100V13 SQ (11:27)
[2019-09-07] MEDS ORDERED: fentaNYL PF VIAL 100 MCG/2 ML VIAL ONE (11:36)
[2019-09-07] MEDS ORDERED: LIDOCAINE 2% PF 5 ML VIAL. ONE (11:36)
[2019-09-07] MEDS ORDERED: PROPOFOL 20 ML IV ONE (11:36)
[2019-09-07 12:08] LABS: CALCIUM 9.4 mg/dL (8.5-10.1); CREATININE 1.5 mg/dL (0.7-1.3); GFR 46.7; POTASSIUM 4.3 mmol/L (3.5-5.1)
[2019-09-07 12:11] LABS: BASO # 0.1 x10^3/uL (0.0-0.2); BASO % 1 % (0-3); EOS # 0.2 x10^3/uL (0.0-0.7); EOS % 3 % (0-3); HEMATOCRIT 36.4 % (39.0-53.0); HEMOGLOBIN 12.3 g/dL (13.0-17.5); LYMPH # 1.1 x10^3/uL (1.0-4.8); LYMPH % 14 % (24-48); MEAN CORPUSCULAR HEMOGLOBIN 27 pg (25-35); MEAN CORPUSCULAR HGB CONC 34 g/dL (31-37); MEAN CORPUSCULAR VOLUME 80 fL (79-100); MONO # 0.2 x10^3/uL (0.0-1.1); MONO % 3 % (0-9); NEUT # 5.8 x10^3/uL (1.8-7.7); NEUT % 79 % (31-73); PLATELET COUNT 206 x10^3/uL (140-400); RED BLOOD COUNT 4.54 x10^6/uL (4.30-5.70); RED CELL DISTRIBUTION WIDTH 17.1 % (11.5-14.5); WHITE BLOOD COUNT 7.3 x10^3/uL (4.0-11.0)
[2019-09-07] MEDS: INSULIN LISPRO 100 UNIT/ML 3ML VIAL for OP,RR ONLY. SQ PRN ×3 (12:21→14:53)
[2019-09-07] MEDS ORDERED: ceFAZolin 2GM PREMIX 2 GM/50 ML BAG IV ONE (13:00)
[2019-09-07] MEDS ORDERED: LIDOCAINE 1% 20 ML VIAL. ONE (13:02)
[2019-09-07] MEDS ORDERED: SEVOFLURANE 16 TO 30 MINUTES. IH ONE ×2 (13:14→13:23)
[2019-09-07] MEDS ORDERED: PROPOFOL 50 ML IV ONE (13:15)
[2019-09-07] MEDS ORDERED: DEXAMETHASONE SOD PHOS 4 MG/ML VIAL ONE (13:15)
[2019-09-07] MEDS ORDERED: ePHEDrine PF IN SALINE 50 MG/10 ML SYRINGE. IV ONE (13:23)
--- NOTE | 2019-09-07 13:43 | DISCH ---
DISCHARGE INSTRUCTIONS Condition on Discharge Condition on Discharge: Stable Activity After Discharge Activity Instructions for Disc: Activity as tolerated, Other, see below Other activity instructions: with post op shoe operative foot Exercise Instruction after Dis: Progress as tolerated Driving Instructions after Dis: Other, see below Weight Bearing Status after Di: Other, see below Diet after Discharge Diet after Discharge: Diabetic No Calorie Level Additional Diet Restrictions: 1800 Magdi ADA Diet Texture: Regular Wound Incision Care Other wound/incision instructi: wound vac therapy per wound care center Contacting the [facility] after DC Call your doctor for: Concerns you may have Follow-Up Follow up with: 09/26/2019 8:30 Treatment/Equipment after DC Adaptive Equipment Issued: None JEFERSON ZHANG MOLECULAR TECHNOLOGIST Sep 07, 2019 13:43
--- NOTE | 2019-09-07 14:00 | PDOC ---
BRIEF OPERATIVE NOTE Date: Sep 07, 2019 Pre-Op Diagnosis Left foot ulcer Post-Op Diagnosis same Procedure Performed Left foot debridement, web space 1,2nd toe 4x.05x1.5cm Surgeon Dr. Lai Automatic Glove Former Jeferson Zhang,JIA Anesthesia Type: General Blood Loss 25cc Specimens Obtained none Findings adequate skin edge bleeding, wound bed clean, no purulent drainage Complications none Operative Note see dictated note JEFERSON ZHANG MACHINE ENGINEER Sep 07, 2019 14:00
[2019-09-07] MEDS ORDERED: HYDROcodone/APAP 7.5/325MG 1 TAB TABLET PO ONE (14:15)
[2019-09-07 14:40] VITALS: BP 124/62
--- NOTE | 2019-09-07 16:48 | OP ---
DATE OF SURGERY: 09/07/2019 SURGEON: Justa Lai M.D. TOOTH POLISHER: Rajwinder Garner, nurse practitioner. PREOPERATIVE DIAGNOSES: 1. Chronic nonhealing open necrotic wound between his left first and second toe, there is a small opening just between the toes and a second larger opening on the plantar aspect of his foot. Both of these wounds connect and have necrotic tissue. He was seen in the office by Dr. Alfonso and Dr. Alfonso recommended surgical open debridement of the tunneling wound and wound VAC placement. POSTOPERATIVE DIAGNOSES: 1. Chronic nonhealing open necrotic wound between his left first and second toe, there is a small opening just between the toes and a second larger opening on the plantar aspect of his foot. Both of these wounds connect and have necrotic tissue. He was seen in the office by Dr. Alfonso and Dr. Alfonso recommended surgical open debridement of the tunneling wound and wound VAC placement. OPERATION PERFORMED: 1. Left foot sharp excisional debridement of necrotic skin and subcutaneous tissue between the left first and second toes extending onto the plantar aspect of the foot, measurements after open debridement were 4 cm in length x 1.5 cm in depth x 0.5 cm in width. 2. Left foot wound VAC placement to the open wound between the left first and second toes. BLOOD LOSS: Minimal, approximately 2 mL. INDICATIONS: The patient is a 69-year-old male who has had a chronic wound, both on the plantar aspect of his left foot just beneath the first and second metatarsal head region and an open wound between his first and second toe with a tunneling tract. He was seen in the office by Dr. Alfonso and Dr. Alfonso recommended surgical debridement of the wounds, opening the tunnel tract and debriding the unhealthy tissue. He will continue on a wound VAC dressing at home. Informed consent was obtained. ANESTHESIA USED: General anesthesia. DETAILS OF THE OPERATION: The patient was brought into the operating room and placed on table in supine position. He received general anesthesia monitored throughout the case by the anesthesiologist. His left foot and ankle were prepped and draped by normal sterile fashion. I began by using a mosquito. I probed from the small open wound between his left first and second toe and it tunneled to the open wound on the plantar aspect of his foot. There was necrotic tissue as I opened this wound throughout the tunnel tract; therefore, I completely open the wound, incising between the first and second toe down to the plantar aspect of the foot, opening the tunnel, which exposed underlying necrotic tissue. We sharply excised necrotic tissue throughout the wound bed removing necrotic subcutaneous tissue. There was no exposure of the bone. There were no purulent fluid or abscess cavities. We removed callus off of the plantar aspect of the distal wound. We irrigated with copious amounts of antibiotic solution. Hemostasis was gained with electrocautery. We placed a wound VAC sponge within the open wound between the left first and second toe and placed it to suction. He tolerated the surgery well with no immediate complications. JUSTA LAI MD DR: LEBRON/andrae JOB#: [id number] / [id number]
== END 2019-09-07 15:00 | disposition home or self-care (01) ==
LOC: SURG 10:57
PROVIDERS: ATTEND Specialist
DX: T81.89XA Other complications of procedures, not elsewhere classified, initial encounter (principal); I12.9 Hypertensive chronic kidney disease with stage 1 through stage 4 chronic kidney disease, or unspecified chronic kidney disease; E11.22 Type 2 diabetes mellitus with diabetic chronic kidney disease; N18.2 Chronic kidney disease, stage 2 (mild); E78.00 Pure hypercholesterolemia, unspecified; I25.2 Old myocardial infarction; I25.10 Atherosclerotic heart disease of native coronary artery without angina pectoris; K21.9 Gastro-esophageal reflux disease without esophagitis; E66.9 Obesity, unspecified; Z68.34 Body mass index [BMI] 34.0-34.9, adult; Z86.73 Personal history of transient ischemic attack (TIA), and cerebral infarction without residual deficits; Z86.718 Personal history of other venous thrombosis and embolism; Z79.84 Long term (current) use of oral hypoglycemic drugs; Z98.52 Vasectomy status; Z95.1 Presence of aortocoronary bypass graft; Z87.891 Personal history of nicotine dependence; Z90.49 Acquired absence of other specified parts of digestive tract; Z79.899 Other long term (current) drug therapy; Y83.8 Other surgical procedures as the cause of abnormal reaction of the patient, or of later complication, without mention of misadventure at the time of the procedure; Y92.89 Other specified places as the place of occurrence of the external cause
CPT/HCPCS: 11042; 36415; 80048; 82962; 85025; A7015; J0171; J0690; J0696; J1100; J2001; J2704; J3010; J7040; A4461

== ENCOUNTER → 2021-08-21 | Outpatient (CLI) | payer MEDICARE ==
[~2021-08-21] MED LIST changes: -AMIO200T4 PO; +AMIO200T53 PO; +ASPI-630 PO; -HYDROmorphone 2 MG/ML VIAL IV PRN; -IV NORMAL SALINE 1000ML BAG 1,000 ML IV SCH; -IV RINGERS,LACTATED 1000ML 1,000 ML IV SCH; -LISI-334 PO; +LISI20TA18 PO; -MERO500V15 IV; +MERO500V24 IV; -MORPHINE SULFATE 2 MG/ML VIAL. IV PRN; +OMEG-152 PO; -ONDANSETRON PF 4 MG/2 ML VIAL. IV PRN; -PROCHLORPERAZINE 10 MG/2 ML VIAL. IV PRN; +RIVA10TA PO; -fentaNYL PF VIAL 100 MCG/2 ML VIAL IV PRN
--- NOTE | 2021-08-21 09:01 | RAD ---
MR#: [id number] Date of Study: 08/21/2021 Ordering Physician: AMBER MANRIQUEZ, Referring Physician: AMBER MANRIQUEZ, Tech: Daniel Foster MBA, RDMS, RVT, RDCS, RTR APPROVED REPORT Patient Location: OUT-PATIENT Indications AAA Duplex Results A/PTransverseLongitudinal Mid Aorta 4.4cm4.1cm Doppler VelocityWaveform Aorta Mid. 127.0 cm/sec Findings This is a technically difficult study. The proximal and distal abdominal aorta are not well visualized and obscured by bowel gas The mid abdominal aorta appears to be dilated with a maximum transverse dimension of 4.4 cm. Critical Notification Critical Value: No <Conclusion> 1. Moderate abdominal aortic aneurysm measuring 4.4 cm 2. Technically difficult study, consider CT angiography for further evaluation Signed by : Amber Manriquez, Electronically Approved : 08/21/2021 09:01:27
--- NOTE | 2021-08-21 09:04 | RAD ---
MR#: [id number] Date of Study: 08/21/2021 Ordering Physician: AMBER MANRIQUEZ, Referring Physician: AMBER MANRIQUEZ, Tech: Daniel Foster MBA, RDMS, RVT, RDCS, RTR APPROVED REPORT Patient Location: OUT-PATIENT Indications Rest Pain:Bilaterally VELOCITY AND DOPPLER WAVEFORM ANALYSIS RIGHT cm/secWaveformSeverity LEFT cm/secWaveform Severity dCFA 180.0BiphasicdCFA 152.0Biphasic Prof Fem Art. 169.0BiphasicProf Fem Art. 71.0Biphasic Fem Art Prox. 34.0BiphasicFem Art Prox. 116.0Biphasic Fem Art Mid. 405.0MonophasicFem Art Mid. 151.0Biphasic Fem Art Dist. 164.0MonophasicFem Art Dist. 87.0Biphasic Pop Art(Fossa) 57.0MonophasicPop Art(AK) 90.0Biphasic LOCOMOTIVE OPERATOR Prox. OccludedPTA Prox. 112.0Monophasic LOCOMOTIVE OPERATOR Dist. OccludedPTA Dist. 20.0Monophasic ARANZA Prox. 60.0MonophasicATA Prox. Occluded DPA 13MonophasicDPA 22Monophasic Findings Grayscale images of the bilateral lower extremity arterial vessels are limited but demonstrate modera te diffuse atherosclerosis. On the right side there is likely a greater than 75% stenosis involving the mid SFA. Below the knee the popliteal artery demonstrates monophasic waveforms in the posterior tibial and peroneal arteries are not well visualized. The anterior tibial artery appears to be patent with a distal small vessel disease. On the left side no significant disease is noted from the common femoral artery to the popliteal segm ent. Below the knee there is likely a greater than 50% stenosis involving the posterior tibial arter y. The anterior tibial artery and peroneal artery are not well visualized. Critical Notification Critical Value: No <Conclusion> 1. Greater than 75% stenosis involving the right SFA 2. Bilateral severe below-knee disease as described above. Signed by : Amber Manriquez, Electronically Approved : 08/21/2021 09:04:23
== END ==
LOC: US 10:19
PROVIDERS: ATTEND Internal Medicine Cardiovascular Disease
DX: I70.203 Unspecified atherosclerosis of native arteries of extremities, bilateral legs (principal); I71.4 Abdominal aortic aneurysm, without rupture
CPT/HCPCS: 76770; 93925

== ENCOUNTER → 2021-08-22 | Outpatient (CLI) | payer MEDICARE ==
[~2021-08-22] MED LIST changes: +PERFLUTREN PROTEIN-A MICROSPHR 0.22 MG/ML 3 ML VIAL. IV ONE; +REGADENOSON 0.4 MG/5 ML DISP.SYRIN. IV ONE
--- NOTE | 2021-08-22 16:49 | RAD ---
MR#: [id number] Date of Study: 08/22/2021 Ordering Physician: AMBER GRISSOM, Referring Physician: MARINO TOLENTINO Tech: KO Aj, ARRT (R) (N) APPROVED REPORT Test Type: Pharmacological Stress Nurse/Tech: ZACKARY TEJADA Test Indications: CAD Cardiac History: CAD, IA, CABG, HTN- SEE EMR Medications: SEE EMR Medical History: SEE EMR Resting ECG: SR W/PAC'S Resting Heart Rate: 64 bpm Resting Blood Pressure: 145/59mmHg Pretest Chest Pain: No chest pain Nurse/Tech Notes S1,S2, LUNGS CTA, VSS, DENIED CHEST PAIN OR SHORTNESS OF AIR. Consent: The procedure was explained to the patient in lay terms. Informed consent was witnessed. Matt eout was entered into [employer]. History and Stress Test performed by TIARA Guerra Pharm. Details Pharmacologic stress testing was performed using 0.4mg per 5ml of regadenoson given intravenously ove r 7-10 seconds. Stress Symptoms PT HAD A BRIEF SPISODE OF SHORTNESS OF BREATH, DURING INITIAL TESTING. PT'S SYMPTOMS RESOLVED AFTER A COUPLE MINUTES. POST EXERCISE Reason for Termination: Infusion complete Max HR: 79 bpm Max Blood Pressure: 115/45mmHg Blood Pressure response to exercise: Abnormal blood pressure response during stress. Heart Rate response to exercise: WNL Chest Pain: No. Arrhythmia: . NO SIGNIFICANT CHANGES FROM BASELINE EKG, SR W/PAC'S, INVERTED T WAVES IN VARIOUS LEADS INTERPRETATION Stress EKG Conclusion: No evidence of stress induced EKG changes Imaging Protocol IMAGE PROTOCOL: Rest Tc-99m/stress Tc-99m 1 day Rest: Stress: Viability: Radiopharm.Tc99m EbtwzcymtRy35l Sestamibi Uhph03lOe 30mCi Img Date 08/22/2021 08/22/2021 Inj-Img Dkcj13edb. 60min. Rest Admin Site:IV - Left WristAdministrator:RT Zahra (R)(N) Stress Admin Site: IV - Left WristAdministrator: TIARA Guerra STRESS DATA End Diast. Vol.80.0mlLVEDV index BSA33.0ml End Syst. Vol.21.0mlLVESV index BSA9.0ml Myocardial Dmqj664.0gEject. Uziwteoi36.0% Stress Scores Regional WT2.00Summed WT27.00 Regional WM0.00Summed WM5.00 The rest and stress images show normal perfusion, normal contraction and thickening. LV Perf. Quant 17 Seg. SSS4.00 17 Seg. SRS0.00 17 Seg. SDS4.00 Stress Defect Extent (% LAD)0.00Rest Defect Extent (% LAD)0.00Rev. Defect Extent (% LAD)0.00 Stress Defect Extent (% LCX) 28.80Rest Defect Extent (% LCX)0.00Rev. Defect Extent (% LCX)21.30 Stress Defect Extent (% RCA)0.00Rest Defect Extent (% RCA)0.00Rev. Defect Extent (% RCA)0.00 Stress Defect Extent (% DILLON)7.60Rest Defect Extent (% DILLON)0.00Rev. Defect Extent (% DILLON)5.70 Other Information Quality:Fair Risk Assessment: Low Risk Conclusion 1. No evidence of EKG changes with stress testing. 2. Normal perfusion at stress/rest. 3. Low risk study. 4. EF > 60%. Signed by : Amber Grissom, Electronically Approved : 08/22/2021 16:48:59
--- NOTE | 2021-08-23 11:38 | CARD ---
MR#: [id number] Date of Study: 08/22/2021 Ordering Physician: GABBIE JONES, Referring Physician: Ce PELAYO: Cosme Beasley [facility] APPROVED REPORT EXAM: Two-dimensional and M-mode echocardiogram with Doppler and color Doppler. Other Information Quality : FairHR: 63bpm Rhythm : NSRTechnically limited study due to body habitus. INDICATION Cardiac Disease: CAD Echo Enhancing Agent Agent/Amount Used: Optison 5mL RISK FACTORS Hypertension Obesity Hyperlipidemia Diabetes 2D DIMENSIONS Left Atrium(2D)4.2 (1.6-4.0cm)IVSd1.2 (0.7-1.1cm) Aortic Root(2D)3.2 (2.0-3.7cm)LVDd5.2 (3.9-5.9cm) LVOT Diameter2.0 (1.8-2.4cm)PWd1.2 (0.7-1.1cm) LVDs2.7 (2.5-4.0cm)FS (%) 47.3 % SV99.5 mlLVEF(%)78.4 (>50%) Aortic Valve AoV Peak Grzegorz.132.7cm/sAoV VTI26.9cm AO Peak GR.7.0mmHgLVOT Peak Grzegorz.125.8cm/s AO Mean GR.4mmHgAVA (VMAX)3.01cm2 Mitral Valve MV E Xfrqagtk52.2cm/sMV E Peak Gr.3mmHg MV DECEL [id number] A Mvcztgsv17.9cm/s MV E Mean Gr.1mmHgE/A Ratio0.8 Pulmonary Valve PV Peak Dfsgpfwi550.0cm/s Tricuspid Valve TR P. Wnismflv382fz/sTR Peak Gr.25mmHg Pulmonary Vein S1 Nnjuafhu04.8cm/sD2 Nkofaycf04.0cm/s LEFT VENTRICLE The left ventricle is normal size. There is mild concentric left ventricular hypertrophy. The left ve ntricular systolic function is normal and the ejection fraction is within normal range. EF 55% Septal motion suggestive of prior CABG. Otherwise, there is grossly normal LV segmental wall motion. Techni aiden limited images. Transmitral Doppler flow pattern is Grade I-abnormal relaxation pattern. No lef t ventricle thrombus noted on this study. There is no ventricular septal defect visualized. There is no left ventricular aneurysm. RIGHT VENTRICLE The right ventricle is normal size. There is normal right ventricular wall thickness. The right ventr icular systolic function is normal. ATRIA The left atrium is mildly dilated. The right atrium size is normal. The interatrial septum is intact with no evidence for an atrial septal defect or patent foramen ovale as noted on 2-D or Doppler imagi ng. AORTIC VALVE The aortic valve is not well visualized. Doppler and Color Flow revealed no significant aortic regurg itation. There is no significant aortic valvular stenosis. There is no aortic valvular vegetation. MITRAL VALVE Not well visualized. Grossly appears normal. There is no evidence of mitral valve prolapse. There is no mitral valve stenosis. Doppler and Color Flow revealed no mitral valve regurgitation noted. TRICUSPID VALVE Not well visualized. Doppler and Color Flow revealed mild tricuspid regurgitation. There is no tricus pid valve stenosis. PULMONIC VALVE Not well visualized. Doppler and Color Flow revealed no pulmonic valvular regurgitation. There is no pulmonic valvular stenosis. GREAT VESSELS The aortic root is normal in size. The ascending aorta is normal in size. The IVC is normal in size a nd collapses >50% with inspiration. PERICARDIAL EFFUSION There is no pleural effusion. There is no evidence of significant pericardial effusion. Critical Notification Critical Value: No <Conclusion> The left ventricular systolic function is normal and the ejection fraction is within normal range. EF 55% Septal motion suggestive of prior CABG. Otherwise, there is grossly normal LV segmental wall motion. Technically limited images. Signed by : Peter Grissom, Electronically Approved : 08/23/2021 11:38:34
== END ==
LOC: NM 08:26
PROVIDERS: ATTEND Internal Medicine Cardiovascular Disease
DX: I36.1 Nonrheumatic tricuspid (valve) insufficiency (principal); I11.9 Hypertensive heart disease without heart failure; I25.10 Atherosclerotic heart disease of native coronary artery without angina pectoris
CPT/HCPCS: 78452; 93017; 93306; A9500; J2785; Q9956

== ENCOUNTER 2021-09-09 09:06 | Outpatient (CLI) | payer MEDICARE ==
[~2021-09-09] VITALS: Ht 180.3 cm; Wt 115.9 kg
[2021-09-09] VITALS (12 sets, daily range): BP systolic 120–175; BP diastolic 53–79
[~2021-09-09 09:06] MED LIST changes: -ASPI-630 PO; -OMEG-152 PO; -PERFLUTREN PROTEIN-A MICROSPHR 0.22 MG/ML 3 ML VIAL. IV ONE; -REGADENOSON 0.4 MG/5 ML DISP.SYRIN. IV ONE; -RIVA10TA PO
[2021-09-09] MEDS ORDERED: RIVA10TA PO (09:38)
[2021-09-09] MEDS ORDERED: OMEG-152 PO (09:38)
[2021-09-09] MEDS ORDERED: ASPI-630 PO (09:38)
[2021-09-09] MEDS ORDERED: INSU100I17 SQ (09:38)
[2021-09-09 09:41] LABS: CALCIUM 8.8 mg/dL (8.5-10.1); CREATININE 1.4 mg/dL (0.7-1.3); GFR 50.2; POTASSIUM 4.4 mmol/L (3.5-5.1)
[2021-09-09 09:57] LABS: HEMATOCRIT 39.2 % (39.0-53.0); HEMOGLOBIN 12.9 g/dL (13.0-17.5); RED BLOOD COUNT 4.78 x10^6/uL (4.30-5.70); RED CELL DISTRIBUTION WIDTH 15.8 % (11.5-14.5); WHITE BLOOD COUNT 7.2 x10^3/uL (4.0-11.0)
[2021-09-09] MEDS ORDERED: IODIXANOL 320 MG/ML 100 ML VIAL. ONE (10:01)
[2021-09-09 10:25] LABS: PROTHROMBIN TIME PATIENT 13.3 SEC (11.7-14.0)
[2021-09-09] MEDS ORDERED: MIDAZOLAM HCL/PF 2 MG/2 ML VIAL. ONE ×2 (10:27→11:14)
[2021-09-09] MEDS ORDERED: fentaNYL PF VIAL 100 MCG/2 ML VIAL ONE (10:27)
[2021-09-09] MEDS ORDERED: VERAPAMIL 5 MG/2 ML VIAL. ONE ×2 (10:27→11:14)
[2021-09-09] MEDS ORDERED: HEPARIN for IV BOLUS 10,000 UNIT/10 ML VIAL. ONE ×2 (10:27→11:23)
[2021-09-09] MEDS ORDERED: LIDOCAINE 1% PF 2 ML VIAL. ONE (10:41)
[2021-09-09] MEDS ORDERED: hydrALAZINE 20 MG/ML VIAL. ONE (10:53)
[2021-09-09] MEDS ORDERED: fentaNYL PF VIAL 100 MCG/2 ML VIAL IV ONE (11:00)
[2021-09-09] MEDS ORDERED: VERAPAMIL 5 MG/2 ML VIAL. IART ONE ×2 (11:00→11:30)
[2021-09-09] MEDS ORDERED: LIDOCAINE 1% PF 2 ML VIAL. INJ ONE (11:00)
[2021-09-09] MEDS ORDERED: MIDAZOLAM HCL/PF 2 MG/2 ML VIAL. IV ONE (11:00)
[2021-09-09] MEDS ORDERED: NITROGLYCERIN 200 MCG/2 ML SYRINGE FOR CATH/VASC LAB. IART ONE ×2 (11:00→11:30)
[2021-09-09] MEDS ORDERED: hydrALAZINE 20 MG/ML VIAL. IVP ONE (11:00)
[2021-09-09] MEDS ORDERED: HEPARIN for IV BOLUS 10,000 UNIT/10 ML VIAL. IART ONE (11:00)
[2021-09-09] MEDS ORDERED: IODIXANOL 320 MG/ML 100 ML VIAL. IART ONE (11:00)
[2021-09-09] MEDS ORDERED: NITROGLYCERIN 200 MCG/2 ML SYRINGE FOR CATH/VASC LAB. ONE ×2 (11:15→11:16)
[2021-09-09] MEDS ORDERED: NITROGLYCERIN 4 MG/20 ML SYRINGE for CATH LAB. ONE ×2 (11:24→11:30)
[2021-09-09] MEDS ORDERED: CLOPIDOGREL BISULFATE 75 MG TABLET PO ONE (12:00)
[2021-09-09] MEDS ORDERED: CLOPIDOGREL BISULFATE 75 MG TABLET ONE (12:06)
--- NOTE | 2021-09-09 12:23 | PDOC ---
MODERATE SEDATION ASSESSMENT RISKS/ALTERNATIVES Risks/Alternatives Risks and alternatives of this type of sedation and procedure discussed with: RISK/ALTERNATIVES: Patient H & P ON CHART H & P H & P on chart and reviewed for co-morbid conditions and appropriate labs. H&P ON CHART: Yes STATUS PREG STATUS ASSESSED: N/A MEDS/ALLERGIES REVIEWED Meds/Allergies Reviewed Medications and Allergies including time and route of recently administered narcotics and sedatives. MEDS/ALLERGIES REVIEWED: Yes ASA RATING ASA RATING: II AIRWAY ASSESSMENT Airway Assessment Airway patency, oral function limitations, presence of caps, crowns, dentures, partials, and ability to extend neck assessed. AIRWAY ASSESSMENT: Yes MALLAMPATI SCORE MALLAMPATI SCORE: II PRE-SEDATION ASSESSMENT PRE-SEDATION ASSESSMENT: Yes GABBIE JONES MD Sep 09, 2021 12:23
[2021-09-09] MEDS ORDERED: IV 1/2 NORMAL SALINE 1,000 ML IV SCH (12:30)
[2021-09-09] MEDS ORDERED: ACETAMINOPHEN 325 MG TABLET. PO PRN (12:30)
--- NOTE | 2021-09-09 12:46 | CARD ---
MR#: [id number] Date of Study: 09/09/2021 Ordering Physician: GABBIE JONES, Referring Physician: GABBIE JONES Tech: Jenni Buenrostro RT(R) APPROVED REPORT Patient StatusOUT-PATIENT Barmaid: Jenni Buenrostro RT(R) Procedure(s) performed: 1. Aortogram with bilateral lower extremity runoff via right transradial lenny easton 2. Successful orbital atherectomy/MANNEQUIN MAKER/stent placement to right superficial femoral artery MODERATE SEDATION TIME: 86 MINUTES FLUORO TIME: 20.9 MIN DOSE: 131.8 GYCM2 CONTRAST: 114CC VISI INDICATION FOR PROCEDURE The indication(s) include : Peripheral artery disease with claudication and abnormal arterial duplex scan. CASE TECHNIQUE After explaining the risks, benefits, and alternative options, informed consent was obtained from the patient. IV conscious sedation was used throughout procedure with appropriate monitoring and was per formed in the presence of a registered nurse who was an independent trained observer other than the chari muñozan performing the procedure. During this case, Fluoroscopy and low osmolar contrast were used f or imaging. Specimen(s) Removed: No Estimated Blood loss: 15 cc's. PROCEDURE NARRATIVE Patient was brought to the cardiac Block Cutter and his right wrist was prepped and draped in the usual f ashion. Arterial access was obtained in the right radial artery and 6 Israeli sheath was inserted. A 6 Israeli pigtail catheter was positioned in the descending aorta and aortoiliac angiography was perf ormed. Subsequently, a 4 Israeli R2P PV multicurve catheter was advanced under fluoroscopic guidance and with the tip position in the left external iliac artery, selective left lower extremity angiograp hy was performed. The catheter was then withdrawn and advanced into the right external iliac artery and selective right lower extremity angiography was performed. The following findings were noted: FINDINGS 1. Infrarenal abdominal aortic aneurysm noted (known history) 2. No significant stenosis involving bilateral common and external iliac arteries 3. No significant stenosis involving bilateral common femoral arteries 4. No significant stenosis involving bilateral deep femoral arteries. The right superficial femoral artery showed tandem 90 and 99% calcified stenosis noted in the midsegment. The left superficial fe moral artery showed 30% stenosis in the midsegment. 5. No significant stenosis involving bilateral popliteal arteries. 6. There is one-vessel runoff below the knee bilaterally via peroneal arteries. The anterior and po sterior tibial arteries bilaterally showed chronic total occlusions proximally. INTERVENTION The sheath in the right wrist and the PVI catheters were exchanged to a 6 Israeli 119 cm destination s zoraida which was advanced to the right common iliac artery under fluoroscopic guidance. The stenosis in the right superficial femoral artery were crossed with a 0.014 inch command ES guidewire which was then exchanged to a Viper wire. Multiple orbital atherectomy passes were then performed within the lesions using CSI 1.5 diamondback peripheral orbital atherectomy catheter. The lesions were then dil ated with a 5 x 18 mm Maritza MANNEQUIN MAKER balloon. Since the proximal lesion showed recoil with small nonflow l imiting dissection, this was treated with a 6.0 x 60 mm Terumo Misago balloon. Follow-up angiography showed resolution of the lesions with good distal flow. Patient tolerated the procedure well. Hemo stasis was achieved using TR band. There were no immediate complications. Conclusion 1. 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 Successful orbital atherectomy/MANNEQUIN MAKER/stent placement to the right superficial femoral artery Recommendations Vascular risk factor modification Signed by : Gabbie Jones, Electronically Approved : 09/09/2021 12:46:11
[2021-09-09] MEDS ORDERED: CLOP75TA PO (13:15)
--- NOTE | 2021-09-09 14:20 | NUR ---
Discharge Note: [facility] Discharge instructions and discharge home medications reviewed with Revenue Coordinator and a copy given. All questions have been answered and understanding verbalized. The following instructions and handouts were given: radial site care and adult moderate sedation Discontinued lines and drains: Peripheral IV intact. Patient discharged to Home or Self Care withFamily Membervia Wheelchair.
[2021-09-10] MEDS ORDERED: CLOPIDOGREL BISULFATE 75 MG TABLET PO SCH (08:00)
== END 2021-09-09 14:35 | disposition home or self-care (01) ==
LOC: CCL 09:06
PROVIDERS: ATTEND Internal Medicine Cardiovascular Disease
DX: I73.9 Peripheral vascular disease, unspecified (principal); I25.10 Atherosclerotic heart disease of native coronary artery without angina pectoris; I71.4 Abdominal aortic aneurysm, without rupture; I10 Essential (primary) hypertension; E78.00 Pure hypercholesterolemia, unspecified; J44.9 Chronic obstructive pulmonary disease, unspecified; K21.9 Gastro-esophageal reflux disease without esophagitis; E11.9 Type 2 diabetes mellitus without complications; M19.90 Unspecified osteoarthritis, unspecified site; F32.9 Major depressive disorder, single episode, unspecified; Z86.73 Personal history of transient ischemic attack (TIA), and cerebral infarction without residual deficits; Z98.890 Other specified postprocedural states; Z90.49 Acquired absence of other specified parts of digestive tract; Z87.891 Personal history of nicotine dependence; Z79.82 Long term (current) use of aspirin; Z79.4 Long term (current) use of insulin; Z79.899 Other long term (current) drug therapy; Z88.0 Allergy status to penicillin
CPT/HCPCS: 36415; 37227; 75625; 75716; 80048; 85027; 85610; 99152; 99153; C1724; C1769; C1876; C1887; C1894; J0360; J1644; J2250; J3010; J3490; J7030; Q9967